=== PATIENT | male | born 1935 | race Caucasian/White ===

== ENCOUNTER 2016-06-26 09:09 | Emergency (ER) | payer BC ==
[~2016-06-26] VITALS: Ht 167.6 cm; Wt 88.6 kg
[~2016-06-26 09:09] MED LIST: AGG PO; ALBU1AER9 INH; ALLO100T PO; ASCO500T16 PO; ATOR-26 PO; CALC1CAP36 PO; CARV6.252 PO; CLON1TAB3 PO; DUTA0.5C PO; EZET10TA63 PO; FISHOIL PO; FLUT0.15 NAE; FURO-85 PO; FURO40TA3 PO; LEVO150T9 PO; MELA3TAB PO; MULTTAB58 PO; NRV5 PO; OMEP20CA59 PO; TRAM-10 PO
[2016-06-26 09:12] VITALS: TEMP 36.7; Ht 167.6 cm; Wt 88.6 kg
[2016-06-26] MEDS ORDERED: ZOLP10TA6 PO (09:31)
[2016-06-26] MEDS ORDERED: FERR1TAB13 PO (09:31)
[2016-06-26] MEDS ORDERED: OMEGCAP2 PO (09:31)
[2016-06-26] MEDS ORDERED: GUAI1TAB75 PO (09:31)
[2016-06-26] MEDS ORDERED: UMEC1AER INH (09:31)
[2016-06-26] MEDS ORDERED: VNTHFA/IN INH (09:31)
[2016-06-26] MEDS ORDERED: FLVHFA110 INH (09:31)
[2016-06-26] MEDS ORDERED: NITR0.4S UT (09:31)
[2016-06-26] MEDS ORDERED: OXYCODONE HCL IR 5 MG TAB (IMMEDIATE RELEASE) PO STA (09:43)
[2016-06-26] MEDS ORDERED: ACYCLOVIR 400 MG TAB PO SCH (09:45)
[2016-06-26] MEDS ORDERED: ACYC-223 PO (09:48)
[2016-06-26] MEDS ORDERED: OXYC1TAB3 PO (09:48)
[2016-06-26 11:01] VITALS: BP 144/67; PULSE 57; O2SAT 98
--- NOTE | 2016-06-26 14:27 | EMERGENCY ROOM VISIT NOTE ---
History Report prepared by Tom: Colleen Rm Under the Supervision of: Dr. Sammy Almendarez D.O. First contact with patient: 09:22 Chief Complaint: ARM PAIN Stated Complaint: RT ARM PAIN History of Present Illness The patient is a 81 year old male who presents to the Emergency Room with complaints of worsening right arm pain that started 3 days ago. He describes the pain as burning. The patient also intermittently experiences right-sided chest pain that is similar to the burning pain that he experiences in his arm. He adds that he has some pain in his right shoulder and the right side of his back also. The patient states that nothing makes the pain better or worse. The patient states that he has not noticed any rash, but the nurse told him that he has blisters on his right arm and right chest. The patient states that the blisters are painful to the touch. He states that he thinks he had chicken pox as a kid, but he is not entirely sure. He states that he got the shingles shot. The patient is also experiencing shortness of breath, but states that it is not anything abnormal for him. He adds that he also has lower extremity edema, but that is not new because his kidney function is bad. The patient denies any other complaints, including nausea, vomiting, and diarrhea. Source of History: patient Onset: 3 days ago Position: arm (right) Quality: burning Timing: worsening Modifying Factors (Worsening): other (None) Modifying Factors (Relieving): other (None) Associated Symptoms: + back pain (right-sided), + chest pain (right-sided), + rash (blisters), No diarrhea, No nausea, No vomiting Review of Systems See HPI for pertinent positives & negatives. A total of 10 systems reviewed and were otherwise negative. 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 (11) Hypothyroidism (12) HYPOTHYROIDISM NOS (13) KNEE JOINT REPLACEMENT STATUS (14) MALIG MELANOMA TRUNK (15) PERSONAL HX OF TIA,& CEREBRAL INFARCTION W/OUT RES DEFICITS (16) PURE HYPERCHOLESTEROLEM (17) TIA (transient ischemic attack) Family History Hypertension Social History Smoking Status: Former Smoker Alcohol Use: occasionally Marital Status: Housing Status: lives with family Occupation Status: retired Current/Historical Medications Scheduled Acyclovir (Zovirax), 800 MG PO 5 TIMES DAILY Allopurinol (Zyloprim), 100 MG PO DAILY Amlodipine Besylate (Amlodipine Besylate), 10 MG PO QPM Ascorbic Acid (Ascorbic Acid), 500 MG PO DAILY Aspirin-Dipyridamole 25MG/200MG (Aggrenox 200MG/25MG), 1 CAPSULE PO BID Atorvastatin (Lipitor), 80 MG PO HS Carvedilol (Coreg), 6.25 MG PO BID Dutasteride (Avodart), 0.5 MG PO QPM Ezetimibe (Zetia), 10 MG PO HS Ferrous Sulfate (Kp Ferrous Sulfate), 325 MG PO 2XWK Fluticasone Propionate (Flovent Hfa), 2 PUFFS INH BID Furosemide (Lasix), 40 MG PO Q2D Furosemide (Lasix), 20 MG PO Q2D Guaifenesin La (Guaifenesin Er), 600 MG PO HS Levothyroxine Sodium (Levothyroxine Sodium), 150 TAB PO DAILY Multiple Vitamin (Multivitamin), 1 TABLET PO DAILY Nitroglycerin (Nitrostat), 0.4 MG UT PRN [place]-3 Fatty Acids (Fish Oil), 1 CAP PO BID Omeprazole (Prilosec), 20 MG PO DAILY Umeclidinium-Vilanterol (Anoro Ellipta 62.5-25 Mcg/INH), 1 PUFF INH DAILY Scheduled PRN Albuterol Hfa (Ventolin Hfa), 2 PUFFS INH Q4H PRN for Wheezing Fluticasone Propionate (Nasal) (Flonase Allergy Relief), 2 SPRAYS STEFFANIE DAILY PRN for CONGESTION Oxycodone Immediate Rel Tab (Roxicodone Ir), 1-2 TAB PO Q4H PRN for Severe Pain Tramadol (Ultram), 50 MG PO Q6H PRN for Pain Zolpidem Tartrate (Zolpidem Tartrate), 10 MG PO HS PRN for Sleep Allergies Coded Allergies: Nabumetone (Verified Adverse Reaction, Severe, ELEVATED RENAL FUNCTION , ) ELEVATED RENAL FUNCTION TEST RELATED TO NAISD'S USE PER DR CHAVIRA'S CONSULT INFO Physical Exam Vital Signs Date Time Temp Pulse Resp B/P Pulse Ox O2 Delivery O2 Flow Rate FiO2 06/26/16 11:01 57 20 144/67 98 Room Air 06/26/16 09:12 36.7 60 18 146/77 97 Room Air Physical Exam GENERAL: alert, sitting up in bed, well appearing, well nourished, no distress, non-toxic EYE EXAM: normal conjunctiva OROPHARYNX: no exudate, no erythema, lips, buccal mucosa, and tongue normal and mucous membranes are moist NECK: supple, no nuchal rigidity, no adenopathy, non-tender LUNGS: Clear to auscultation. Normal chest wall mechanics HEART: no murmurs, S1 normal and S2 normal ABDOMEN: abdomen soft, non-tender, normo-active bowel sounds, no masses, no rebound or guarding. BACK: Back is symmetrical on inspection and there is no deformity, no midline tenderness, no CVA tenderness. SKIN: Erythematous, vesicular rash in T3 dermatome on the right tracking from right chest through armpit to back, lesions are extremely tender to palpation, no surrounding induration. UPPER EXTREMITIES: upper extremities are grossly normal. LOWER EXTREMITIES: No pitting edema. NEURO EXAM: Normal sensorium Medical Decision & Procedures Medications Administered Medications (Trade) Dose Ordered Sig/Ivan Route Start Time Stop Time Status Last Admin Dose Admin Acyclovir (Zovirax Tab) 800 mg NOW PO 06/26/16 09:45 06/26/16 11:40 DC 06/26/16 11:01 800 MG Oxycodone HCl (Roxicodone Immediate Rel Tab) 5 mg NOW STAT PO 06/26/16 09:43 06/26/16 09:46 DC 06/26/16 10:14 5 MG ED Course ED COURSE: Vital signs were reviewed and showed normal. The patients medical record was reviewed The above diagnostic studies were performed and reviewed. ED treatments and interventions as stated above. 0926: The patient was evaluated in room B2. A complete history and physical examination was performed. 0943: Ordered Oxycodone HCl 5 mg PO 0945: Ordered Acyclovir 800 mg PO 0956: Upon reevaluation, the patient is doing well. I discussed my findings with the patient and he understands and agrees with the treatment plan. Based on the patients age, coexisting illnesses, exam and lab findings the decision to treat as an outpatient was made. The patient remained stable while under my care. The patient appeared well at the time of discharge. Medical Decision Differential diagnoses includes but is not limited to acute coronary syndrome, myocardial infarction, pericarditis, pulmonary embolus, aortic dissection, pneumonia, pneumothorax, musculoskeletal, shingles, esophageal. Patient is an 81-year-old male who presents the ER for right arm pain which has been present for the past 3 days. Upon presentation he is found have a rash which is erythematous and vesicles present in dermatomal T3. This tracks under his armpit is consistent with his pain. He is hypersensitive in this region. No new shortness of breath. On exam he has a clear zoster outbreak. Patient was updated in regards to his findings was discharged with acyclovir and OxyIR to follow-up with his primary care doctor. Discussed with Pt concerning signs and symptoms to watch out for. Pt was instructed to follow up with their PCP and discussed with the patient their option to return to the ED at anytime for persistent or worsening symptoms. The appropriate anticipatory guidance and out- patient management, including indications for return to the emergency department , were explained at length to the patient and understood. Impression Primary Impression: Zoster Scribe Attestation The scribe's documentation has been prepared under my direction and personally reviewed by me in its entirety. I confirm that the note above accurately reflects all work, treatment, procedures, and medical decision making performed by me. Departure Information Dispostion Home / Self-Care Prescriptions Oxycodone Immediate Rel Tab (ROXICODONE IR) 5 Mg Tab 1-2 TAB PO Q4H Y for Severe Pain, #24 TAB Prov: Sammy Almendarez, DO 06/26/16 Acyclovir (Zovirax) 800 Mg Tab 800 MG PO 5 TIMES DAILY for 7 Days, TAB Prov: Sammy Almendarez, DO 06/26/16 Referrals Michael Bennett M.D. (PCP) Forms HOME CARE DOCUMENTATION FORM, IMPORTANT VISIT INFORMATION Patient Instructions My [facility], Shingles Herpes Zoster Additional Instructions Please follow up with your primary care doctor with in the next 24 hours. Any worsening of your symptoms, please return to the ED immediately. This includes fevers greater than 100.4, worsening pain, passing out, or significant redness around the rash, or any other concerning signs or symptoms from your standpoint. Please take pain medications as prescribed along with the acyclovir. You were given medications during this visit that will inhibit your ability to drive, operate machinery and work. Please do NOT drive, operate machinery or work for the next 12hrs. You were also given a prescription for a narcotic/oxy IR. While taking this medication you should also not drive, operate machinery and or work. Problem Qualifiers Primary Impression: Zoster Herpes zoster complications: unspecified herpes zoster complication Qualified Codes: B02.8 - Zoster with other complications
== END 2016-06-26 11:03 | disposition home or self-care (01) ==
LOC: C.EDB 09:10
DX: B02.8 Zoster with other complications (principal); N18.4 Chronic kidney disease, stage 4 (severe); I12.9 Hypertensive chronic kidney disease with stage 1 through stage 4 chronic kidney disease, or unspecified chronic kidney disease; Z86.73 Personal history of transient ischemic attack (TIA), and cerebral infarction without residual deficits; I25.10 Atherosclerotic heart disease of native coronary artery without angina pectoris; M10.9 Gout, unspecified; E78.5 Hyperlipidemia, unspecified; E03.9 Hypothyroidism, unspecified; Z96.659 Presence of unspecified artificial knee joint; Z85.820 Personal history of malignant melanoma of skin; Z82.49 Family history of ischemic heart disease and other diseases of the circulatory system; Z87.891 Personal history of nicotine dependence; N40.0 Benign prostatic hyperplasia without lower urinary tract symptoms; E11.9 Type 2 diabetes mellitus without complications; Z79.899 Other long term (current) drug therapy; E78.00 Pure hypercholesterolemia, unspecified

== ENCOUNTER 2016-07-13 09:42 | Emergency (ER) | payer BC ==
[~2016-07-13] VITALS: Ht 165.1 cm; Wt 83.6 kg
[~2016-07-13 09:42] MED LIST changes: -ALBU1AER9 INH; -CALC1CAP36 PO; -CLON1TAB3 PO; +FERR1TAB13 PO; -FISHOIL PO; +FLVHFA110 INH; +GUAI1TAB75 PO; -MELA3TAB PO; +NITR0.4S UT; +OMEGCAP2 PO; +OXYC1TAB3 PO; +UMEC1AER INH; +VNTHFA/IN INH; +ZOLP10TA6 PO
[2016-07-13 09:49] VITALS: TEMP 36.5; Ht 165.1 cm; Wt 83.6 kg
[2016-07-13] MEDS ORDERED: GABAPENTIN 300 MG CAP PO STA (10:35)
[2016-07-13] MEDS ORDERED: SODIUM CHLORIDE 0.9% 1000ML 1,000 ML IV STA (10:35)
[2016-07-13] MEDS ORDERED: FENTANYL CITRATE INJ 50 MCG/1 ML 2 ML VIAL IV STA (10:35)
--- NOTE | 2016-07-13 10:41 | EMERGENCY ROOM VISIT NOTE ---
History Report prepared by Tom: Jairo Villagran Under the Supervision of: Dr. Monica Goodrich M.D. First contact with patient: 10:18 Chief Complaint: RIB PAIN Stated Complaint: BEHIND SHOULDER/RIB PAIN History of Present Illness The patient is an 81 year old male who presents to the Emergency Room with complaints of persistent shingles-associated pain. The pain has been severe over the past two days. The patient has shingles over his right rib and shoulder area. The patient did not have any relief with oxycodone last night. He follows with Dr. Bennett. The patient has been in the ED with shingles two weeks ago as well. Source of History: patient Onset: two days Position: other (right rib / shoulder) Symptom Intensity: severe Quality: other (shingles-associated) Timing: other (persistent) Modifying Factors (Relieving): other (no relief with Oxycodone) Review of Systems See HPI for pertinent positives & negatives. A total of 10 systems reviewed and were otherwise negative. 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,& CEREBRAL INFARCTION W/OUT RES DEFICITS (16) PURE HYPERCHOLESTEROLEM (17) TIA (transient ischemic attack) Family History Hypertension Social History Smoking Status: Former Smoker Alcohol Use: occasionally Marital Status: Housing Status: lives with family Occupation Status: retired Current/Historical Medications Scheduled Allopurinol (Zyloprim), 100 MG PO DAILY Amlodipine Besylate (Amlodipine Besylate), 10 MG PO QPM Ascorbic Acid (Ascorbic Acid), 500 MG PO DAILY Aspirin-Dipyridamole 25MG/200MG (Aggrenox 200MG/25MG), 1 CAPSULE PO BID Atorvastatin (Lipitor), 80 MG PO HS Carvedilol (Coreg), 6.25 MG PO BID Dutasteride (Avodart), 0.5 MG PO QPM Ezetimibe (Zetia), 10 MG PO HS Fluticasone Propionate (Flovent Hfa), 2 PUFFS INH BID Furosemide (Lasix), 40 MG PO Q2D Furosemide (Lasix), 20 MG PO Q2D Gabapentin (Neurontin), 1 CAP PO DAILY Guaifenesin La (Guaifenesin Er), 600 MG PO HS Levothyroxine Sodium (Levothyroxine Sodium), 150 TAB PO DAILY Multiple Vitamin (Multivitamin), 1 TABLET PO DAILY Nitroglycerin (Nitrostat), 0.4 MG UT PRN [place]-3 Fatty Acids (Fish Oil), 1 CAP PO BID Omeprazole (Prilosec), 20 MG PO DAILY Umeclidinium-Vilanterol (Anoro Ellipta 62.5-25 Mcg/INH), 1 PUFF INH DAILY Scheduled PRN Albuterol Hfa (Ventolin Hfa), 2 PUFFS INH Q4H PRN for Wheezing Fluticasone Propionate (Nasal) (Flonase Allergy Relief), 2 SPRAYS STEFFANIE DAILY PRN for CONGESTION Oxycodone Immediate Rel Tab (Roxicodone Ir), 1-2 TAB PO Q4H PRN for Severe Pain Tramadol (Ultram), 50 MG PO Q6H PRN for Pain Zolpidem Tartrate (Zolpidem Tartrate), 10 MG PO HS PRN for Sleep Allergies Coded Allergies: Nabumetone (Verified Adverse Reaction, Severe, ELEVATED RENAL FUNCTION , ) ELEVATED RENAL FUNCTION TEST RELATED TO NAISD'S USE PER DR CHAVIRA'S CONSULT INFO Physical Exam Vital Signs Date Time Temp Pulse Resp B/P (MAP) Pulse Ox O2 Delivery O2 Flow Rate FiO2 07/13/16 13:31 139/83 07/13/16 13:17 64 19 92 07/13/16 13:01 152/77 07/13/16 12:47 66 15 94 07/13/16 12:31 138/67 07/13/16 12:17 59 17 07/13/16 12:02 144/73 07/13/16 11:47 61 12 07/13/16 11:42 62 16 96 07/13/16 11:32 164/90 07/13/16 11:12 61 98 07/13/16 11:02 180/99 07/13/16 10:44 183/91 07/13/16 10:42 62 23 97 07/13/16 10:14 64 07/13/16 10:12 64 18 95 07/13/16 09:49 36.5 67 18 159/83 99 Room Air Physical Exam Vital signs reviewed. General: Well-appearing elderly male, in some discomfort. HEENT: No scleral icterus, PERRLA, neck supple. Atraumatic. Cardiovascular: Regular rate and rhythm, no extra sounds. Pulmonary: Clear to auscultation bilaterally, normal work of breathing. Abdomen: Soft, nontender, nondistended, positive bowel sounds. Musculoskeletal: Atraumatic, no peripheral edema. Neurologic: Patient awake alert and oriented x 3, full strength in all 4 extremities. Cranial nerves 2 through 12 grossly intact. Skin: Healing rash to the right anterior chest and right upper back in a dermatome fashion, no active lesions, no cellulitis. Medical Decision & Procedures Laboratory Results 07/13/16 10:55 Red Blood Count 3.90, Mean Corpuscular Volume 93.1, Mean Corpuscular Hemoglobin 30.5, Mean Corpuscular Hemoglobin Concent 32.8, Mean Platelet Volume 9.7, Neutrophils (%) (Auto) 80.4, Lymphocytes (%) (Auto) 11.9, Monocytes (%) (Auto) 4.1, Eosinophils (%) (Auto) 3.0, Basophils (%) (Auto) 0.1, Neutrophils # (Auto) 6.93, Lymphocytes # (Auto) 1.03, Monocytes # (Auto) 0.35, Eosinophils # (Auto) 0.26, Basophils # (Auto) 0.01 07/13/16 10:55 Test 07/13/16 10:55 White Blood Count 8.62 K/uL (4.8-10.8) Red Blood Count 3.90 M/uL (4.7-6.1) Hemoglobin 11.9 g/dL (14.0-18.0) Hematocrit 36.3 % (42-52) Mean Corpuscular Volume 93.1 fL (80-100) Mean Corpuscular Hemoglobin 30.5 pg (25-34) Mean Corpuscular Hemoglobin Concent 32.8 g/dl (32-36) Platelet Count 239 K/uL (130-400) Mean Platelet Volume 9.7 fL (7.4-10.4) Neutrophils (%) (Auto) 80.4 % Lymphocytes (%) (Auto) 11.9 % Monocytes (%) (Auto) 4.1 % Eosinophils (%) (Auto) 3.0 % Basophils (%) (Auto) 0.1 % Neutrophils # (Auto) 6.93 K/uL (1.4-6.5) Lymphocytes # (Auto) 1.03 K/uL (1.2-3.4) Monocytes # (Auto) 0.35 K/uL (0.11-0.59) Eosinophils # (Auto) 0.26 K/uL (0-0.5) Basophils # (Auto) 0.01 K/uL (0-0.2) RDW Standard Deviation 44.7 fL (36.4-46.3) RDW Coefficient of Variation 14.3 % (11.5-14.5) Immature Granulocyte % (Auto) 0.5 % Immature Granulocyte # (Auto) 0.04 K/uL (0.00-0.02) Anion Gap 7.0 mmol/L (3-11) Est Creatinine Clear Calc Drug Dose 15.2 ml/min Estimated GFR () 16.2 Estimated GFR (Non- 14.0 BUN/Creatinine Ratio 14.8 (10-20) Calcium Level 8.7 mg/dl (8.5-10.1) Magnesium Level 2.4 mg/dl (1.8-2.4) Total Bilirubin 1.0 mg/dl (0.2-1) Direct Bilirubin 0.2 mg/dl (0-0.2) Aspartate Amino Transf (AST/SGOT) 19 U/L (15-37) Alanine Aminotransferase (ALT/SGPT) 19 U/L (12-78) Alkaline Phosphatase 62 U/L (45-117) Total Protein 6.6 gm/dl (6.4-8.2) Albumin 3.4 gm/dl (3.4-5.0) Laboratory results per my review. Medications Administered Medications (Trade) Dose Ordered Sig/Ivan Route Start Time Stop Time Status Last Admin Dose Admin Sodium Chloride 1,000 ml @ 125 mls/hr Q8H STAT IV 07/13/16 10:35 07/13/16 14:23 DC 07/13/16 11:11 125 MLS/HR Fentanyl Citrate (Fentanyl Inj) 50 mcg NOW STAT IV 07/13/16 10:35 07/13/16 10:38 DC 07/13/16 11:08 50 MCG Gabapentin (Neurontin Cap) 300 mg NOW STAT PO 07/13/16 10:35 07/13/16 10:38 DC 07/13/16 10:51 300 MG Morphine Sulfate (MoRPHine SULFATE INJ) 4 mg NOW STAT IV 07/13/16 11:35 07/13/16 11:37 DC 07/13/16 11:40 4 MG Ondansetron HCl (Zofran Inj) 4 mg NOW STAT IV 07/13/16 12:48 07/13/16 12:50 DC 07/13/16 12:55 4 MG ED Course 1035: Past medical records reviewed. The patient was evaluated in room A12b. A complete history and physical examination was performed. 1035: Gabapentin 300 mg PO, Fentanyl 50 mcg IV, NSS 1000 ml @ 125 mls/hr, Morphine Sulfate 4 mg IV. 1248: Zofran 4 mg IV. 1330: Reassessed the patient. Discussed the discharge instructions with him and he verbalized understanding and agreement. The patient is ready for discharge. Medical Decision Differential diagnosis includes post-herpetic neuralgia, cellulitis, ACS, pulmonary embolus, musculoskeletal pain. Medication Reconciliation: I attest that I have personally reviewed the patient' s current medication list. Blood Pressure Screening: Patient was found to have a slightly elevated blood pressure for which she is already on amlodipine and Coreg. This pt was evaluated and appeared to be in non distress. IV access was obtained and lab work was drawn. Pt was hydrated with NSS, given IV fentanyl and neurontin. Lab work is fairly unrevealing. Pt was educated on the findings. He was given a dose of IV morphine for continued pain. Pt was Rx neurontin and has Oxy IR already for breakthrough pain. He will f/u with his PCP this week and return to the ED for worsening of symptoms or any medical concerns. Impression Primary Impression: Post herpetic neuralgia Scribe Attestation The scribe's documentation has been prepared under my direction and personally reviewed by me in its entirety. I confirm that the note above accurately reflects all work, treatment, procedures, and medical decision making performed by me. Departure Information Dispostion Home / Self-Care Prescriptions Gabapentin (NEURONTIN) 300 Mg Cap 1 CAP PO DAILY for 30 Days, #30 CAP 0 Refills Prov: Monica Goodrich M.D. 07/13/16 Referrals Michael Bennett M.D. (PCP) Forms HOME CARE DOCUMENTATION FORM, IMPORTANT VISIT INFORMATION, WORK / SCHOOL INSTRUCTIONS Patient Instructions My [facility] Additional Instructions Diagnosis: Postherpetic neuralgia Neurontin 300 mg once daily. Continue your oxycodone, one tablet every 6 hours as needed for severe pain. Drink plenty of clear fluids. Follow-up with your physician this week for reevaluation. Case management will help arrange for the appointment. Return to the emergency department for worsening of symptoms or any medical concerns.
[2016-07-13 11:07] LABS: BASO % 0.1 %; BASO ABS # 0.01 K/uL (0-0.2); COMPLETE YES; HEMATOCRIT 36.3 % (42-52); IG% 0.5 %; LYMPH % 11.9 %; LYMPH ABS # 1.03 K/uL (1.2-3.4); MEAN CELL VOLUME 93.1 fL (80-100); MEAN CORPUSCULAR HEMOGLOBIN 30.5 pg (25-34); MEAN CORPUSCULAR HGB CONC 32.8 g/dl (32-36); MEAN PLATELET VOLUME 9.7 fL (7.4-10.4); MONO % 4.1 %; NEUT % 80.4 %; PLATELET COUNT 239 K/uL (130-400); WHITE BLOOD COUNT 8.62 K/uL (4.8-10.8)
[2016-07-13 11:28] LABS: BUN/CREATININE RATIO 14.8 (10-20); CALCIUM 8.7 mg/dl (8.5-10.1); CREATININE 3.8 mg/dl (0.60-1.40); MAGNESIUM 2.4 mg/dl (1.8-2.4); POTASSIUM 3.7 mmol/L (3.5-5.1)
[2016-07-13] MEDS ORDERED: MoRPHine SULFATE 4 MG/ML 1 ML CARP\\VIAL IV STA (11:35)
[2016-07-13] MEDS ORDERED: ONDANSETRON INJ 2 MG/ML 2 ML VIAL IV STA (12:48)
[2016-07-13 13:17] VITALS: PULSE 64; O2SAT 92
[2016-07-13] MEDS ORDERED: NRN/300 PO (13:23)
[2016-07-13 13:31] VITALS: BP 139/83
== END 2016-07-13 13:49 | disposition home or self-care (01) ==
LOC: C.EDB 09:44 → C.EDA 13:49
DX: B02.29 Other postherpetic nervous system involvement (principal); E11.9 Type 2 diabetes mellitus without complications; I12.9 Hypertensive chronic kidney disease with stage 1 through stage 4 chronic kidney disease, or unspecified chronic kidney disease; N18.4 Chronic kidney disease, stage 4 (severe); E78.5 Hyperlipidemia, unspecified; E78.00 Pure hypercholesterolemia, unspecified; E03.9 Hypothyroidism, unspecified; I25.10 Atherosclerotic heart disease of native coronary artery without angina pectoris; M10.9 Gout, unspecified; Z86.73 Personal history of transient ischemic attack (TIA), and cerebral infarction without residual deficits; Z85.820 Personal history of malignant melanoma of skin; Z96.659 Presence of unspecified artificial knee joint; Z79.82 Long term (current) use of aspirin; Z79.899 Other long term (current) drug therapy; Z87.891 Personal history of nicotine dependence; Z82.49 Family history of ischemic heart disease and other diseases of the circulatory system

== ENCOUNTER → 2017-01-26 | Outpatient (CLI) | payer BC ==
[~2017-01-26] MED LIST changes: +ATROPINE SULFATE 0.1 MG/ML 5ML SYR ONE; +DOBUTamine HCL 12.5 MG/ML 20 ML VIAL ONE; -FERR1TAB13 PO; +METOPROLOL TARTRATE 1 MG/ML VIAL ONE; +NRN/300 PO; -OXYC1TAB3 PO; +PERFLUTREN LIPID MICROSPHERE (DEFINITY) IV ONE
[2017-01-26 10:45] LABS: CHOLESTEROL/HDL RATIO 1.9
--- NOTE | 2017-01-26 13:35 | DOBUTAMINE ECHO ---
*NOTICE TO RECEIVING [facility] This information is strictly Confidential and protected under [place] law. [place] law prohibits you from making any further disclosure of this information unless further disclosure is expressly permitted by the written consent of the person to whom it pertains or is authorized by law. A general authorization for the release of medical or other information is not sufficient for this purpose. Hospital accepts no responsibility if the information is made available to any other person, INCLUDING THE PATIENT. Interpretation Summary * Name: BOBBY KEARNEY Study Date: 01/26/2017 09:45 AM BP: 150/77 mmHg * Patient Location: [facility] HR: 55 * : 1935 (M/d/yyyy) Gender: Male Height: 66 in * Age: 81 yrs Ethnicity: [place] Weight: 180 lb * Ordering Physician: Anthony Olivas * Referring Physician: Anthony Olivas * Performed By: Tracy Lane RDCS * * Reason For Study: CAD, MARKS, pre-op shoulder, HTN, RCA stent 1996 * BSA: 1.9 m2 * STRESS STUDY: Normal pharmacologic stress echocardiogram. No echocardiographic or ECG evidence of myocardial ischemia having achieved heart rate adequate for diagnostic purposes. * -- Conclusions -- * There was an adequate and appropriate heart rate response to dobutamine/atropine infusion. * The patient exhibited a hypertensive response with stress. * Stress ECG: No ST changes. No arrhythmias. * Resting wall motion: Normal. Stress wall motion: Appropriate increase in Left ventricular systolic function and decrease in cavity size. No stress induced segmental wall motion abnormalities. * Left ventricular systolic function is normal. * Ejection Fraction = 65-70%. * Aortic valve sclerosis moderate, without significant aortic valvular stenosis. Procedure Details * DOBUTAMINE ECHO, CPT#[id number] * ECHO DOPPLER, CPT #[id number] * ECHO COLOR FLOW, CPT #[id number] * A contrast injection of Definity was performed to improve assessment of LV function. * Contrast was injected into an intravenous site in the right arm. * One vial of Definity ultrasound contrast was diluted in normal saline to a total volume of 10 ml. A total of '7' ml of solution was administered during imaging. * Lot # [id number] of Definity utilized for procedure. * Expiration date APR 02. * The attending nurse who injected the contrast agent was Kerri Maza RN. Left Ventricle * The left ventricle is normal in size. * There is borderline concentric left ventricular hypertrophy. * Ejection Fraction = 65-70%. * Left ventricular systolic function is normal. * Resting wall motion: Normal. Stress wall motion: Appropriate increase in Left ventricular systolic function and decrease in cavity size. No stress induced segmental wall motion abnormalities. Right Ventricle * The right ventricle is normal in size and function. Atria * Borderline left atrial enlargement. * Right atrial size is normal. * No ASD detected; PFO is not assessed. Mitral Valve * There is mild mitral annular calcification. * There is no mitral valve stenosis. * There is trace mitral regurgitation. Tricuspid Valve * The tricuspid valve anatomy is normal. * There is no tricuspid stenosis. * Significant tricuspid regurgitation is absent. Aortic Valve * The aortic valve is trileaflet. * Aortic valve sclerosis moderate, without significant aortic valvular stenosis. * There is no significant aortic regurgitation. Pulmonic Valve * The pulmonary valve is not well seen, but the Doppler examination is normal without significant regurgitation or stenosis. Great Vessels * The aortic root is normal size. Pericardium * There is no pericardial effusion. Stress Parameters * Normal baseline electrocardiogram. * Stress ECG: No ST changes. No arrhythmias. * The stress portion of this study was personally supervised by the undersigned interpreting physician. * Rest heart rate was '55' BPM. * Rest blood pressure was '150/77' * Maximum heart rate achieved was 123 bpm. * Maximum heart rate was 88 % of maximum age-predicted heart rate. * Maximum blood pressure was '230/109' * Maximum Dobutamine infusion rate was '40' mcg/kg/min. * A total of 0.75 mg of intravenous Atropine was used to supplement Dobutamine for heart rate response. * Dobutamine infusion was terminated due to achieving target heart rate * A total of 5 mg of IV Metoprolol was administered to reverse Dobutamine-induced tachycardia. * The patient exhibited a hypertensive response with stress. Left Ventricular Diastolic Function * Grade I diastolic dysfunction, (abnormal relaxation pattern). MMode 2D Measurements and Calculations IVSd 1.1 cm LVIDd 4.1 cm LVIDs 2.7 cm LVPWd 1.0 cm IVS/LVPW 1.1 FS 34.3 % EDV(Teich) 72.2 ml ESV(Teich) 26.1 ml EF(Teich) 63.9 % EDV(cubed) 66.5 ml ESV(cubed) 18.8 ml EF(cubed) 71.7 % LV mass(C)d 146.3 grams LV mass(C)dI 76.5 grams/m\S\2 SV(Teich) 46.1 ml SI(Teich) 24.1 ml/m\S\2 SV(cubed) 47.7 ml SI(cubed) 24.9 ml/m\S\2 Ao root diam 3.2 cm Ao root area 7.9 cm\S\2 ACS 1.5 cm LA dimension 3.4 cm asc Aorta Diam 3.7 cm LA/Ao 1.1 LVOT diam 1.8 cm LVOT area 2.5 cm\S\2 LVAd ap4 37.9 cm\S\2 LVLd ap4 8.8 cm EDV(MOD-sp4) 135.4 ml EDV(sp4-el) 138.9 ml LVAs ap4 20.1 cm\S\2 LVLs ap4 7.7 cm ESV(MOD-sp4) 44.2 ml ESV(sp4-el) 45.0 ml EF(MOD-sp4) 67.4 % EF(sp4-el) 67.6 % LVAd ap2 30.0 cm\S\2 LVLd ap2 8.4 cm EDV(MOD-sp2) 89.5 ml EDV(sp2-el) 91.2 ml LVAs ap2 14.2 cm\S\2 LVLs ap2 7.2 cm ESV(MOD-sp2) 24.5 ml ESV(sp2-el) 23.8 ml EF(MOD-sp2) 72.6 % EF(sp2-el) 73.9 % LVLd %diff -4.68 % EDV(MOD-bp) 113.9 ml LVLs %diff -6.81 % ESV(MOD-bp) 34.0 ml EF(MOD-bp) 70.1 % SV(MOD-sp4) 91.3 ml SI(MOD-sp4) 47.7 ml/m\S\2 SV(MOD-sp2) 65.0 ml SI(MOD-sp2) 34.0 ml/m\S\2 SV(MOD-bp) 79.8 ml SI(MOD-bp) 41.7 ml/m\S\2 SV(sp4-el) 93.9 ml SI(sp4-el) 49.1 ml/m\S\2 SV(sp2-el) 67.4 ml SI(sp2-el) 35.2 ml/m\S\2 Doppler Measurements and Calculations MV E max all 80.5 cm/sec MV A max all 107.2 cm/sec MV E/A 0.75 MV dec time 0.41 sec Ao V2 max 182.5 cm/sec Ao max PG 13.3 mmHg Ao max PG (full) 8.2 mmHg KAREN(V,A) 1.5 cm\S\2 KAREN(V,D) 1.5 cm\S\2 LV V1 max PG 5.2 mmHg LV V1 max 113.5 cm/sec PA V2 max 142.5 cm/sec PA max PG 8.1 mmHg PA acc slope 495.9 cm/sec\S\2 PA acc time 0.18 sec PI max all 143.9 cm/sec PI max PG 8.3 mmHg PI dec slope 91.6 cm/sec\S\2 PI P1/2t 460.0 msec TR max all 196.8 cm/sec PA pr(Accel) -0.22 mmHg
== END | disposition home or self-care (01) ==
LOC: C.CPL 09:26
PROVIDERS: ATTEND Internal Medicine Cardiovascular Disease
DX: Z01.810 Encounter for preprocedural cardiovascular examination (principal); I25.118 Atherosclerotic heart disease of native coronary artery with other forms of angina pectoris; I10 Essential (primary) hypertension; Z95.9 Presence of cardiac and vascular implant and graft, unspecified; R06.09 Other forms of dyspnea

== ENCOUNTER 2017-06-27 20:16 | Inpatient (IN) | payer BC, OTHER ==
[~2017-06-27] VITALS: Ht 167.6 cm; Wt 81.8 kg
[~2017-06-27 20:16] MED LIST changes: -ALBUT/IPRATROP 3MG/0.5MG NEB 3 ML VIAL INH STA; -EpHEDrine SULFATE 50MG/5ML SYR ONE; -LIDOCAINE HCL 2% 2 ML VIAL (20MG/ML) ONE; -PROPOFOL IV EMULSION 10 MG/ML 20 ML VIAL ONE; -SODIUM CHLORIDE 0.9% 500ML 500 ML IV ONE; -VANC5CAP OR
--- NOTE | 2017-06-27 20:54 | EMERGENCY ROOM VISIT NOTE ---
History Report prepared by Tom: Reed Amador Under the Supervision of: Dr. Feroz Johnston D.O. First contact with patient: 20:23 Chief Complaint: RECTAL BLEEDING Stated Complaint: BLEEDING FROM RECTUM POST COLONOSCOPY Nursing Triage Summary: rectal bleeding History of Present Illness The patient is an 82 year old male who presents to the Emergency Room with complaints of persistent rectal bleeding beginning at 1400 today. Per EMR, the patient had a colonoscopy done today by Dr. Morrow. The report states that the patient had polyps, hemorrhoids, and diverticulosis. The report notes that he had a pap smear removal of 14 polyps from the ascending colon and cecum, as well as 5 polyps from the transverse colon. The report states that the polyps were removed via hot snare. The patient notes that he started having rectal bleeding around 1400 when he got home from his colonoscopy. He also complains of SOB on exertion and nausea, but denies any vomiting and abdominal pain. He reports that he had about 10-12 loose bowel movements today. The patient states that he took Lovenox this morning before his procedure, but has not taken any for the rest of the day. He notes that he has a history of stage four kidney disease and has a hernia, but has not had a blood transfusion in the past. Source of History: patient, other (EMR) Onset: 1400 today Position: other (rectum) Quality: other (bleeding) Timing: other (persistent) Associated Symptoms: + SOB (on exertion), + nausea, No vomiting, No abdominal pain Note: The patient also complains of about 10-12 loose bowel movements today. Review of Systems See HPI for pertinent positives & negatives. A total of 10 systems reviewed and were otherwise negative. 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 (14) Hypothyroidism (15) HYPOTHYROIDISM NOS (16) KNEE JOINT REPLACEMENT STATUS (17) MALIG MELANOMA TRUNK (18) PERSONAL HX OF TIA,& CEREBRAL INFARCTION W/OUT RES DEFICITS (19) PURE HYPERCHOLESTEROLEM (20) TIA (transient ischemic attack) Surgical Problems: (1) H/O colonoscopy (2) History of cholecystectomy Family History Heart disease Hypertension Social History Smoking Status: Former Smoker Alcohol Use: occasionally Marital Status: Housing Status: lives with family Occupation Status: retired Current/Historical Medications Scheduled Allopurinol (Zyloprim), 100 MG PO QAM Amlodipine Besylate (Amlodipine Besylate), 5 MG PO BID Ascorbic Acid (Ascorbic Acid), 500 MG PO DAILY Aspirin-Dipyridamole 25MG/200MG (Aggrenox 200MG/25MG), 1 CAPSULE PO BID Atorvastatin (Lipitor), 80 MG PO HS Carvedilol (Coreg), 6.25 MG PO AMHS Dutasteride (Avodart), 0.5 MG PO DAILY Ezetimibe (Zetia), 10 MG PO HS Furosemide (Lasix), 40 MG PO BID Levothyroxine Sodium (Levothyroxine Sodium), 1 TAB PO DAILY Melatonin (Melatonin Maximum Strengt), 1 TAB PO HS Nitroglycerin (Nitrostat), 0.4 MG UT PRN [place]-3 Fatty Acids (Fish Oil), 1 CAP PO BID Polyethylene Glycol 3350 (Miralax), 17 GM PO QAM Ranitidine (Zantac), 150 MG PO DAILY Zolpidem Tartrate (Ambien), 10 MG PO HS Scheduled PRN Albuterol Hfa (Ventolin Hfa), 2 PUFFS INH Q4H PRN for Wheezing Fluticasone Propionate (Nasal) (Flonase Allergy Relief), 2 SPRAYS STEFFANIE DAILY PRN for CONGESTION Allergies Coded Allergies: No Known Allergies (Unverified , 06/27/17) Physical Exam Vital Signs Date Time Temp Pulse Resp B/P (MAP) Pulse Ox O2 Delivery O2 Flow Rate FiO2 06/27/17 20:45 65 06/27/17 20:44 65 20 172/89 98 Room Air 06/27/17 20:42 97 Room Air 06/27/17 20:18 36.7 70 20 127/75 98 Room Air Physical Exam GENERAL: Patient is awake, alert, and in no acute distress. Patient is resting comfortably and showing no signs of anxiety EYES: The conjunctivae are clear. The pupils are round and reactive. EARS, NOSE, MOUTH AND THROAT: The nose is without any evidence of any deformity. Mucous membranes are moist tongue is midline NECK: The neck is nontender and supple. RESPIRATORY: Normal respiratory effort is noted there is no evidence of wheezing rhonchi or rales CARDIOVASCULAR: Heart sounds have a regular rhythm and rate noted to auscultation, systolic murmur suggested. GASTROINTESTINAL: Mildly distended abdomen, diffusely tender, no guarding or rigidity noted. PELVIS: The Pelvis is stable. No tenderness to palpation is noted. BACK: No midline tenderness or or step-off noted range of motion in flexion extension as well as rotation no signs of muscle spasm noted MUSCULOSKELETAL/EXTREMITIES: There is no evidence of gross deformity full range of motion is noted in the hips and shoulders SKIN: There is no obvious evidence of any rash. There are no petechiae, pallor or cyanosis noted, pedal edema bilaterally. NEUROLOGIC: Patient is awake alert and oriented x3 Medical Decision & Procedures ER Provider Diagnostic Interpretation: Radiology results as stated below per my review and radiologist interpretation: CHEST ONE VIEW PORTABLE FINDINGS: Punctate nodular densities within the right midlung zone remain unchanged. This favors calcified granulomas. The lungs are otherwise clear. No pleural effusions. No pneumothorax. Right shoulder prosthesis. The heart is normal in size. IMPRESSION: No significant change compared to the prior study. No acute process. Electronically signed by: Kameron Rojas M.D. 06/27/2017 9:00 PM Laboratory Results 06/27/17 20:40 Red Blood Count 3.27, Mean Corpuscular Volume 91.1, Mean Corpuscular Hemoglobin 30.6, Mean Corpuscular Hemoglobin Concent 33.6, Mean Platelet Volume 10.1, Neutrophils (%) (Auto) 78.3, Lymphocytes (%) (Auto) 9.1, Monocytes (%) (Auto) 7.5, Eosinophils (%) (Auto) 4.7, Basophils (%) (Auto) 0.2, Neutrophils # (Auto) 6.39, Lymphocytes # (Auto) 0.74, Monocytes # (Auto) 0.61, Eosinophils # (Auto) 0.38, Basophils # (Auto) 0.02 06/27/17 20:40 Test 06/27/17 20:40 White Blood Count 8.16 K/uL (4.8-10.8) Red Blood Count 3.27 M/uL (4.7-6.1) Hemoglobin 10.0 g/dL (14.0-18.0) Hematocrit 29.8 % (42-52) Mean Corpuscular Volume 91.1 fL (80-100) Mean Corpuscular Hemoglobin 30.6 pg (25-34) Mean Corpuscular Hemoglobin Concent 33.6 g/dl (32-36) Platelet Count 222 K/uL (130-400) Mean Platelet Volume 10.1 fL (7.4-10.4) Neutrophils (%) (Auto) 78.3 % Lymphocytes (%) (Auto) 9.1 % Monocytes (%) (Auto) 7.5 % Eosinophils (%) (Auto) 4.7 % Basophils (%) (Auto) 0.2 % Neutrophils # (Auto) 6.39 K/uL (1.4-6.5) Lymphocytes # (Auto) 0.74 K/uL (1.2-3.4) Monocytes # (Auto) 0.61 K/uL (0.11-0.59) Eosinophils # (Auto) 0.38 K/uL (0-0.5) Basophils # (Auto) 0.02 K/uL (0-0.2) RDW Standard Deviation 45.6 fL (36.4-46.3) RDW Coefficient of Variation 13.6 % (11.5-14.5) Immature Granulocyte % (Auto) 0.2 % Immature Granulocyte # (Auto) 0.02 K/uL (0.00-0.02) Prothrombin Time 10.8 SECONDS (9.0-12.0) Prothromb Time International Ratio 1.0 (0.9-1.1) Activated Partial Thromboplast Time 27.8 SECONDS (21.0-31.0) Partial Thromboplastin Ratio 1.1 Anion Gap 6.0 mmol/L (3-11) Est Creatinine Clear Calc Drug Dose 17.8 ml/min Estimated GFR () 19.9 Estimated GFR (Non- 17.2 BUN/Creatinine Ratio 16.1 (10-20) Calcium Level 8.0 mg/dl (8.5-10.1) Magnesium Level 2.3 mg/dl (1.8-2.4) Total Bilirubin 0.6 mg/dl (0.2-1) Direct Bilirubin 0.2 mg/dl (0-0.2) Aspartate Amino Transf (AST/SGOT) 20 U/L (15-37) Alanine Aminotransferase (ALT/SGPT) 20 U/L (12-78) Alkaline Phosphatase 53 U/L (45-117) Total Protein 6.2 gm/dl (6.4-8.2) Albumin 3.2 gm/dl (3.4-5.0) Lipase 193 U/L (73-393) Laboratory results per my review. Medications Administered Medications (Trade) Dose Ordered Sig/Ivan Route Start Time Stop Time Status Last Admin Dose Admin Desmopressin Acetate 20 mcg/ Sodium Chloride 55 ml @ 100 mls/hr NOW STAT IV 06/27/17 21:36 06/27/17 22:08 06/27/17 22:06 100 MLS/HR ED Course 2023: The patient was evaluated in room C11. A complete history and physical examination were performed. 2109: I called out for Kylee Green. 2113: I reevaluated and updated the patient. 2114: Discussed the patient's case with Kylee Green. He suggests talking to the admitting team as he does not have a service. 2119: Upon reevaluation, the patient is stable. I discussed results and treatment plan with him. He verbalizes agreement and understanding. [facility] The patient will be evaluated for further management and care. Medical Decision Prior records/ancillary studies reviewed. Triage Nursing notes reviewed. Additional history obtained from the the patient's significant other. The patient's history was concerning for possible gastrointestinal bleeding. Differential diagnosis: Etiologies such as diverticulosis, AVM, coagulopathy, colitis, inflammatory bowel disease, malignancy, Kristen-Carrillo tear, esophagitis, peptic ulcer disease , variceal bleed, gastritis, epistaxis, fissure, hemorrhoids, as well as others were entertained. The patient is an 82-year-old male who presented to the emergency department for rectal bleeding. The patient had multiple episodes of rectal bleeding. He had multiple polyps removed using a hot snare during a colonoscopy today with his primary devops engineer. The patient was found to have a drop in his hemoglobin. I discussed patient's laboratory and radiographic studies with him. His physical exam was not consistent with an acute surgical abdomen. I discussed his case with his primary devops engineer as well as the on-call [facility] hospitalist. They have agreed to evaluate the patient for further management and disposition. Blood Pressure Screening Patient's blood pressure: Elevated blood pressure Elevated blood pressure will be monitored by hospitalist. Consults Time Called: 2109 Consulting Physician: Dr. Morrow - GastroenterologyKylee Returned Call: 2114 Discussed the patient's case with Dr. Morrow. He suggests talking to the admitting team as he does not have a service. Additional Consults: Time Called: 2114 Consulted Physician: Dr. Christianson - Kylee Jimenez Returned Call: 2119 Additional Comments: I discussed the patient's case with Dr. Christianson. The patient will be evaluated for further management. Impression Primary Impression: Lower GI bleeding Scribe Attestation The scribe's documentation has been prepared under my direction and personally reviewed by me in its entirety. I confirm that the note above accurately reflects all work, treatment, procedures, and medical decision making performed by me. Departure Information Dispostion Being Evaluated By Hospitalist Referrals Rick Rosado M.D.([facility]) (PCP) Patient Instructions My [facility]
[2017-06-27 21:01] LABS: BASO % 0.2 %; BASO ABS # 0.02 K/uL (0-0.2); EOS % 4.7 %; EOS ABS # 0.38 K/uL (0-0.5); HEMATOCRIT 29.8 % (42-52); IG# 0.02 K/uL (0.00-0.02); LYMPH % 9.1 %; LYMPH ABS # 0.74 K/uL (1.2-3.4); MEAN CELL VOLUME 91.1 fL (80-100); MEAN CORPUSCULAR HEMOGLOBIN 30.6 pg (25-34); MEAN CORPUSCULAR HGB CONC 33.6 g/dl (32-36); MEAN PLATELET VOLUME 10.1 fL (7.4-10.4); MONO % 7.5 %; MONO ABS # 0.61 K/uL (0.11-0.59); NEUT % 78.3 %; NEUT ABS # 6.39 K/uL (1.4-6.5); PLATELET COUNT 222 K/uL (130-400); RED CELL DISTRIBUTION WIDTH CV 13.6 % (11.5-14.5); RED CELL DISTRIBUTION WIDTH SD 45.6 fL (36.4-46.3); WHITE BLOOD COUNT 8.16 K/uL (4.8-10.8)
--- NOTE | 2017-06-27 21:01 | DIAGNOSTIC IMAGING REPORT ---
CHEST ONE VIEW PORTABLE HISTORY: Atypical CHEST PAIN COMPARISON: Chest 01/18/2015. FINDINGS: Punctate nodular densities within the right midlung zone remain unchanged. This favors calcified granulomas. The lungs are otherwise clear. No pleural effusions. No pneumothorax. Right shoulder prosthesis. The heart is normal in size. IMPRESSION: No significant change compared to the prior study. No acute process. Electronically signed by: Kameron Rojas M.D. 06/27/2017 9:00 PM Dictated Date/Time: 06/27/2017 8:59 PM
[2017-06-27 21:16] LABS: ALBUMIN 3.2 gm/dl (3.4-5.0); CREATININE 3.19 mg/dl (0.60-1.40); POTASSIUM 3.5 mmol/L (3.5-5.1); TOTAL PROTEIN 6.2 gm/dl (6.4-8.2)
[2017-06-27 21:17] LABS: PTT PATIENT 27.8 SECONDS (21.0-31.0)
[2017-06-27] MEDS ORDERED: SODIUM CHLORIDE 0.9% IV STA (21:36)
[2017-06-27] MEDS ORDERED: DESMOPRESSIN ACETATE IV STA (21:36)
[2017-06-27 23:07] LABS: HEMATOCRIT 27.1 % (42-52); HEMOGLOBIN 9.1 g/dL (14.0-18.0)
[2017-06-27] MEDS ORDERED: EZETIMIBE 10MG TAB PO ONE ×2 (23:28)
[2017-06-27] MEDS ORDERED: ATORVASTATIN 20 MG TAB PO ONE (23:28)
[2017-06-27] MEDS ORDERED: ATORVASTATIN 40 MG TAB PO ONE (23:28)
[2017-06-27] MEDS ORDERED: CARVEDILOL 6.25 MG TAB PO ONE ×2 (23:28)
[2017-06-27] MEDS ORDERED: ZOLPIDEM TARTRATE 10 MG TAB PO PRN ×2 (23:30→23:45)
[2017-06-27] MEDS ORDERED: NITROGLYCERIN 0.4 MG SL PER TAB CHARGE SL PRN ×2 (23:30→23:45)
[2017-06-27] MEDS ORDERED: ACETAMINOPHEN 325 MG TAB PO PRN ×2 (23:30→23:45)
[2017-06-27] MEDS ORDERED: TRAMADOL HCL 50 MG TAB PO PRN ×2 (23:30→23:45)
[2017-06-27] MEDS ORDERED: PROCHLORPERAZINE INJ 5 MG in SYRINGE 4 ML IV PRN ×2 (23:30→23:45)
[2017-06-27] MEDS ORDERED: HYDROmorphone INJ 0.5 MG/0.5 ML SYR IV PRN ×2 (23:30→23:45)
[2017-06-27 23:58] VITALS: BP 168/76; PULSE 64; TEMP 36.5; O2SAT 96
[2017-06-28] VITALS (18 sets, daily range): BP systolic 108–180; BP diastolic 61–82; PULSE 53–82; TEMP 36.4–37; O2SAT 96–100; Ht 167.6 cm; Wt 81.8 kg
[2017-06-28] MEDS ORDERED: ALBUT/IPRATROP 3MG/0.5MG NEB 3 ML VIAL INH STA (00:38)
[2017-06-28] MEDS: VANCOMYCIN HCL 125 MG/2.5ML SOLN PO SCH ×4 (03:43→20:45)
[2017-06-28] MEDS: RASPBERRY SYRUP 5 ML UDP PO SCH ×4 (03:43→20:45)
[2017-06-28] MEDS ORDERED: RANITIDINE HCL 150 MG TAB PO ONE (04:08)
[2017-06-28 04:09] LABS: BASO % 0.1 %; BASO ABS # 0.01 K/uL (0-0.2); EOS ABS # 0.29 K/uL (0-0.5); HEMATOCRIT 23.5 % (42-52); HEMOGLOBIN 7.8 g/dL (14.0-18.0); IG# 0.03 K/uL (0.00-0.02); LYMPH % 11.4 %; LYMPH ABS # 0.82 K/uL (1.2-3.4); MEAN CELL VOLUME 91.1 fL (80-100); MEAN CORPUSCULAR HEMOGLOBIN 30.2 pg (25-34); MEAN CORPUSCULAR HGB CONC 33.2 g/dl (32-36); MONO % 9.3 %; MONO ABS # 0.67 K/uL (0.11-0.59); NEUT % 74.8 %; NEUT ABS # 5.39 K/uL (1.4-6.5); PLATELET COUNT 189 K/uL (130-400); RED CELL DISTRIBUTION WIDTH CV 13.8 % (11.5-14.5); RED CELL DISTRIBUTION WIDTH SD 45.4 fL (36.4-46.3); WHITE BLOOD COUNT 7.21 K/uL (4.8-10.8)
[2017-06-28 04:34] LABS: CALCIUM 7.3 mg/dl (8.5-10.1); CREATININE 3.29 mg/dl (0.60-1.40); POTASSIUM 3.5 mmol/L (3.5-5.1)
[2017-06-28] MEDS: LEVOTHYROXINE 150 MCG TAB PO SCH (06:03)
--- NOTE | 2017-06-28 06:18 | HISTORY & PHYSICAL EXAMINATION ---
DATE OF ADMISSION: 06/27/2017 PRIMARY CARE PHYSICIAN: Dr. Rosado. CHIEF COMPLAINT: Multiple bloody bowel movements HISTORY OF PRESENT ILLNESS: History obtained from patient and records. Medical history significant for CAD status post stenting, history of TIA, hypertension; hyperlipidemia, chronic renal insufficiency (baseline creatinine 3.6), COPD as per records; malignant melanoma status post surgery. chronic anemia (baseline hemoglobin 10-11), past tobacco abuse. Recent confinement last January 2015 for acute cholecystitis status post cholecystectomy. Today, patient underwent colonoscopy outpatient for bowel habit change. Close to 20 polyps in the ascending colon and the cecum were removed with hot snare, resected, retrieved; diverticulosis, nonbleeding internal hemorrhoids likewise noted. Patient told to hold Aggrenox for a few days and to expect a few tablespoons of bloody bowel movement at home. At home multiple loose bloody bowel movements numbering about 10 episodes noted with minimal abdominal discomfort. No fever, no chills, no chest pain, no shortness of breath, no dizziness. Patient brought to the Emergency Room. Before procedure this morning, patient noted cough symptoms productive of white sputum. No flu-like symptoms. Denies aspiration. No chest pain, no shortness of breath. MEDICAL HISTORY: As above. SURGERIES: Knee replacement, cholecystectomy, skin cancer surgery, knee surgery, thyroidectomy, spinal cord lesion removal. HOME MEDICATIONS: Include Ventolin, Zyloprim, ascorbic acid, Lipitor, amlodipine, Coreg, Avodart, Zetia, Flonase, Lasix, levothyroxine, melatonin, Nitrostat, fish oil, Maalox, Zantac, Ambien. ALLERGIES: No known drug allergies. FAMILY HISTORY: Heart disease, emphysema. PERSONAL AND SOCIAL HISTORY: A pack daily. No chronic intake of alcohol. 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 REVIEW OF SYSTEMS: As per HPI, all 10 systems reviewed. All other ROS negative. PHYSICAL EXAMINATION: VITAL SIGNS: Blood pressure noted to be 127/70, pulse rate 70, RR 22, T 37 O2 sats 98 on room air. Orthostatic vitals were positive. SKIN: Pallor, warm. HEENT: Alopecia. Pale palpebral pink conjunctivae. No ptosis. Dry mucosa. Band-Aid noted on the left upper nasolabial area from recent outpatient dermatologic procedure) NECK: Supple, nontender. CHEST: Decreased effort, no tenderness. Occasional wheeze HEART: Regular rate and rhythm. Systolic murmur. ABDOMEN: Some distention, nontender. EXTREMITIES: No edema, no tenderness. No gross deformities NEUROLOGIC: Coherent. No facial asymmetry. No gross focality. LABORATORY DATA: Hemoglobin was noted to be 10, hematocrit 29.8, white blood cells 8.16, platelets noted to be 222. Sodium 140, potassium 3.5, chloride 110, CO2 of 26, BUN 51, creatinine 3.6, glucose 126. LFTs, lipase was normal. Chest x-ray showed no pleural effusion, no pneumothorax. ASSESSMENT: 1. LGIB post colonoscopic polypectomy bleed Rule out C diff. some hemodynamic instability 2. Chronic anemia secondary CKD hemoglobin at the lower end of baseline secondary to ongoing blood loss 3. CAD status post stenting, history of TIA as per records. 4. Hypertension, stable, although patient orthostatic. 5. CRI. Creatinine at baseline. 6. Acute bronchitis, viral vs allergic 7. past tobacco abuse. PLAN: PCU. Follow H&H. Transfuse pRBC to maintain hemoglobin greater than 8. (hx CAD/TIA) Continue to hold home Aggrenox for now. Check stool for C. diff. GI consult. RE LGIB, followup eval. Nebs as needed for bronchitis DVT prophylaxis, SCDs. RE LGIB Full code. Case discussed with Dr. Morrow (GI specialist freight conductor GI). He recommends IV DDAVP administration at the ER for hemostatic effect. MTDD
[2017-06-28] MEDS ORDERED: POTASSIUM CHLORIDE 10 MEQ TABCR PO ONE (06:30)
[2017-06-28] MEDS ORDERED: NURSING VERBAL MED ORDER ONE (07:15)
[2017-06-28] MEDS ORDERED: COUGH DROP (SUGAR FREE) LOZ 24 LOZ/1 BOX LOZ PRN (07:15)
[2017-06-28] MEDS: AVODART~ORDER AWAITING ACTION SCH ×3 (08:00→23:18)
[2017-06-28] MEDS: ALLOPURINOL 100 MG TAB PO SCH (08:26)
[2017-06-28] MEDS ORDERED: ALBUTEROL 0.5% NEB SOLN 2.5 MG/0.5 ML VIAL INH STA (08:28)
[2017-06-28] MEDS ORDERED: LEVOTHYROXINE 150 MCG TAB PO SCH (09:00)
[2017-06-28] MEDS ORDERED: NON-FORMULARY MEDICATION (Dutasteride (Avodart) 0.5 MG) PO SCH (09:00)
[2017-06-28] MEDS ORDERED: RANITIDINE HCL 150 MG TAB PO SCH ×2 (09:00)
[2017-06-28] MEDS ORDERED: AMLODIPINE BESYLATE 5 MG TAB PO SCH ×2 (09:00)
[2017-06-28] MEDS ORDERED: ALLOPURINOL 100 MG TAB PO SCH (09:00)
[2017-06-28] MEDS ORDERED: CARVEDILOL 6.25 MG TAB PO SCH ×2 (09:00)
--- NOTE | 2017-06-28 09:17 | Gastrointestinal Consultation ---
Gastrointestinal Consultation Date of Consultation: June 28, 2017 Attending Physician: Dr. Christianson Consulting Physician: Dr. Morrow Reason for Consultation: Rectal bleeding History of Present Illness Patient is a 82 year old male patient of Dr. Rosado with a hx of COPD, malignant melanoma, HTN, CKD4, chronic anemia. He underwent colonoscopy yesterday with polypectomies. Last night, he experienced a rectal bleeding and presented to the ED. On arrival, Hb 10/Hct 29. This morning Hb 7.8, Hct 23.5. A unit of blood has been ordered to be transfused. He has not had further rectal bleeding since arrival. He was on Aggrenox prior to colonoscopy which has been held since arrival. He is sitting up in a chair at the bedside, awake, alert, oriented and denies abdominal pain, nausea or vomiting. His stool was (+) for C- diff which is interesting as he had constipation prior to undergoing the colonoscopy prep. Past Medical/Surgical History Medical Problems: (1) Gallstones Status: Acute (2) Lower GI bleeding Status: Acute (3) Post herpetic neuralgia Status: Acute (4) RUQ abdominal pain Status: Acute (5) Shingles rash Status: Acute (6) Vertigo Status: Acute (7) Vomiting Status: Acute Past Medical History: 1. COPD 2. HTN 3. Malignant melanoma 4. TIA 5. Hyperlipidemia 6. CKD 4 7. Chronic anemia Past Surgical History: 1. Knee replacement 2. Cholecystectomy 3. Skin cancer surgery 4. Lt knee replacement 5. Thyroidectomy 6. Excision of spinal cord lesion Family History Heart disease Hypertension Social History Smoking Status: Former Smoker Alcohol Use: occasionally Marital Status: Housing Status: lives with family Occupation Status: retired Allergies Coded Allergies: No Known Allergies (Unverified , 06/27/17) Current Medications Home Meds and Scripts Medications Dose Route/Sig Max Daily Dose Days Date Category Dose Instructions Melatonin Maximum Strengt (Melatonin) 5 Mg Tab 1 Tab PO HS 06/22/17 Reported Lipitor (Atorvastatin Calcium) 80 Mg Tab 80 Mg PO HS 06/22/17 Reported Levothyroxine Sodium 150 Mcg Tab 1 Tab PO DAILY 06/22/17 Reported Zetia (Ezetimibe) 10 Mg Tab 10 Mg PO HS 06/22/17 Reported Ambien (Zolpidem Tartrate) 10 Mg Tab 10 Mg PO HS 06/22/17 Reported Miralax (Polyethylene Glycol 3350) 1 Pow Pow 17 Gm PO QAM 06/22/17 Reported Zantac (Ranitidine HCl) 150 Mg Tab 150 Mg PO DAILY 06/22/17 Reported Lasix (Furosemide) 40 Mg Tab 40 Mg PO BID 06/22/17 Reported Fish Oil ([place]-3 Fatty Acids) 1 Cap Cap 1 Cap PO BID 06/26/16 Reported Ventolin Hfa (Albuterol) 200 Puffs/58090 Mcg Aers 2 Puffs INH Q4H PRN 06/26/16 Reported Nitrostat (Nitroglycerin) 0.4 Mg Sub 0.4 Mg UT PRN 06/26/[address] 1 TAB UNDER TONGUE EVERY 5 MINS NEEDED FOR CHEST PAIN. UP TO 3 IN 15 MINS Coreg (Carvedilol) 6.25 Mg Tab 6.25 Mg PO AMHS 08/18/15 Reported Flonase Allergy Relief (Fluticasone Propionate (Nasal)) 50 Mcg/Act Spr 2 Sprays STEFFANIE DAILY PRN 01/16/15 Reported Avodart (Dutasteride) 0.5 Mg Cap 0.5 Mg PO DAILY 01/16/15 Reported Amlodipine Besylate 5 Mg Tab 5 Mg PO BID 06/23/13 Reported Ascorbic Acid 500 Mg Tab 500 Mg PO DAILY 08/18/12 Reported Aggrenox 200MG/25MG (Aspirin-Dipyridamole 25MG/200MG) 1 Cap Cap 1 Capsule PO BID 07/02/12 Reported DO NOT CUT,CRUSH OR CHEW. Zyloprim (Allopurinol) 100 Mg Tab 100 Mg PO QAM 11/07/11 Reported Review of Systems Constitutional: No fever, No chills, No sweats, No weight loss, No weakness Eyes: No eye pain, No redness ENT: No sore throat, No trouble swallowing, No pain on swallowing Respiratory: No cough, No wheezing, No shortness of breath, No dyspnea on exertion Cardiac: No chest pain, No edema, No palpitations Abdomen: + see HPI, + GI bleeding, No nausea, No vomiting Neuro: No memory loss, No weakness, No numbness/tingling, No vertigo, No balance problems Psych: No depression symptoms, No anxiety, No insomnia Heme: No abnormal bleeding/bruising, No night sweats Endo: No excessive thirst, No excessive urination Skin: No rash, No itch, No new/changing skin lesions, No jaundice Physical Exam Date Time Temp Pulse Resp B/P (MAP) Pulse Ox O2 Delivery O2 Flow Rate FiO2 06/28/17 08:43 71 16 100 Room Air 06/28/17 07:45 36.6 61 16 131/71 97 06/28/17 07:20 37.0 59 16 180/64 97 06/28/17 07:19 37.0 59 16 108/64 (79) 97 Room Air 06/28/17 06:45 36.7 57 17 128/77 (94) 97 Room Air 06/28/17 06:09 36.7 80 14 117/61 97 06/28/17 05:30 36.7 57 18 127/67 (87) 97 Room Air 06/28/17 04:00 Room Air 06/28/17 01:00 36.5 64 16 168/76 98 Room Air 06/28/17 00:47 68 16 98 Room Air 06/27/17 23:58 36.5 64 20 168/76 (106) 96 Room Air 06/27/17 23:12 36.7 66 20 124/73 98 06/27/17 22:08 67 176/89 64 181/88 66 124/73 06/27/17 20:45 65 06/27/17 20:44 65 20 172/89 98 Room Air 06/27/17 20:42 97 Room Air 06/27/17 20:18 36.7 70 20 127/75 98 Room Air General Appearance: no apparent distress Eyes: normal inspection, EOMI Neck: supple, no adenopathy, thyroid normal Respiratory/Chest: chest non-tender, lungs clear, normal breath sounds, no accessory muscle use Cardiovascular: regular rate, rhythm, no JVD, no murmur Abdomen: normal bowel sounds, non tender, soft, no organomegaly Extremities: normal inspection, no pedal edema, normal capillary refill Neurologic/Psych: alert, normal mood/affect, oriented x 3 Skin: normal color, no jaundice, warm/dry, no rash Laboratory Results Last 24 Hours Test 06/27/17 20:40 06/27/17 22:59 06/28/17 03:45 White Blood Count 8.16 K/uL 7.21 K/uL Red Blood Count 3.27 M/uL 2.58 M/uL Hemoglobin 10.0 g/dL 9.1 g/dL 7.8 g/dL Hematocrit 29.8 % 27.1 % 23.5 % Mean Corpuscular Volume 91.1 fL 91.1 fL Mean Corpuscular Hemoglobin 30.6 pg 30.2 pg Mean Corpuscular Hemoglobin Concent 33.6 g/dl 33.2 g/dl Platelet Count 222 K/uL 189 K/uL Mean Platelet Volume 10.1 fL 10.0 fL Neutrophils (%) (Auto) 78.3 % 74.8 % Lymphocytes (%) (Auto) 9.1 % 11.4 % Monocytes (%) (Auto) 7.5 % 9.3 % Eosinophils (%) (Auto) 4.7 % 4.0 % Basophils (%) (Auto) 0.2 % 0.1 % Neutrophils # (Auto) 6.39 K/uL 5.39 K/uL Lymphocytes # (Auto) 0.74 K/uL 0.82 K/uL Monocytes # (Auto) 0.61 K/uL 0.67 K/uL Eosinophils # (Auto) 0.38 K/uL 0.29 K/uL Basophils # (Auto) 0.02 K/uL 0.01 K/uL RDW Standard Deviation 45.6 fL 45.4 fL RDW Coefficient of Variation 13.6 % 13.8 % Immature Granulocyte % (Auto) 0.2 % 0.4 % Immature Granulocyte # (Auto) 0.02 K/uL 0.03 K/uL Prothrombin Time 10.8 SECONDS Prothromb Time International Ratio 1.0 Activated Partial Thromboplast Time 27.8 SECONDS Partial Thromboplastin Ratio 1.1 Sodium Level 142 mmol/L 141 mmol/L Potassium Level 3.5 mmol/L 3.5 mmol/L Chloride Level 110 mmol/L 112 mmol/L Carbon Dioxide Level 26 mmol/L 23 mmol/L Anion Gap 6.0 mmol/L 6.0 mmol/L Blood Urea Nitrogen 51 mg/dl 52 mg/dl Creatinine 3.19 mg/dl 3.29 mg/dl Est Creatinine Clear Calc Drug Dose 17.8 ml/min 17.3 ml/min Estimated GFR () 19.9 19.2 Estimated GFR (Non- 17.2 16.5 BUN/Creatinine Ratio 16.1 15.8 Random Glucose 126 mg/dl 117 mg/dl Calcium Level 8.0 mg/dl 7.3 mg/dl Magnesium Level 2.3 mg/dl Total Bilirubin 0.6 mg/dl Direct Bilirubin 0.2 mg/dl Aspartate Amino Transf (AST/SGOT) 20 U/L Alanine Aminotransferase (ALT/SGPT) 20 U/L Alkaline Phosphatase 53 U/L Total Protein 6.2 gm/dl Albumin 3.2 gm/dl Lipase 193 U/L Ovalocytes 1+ Impression Patient is a 82 year old male with a bleeding after 20 polypectomies which seems to have stabilized as he has had one brown BM this morning. His c-diff diarrhea is unexpected as he had constipation prior to the colonoscopy and has formed BMs now. This is likely a colonization. Plan 1. Clear liquids po. 2. Hold Aggrenox x 5 days. 3. If further BM without blood then may advance diet and discharge. 4. Vancomycin 125mg QID x 10 days. Addendum: Pt experienced second brown, formed BM this morning. Will advance diet to regular consistency. I performed a history and physical examination of the patient, including specifically on physical exam there was no tenderness. I have discussed the patient's management with Bull Cruz. Please refer to the JOB BOSS's note for the documented findings and plan of care. Patient has CKD stage 4, on Aggrenox, s/p colonoscopy yesterday for constipation , found with 20 polyps that were resected with hot and cold snare. He had few bloody bowel movements that stopped after arrival to the hospital, he was given a dose of DDAVP. Now has brown stool. C.diff positive, probably colonizer. Advance to regular diet and can discharge home from GI point. Hold Aggrenox for 5 days. Soft diet. PO Vanc for 10 days. Recall if needed.
[2017-06-28 12:28] LABS: HEMATOCRIT 25.4 % (42-52); HEMOGLOBIN 8.6 g/dL (14.0-18.0); MEAN CELL VOLUME 89.8 fL (80-100); MEAN CORPUSCULAR HEMOGLOBIN 30.4 pg (25-34); MEAN PLATELET VOLUME 9.8 fL (7.4-10.4); PLATELET COUNT 182 K/uL (130-400); RED CELL DISTRIBUTION WIDTH CV 14.4 % (11.5-14.5); RED CELL DISTRIBUTION WIDTH SD 47.3 fL (36.4-46.3); WHITE BLOOD COUNT 6.42 K/uL (4.8-10.8)
[2017-06-28 12:35] LABS: MEAN CORPUSCULAR HGB CONC 33.9 g/dl (32-36)
--- NOTE | 2017-06-28 19:06 | Progress Note ---
Progress Note Date of Service June 28, 2017. Progress Note Subjective: Today after initial AM evaluation with Gastroenterology service, patient had bowel movements with blood in stool. Patient has denied abdominal pain or lightheadedness. He agrees with the plan for further monitoring General: no acute distress Heart: rate regular Lungs: CTABL Abdomen: soft, nontender, bowel sounds present Extremities: no edema. Chronic anemia secondary CKD with acute blood loss anemia LGIB post colonoscopic polypectomy bleed s/p 1 PRBC , s/p desmopressin Continue to hold home Aggrenox for now. trending CBC, monitor for blood in bowel movements give IV fluids hold home amlodipine and carvedilol in context of GI bleed to avoid hypotension C diff positive Vancomycin 125mg QID CAD status post stenting, history of TIA as per records -Continue to hold home Aggrenox because of GI bleed -hold home amlodipine and carvedilol in context of GI bleed to avoid hypotension Nebs as needed for bronchitis DVT prophylaxis, SCDs Full code.
[2017-06-28] MEDS: SODIUM CHLORIDE 0.9% 1000ML 1,000 ML IV SCH (19:45)
[2017-06-28] MEDS ORDERED: AMLODIPINE BESYLATE 5 MG TAB PO ONE (20:30)
[2017-06-28] MEDS ORDERED: ATORVASTATIN 20 MG TAB PO SCH (21:00)
[2017-06-28] MEDS ORDERED: EZETIMIBE 10MG TAB PO SCH ×2 (21:00)
[2017-06-28] MEDS ORDERED: ATORVASTATIN 40 MG TAB PO SCH (21:00)
[2017-06-28] MEDS: ALBUT/IPRATROP 3MG/0.5MG NEB 3 ML VIAL INH PRN (21:31)
[2017-06-29] VITALS (12 sets, daily range): BP systolic 142–183; BP diastolic 70–89; PULSE 51–95; TEMP 36.2–36.6; O2SAT 95–98
[2017-06-29] MEDS: VANCOMYCIN HCL 125 MG/2.5ML SOLN PO SCH ×3 (02:26→13:37)
[2017-06-29] MEDS: RASPBERRY SYRUP 5 ML UDP PO SCH ×3 (02:26→13:37)
[2017-06-29] MEDS: SODIUM CHLORIDE 0.9% 1000ML 1,000 ML IV SCH (04:54)
[2017-06-29] MEDS ORDERED: AMLODIPINE BESYLATE 5 MG TAB PO ONE (05:05)
[2017-06-29 05:41] LABS: BASO % 0.4 %; BASO ABS # 0.02 K/uL (0-0.2); EOS % 6.9 %; EOS ABS # 0.38 K/uL (0-0.5); HEMATOCRIT 23.6 % (42-52); HEMOGLOBIN 7.9 g/dL (14.0-18.0); IG# 0.02 K/uL (0.00-0.02); LYMPH ABS # 0.88 K/uL (1.2-3.4); MEAN CELL VOLUME 90.4 fL (80-100); MEAN CORPUSCULAR HEMOGLOBIN 30.3 pg (25-34); MEAN CORPUSCULAR HGB CONC 33.5 g/dl (32-36); MEAN PLATELET VOLUME 9.5 fL (7.4-10.4); MONO % 8.7 %; MONO ABS # 0.48 K/uL (0.11-0.59); NEUT % 67.6 %; NEUT ABS # 3.73 K/uL (1.4-6.5); PLATELET COUNT 164 K/uL (130-400); RED CELL DISTRIBUTION WIDTH CV 14.4 % (11.5-14.5); RED CELL DISTRIBUTION WIDTH SD 47.6 fL (36.4-46.3); WHITE BLOOD COUNT 5.51 K/uL (4.8-10.8)
[2017-06-29] MEDS: LEVOTHYROXINE 150 MCG TAB PO SCH (05:55)
[2017-06-29 06:17] LABS: ALBUMIN 2.6 gm/dl (3.4-5.0); CALCIUM 7.3 mg/dl (8.5-10.1); CREATININE 2.93 mg/dl (0.60-1.40); POTASSIUM 3.9 mmol/L (3.5-5.1); TOTAL PROTEIN 5.4 gm/dl (6.4-8.2)
[2017-06-29] MEDS: AVODART~ORDER AWAITING ACTION SCH ×2 (07:26→15:56)
[2017-06-29] MEDS: ALLOPURINOL 100 MG TAB PO SCH (07:46)
[2017-06-29] MEDS: ALBUT/IPRATROP 3MG/0.5MG NEB 3 ML VIAL INH PRN (08:01)
[2017-06-29] MEDS ORDERED: FUROSEMIDE INJ 40 MG in SYRINGE 0 ML IV ONE (08:30)
[2017-06-29] MEDS ORDERED: AMLODIPINE BESYLATE 5 MG TAB PO SCH (09:00)
[2017-06-29] MEDS ORDERED: RANITIDINE HCL 150 MG TAB PO SCH (09:00)
[2017-06-29] MEDS ORDERED: CARVEDILOL 6.25 MG TAB PO SCH (09:00)
--- NOTE | 2017-06-29 10:16 | Gastroenterology Progress Note ---
Progress Note Date of Service: June 29, 2017 Subjective Pt evaluation today including: conversation w/ patient, physical exam, chart review, lab review, review of studies, review of inpatient medication list Mr. Anderson is an 82 yr old male who experienced a post polypectomy bleed. Colonoscopy with removal of about 15 polyps on 06/26. HbHct on arrival on 06/27 was 7.8/23.5, received one unit of RBC, Hb today 7.9/23.6. Yesterday 2 brown BMs early then one bloody BM though less than previous bleed at home. This morning 2 BMs, one with blood tinged brown loose feces. Pt feels well. Hypertensive - primary services is adjusted meds. C-diff (+) but had constipation prior to colonoscopy. Review of Systems Constitutional: No fever Respiratory: + problem reported (mucous in throat), No cough Cardiac: No chest pain Abdomen: + diarrhea, No pain, No nausea, No vomiting Male : No dysuria Neuro: No memory loss Psych: No depression symptoms Heme: No abnormal bleeding/bruising Endo: No fatigue Skin: No rash Medications Current Inpatient Medications Medications (Trade) Dose Ordered Sig/Ivan Route Start Time Stop Time Status Last Admin Dose Admin Miscellaneous Information (Order Awaiting Action) 1 ea QS N/A 06/28/17 08:00 07/28/17 07:59 Prochlorperazine Edisylate 5 mg/ Syringe 5 ml @ 5 mls/min Q6H PRN IV 06/27/17 23:45 07/27/17 23:29 Acetaminophen (Tylenol Tab) 650 mg Q4H PRN PO 06/27/17 23:45 07/27/17 23:29 Nitroglycerin (Nitrostat Tab) 0.4 mg UD PRN SL 06/27/17 23:45 07/27/17 23:29 Allopurinol (Zyloprim Tab) 100 mg QAM PO 06/28/17 09:00 07/28/17 08:59 06/29/17 07:46 100 MG Atorvastatin Calcium (Lipitor Tab) 80 mg HS PO 06/28/17 21:00 07/28/17 20:59 06/28/17 20:45 80 MG EZETIMIBE (Zetia Tab) 10 mg HS PO 06/28/17 21:00 07/28/17 20:59 06/28/17 20:45 10 MG Levothyroxine Sodium (Synthroid Tab) 150 mcg DAILYBB PO 06/28/17 06:30 07/28/17 06:29 06/29/17 05:55 150 MCG Zolpidem Tartrate (Ambien Tab) 10 mg HS PRN PO 06/27/17 23:45 07/27/17 23:29 06/28/17 21:44 10 MG Tramadol HCl (Ultram Tab) not relieved by tylenol @ Q6H PRN PO 06/27/17 23:45 07/27/17 23:29 Hydromorphone HCl (Dilaudid Inj) 0.5 mg Q3H PRN IV 06/27/17 23:45 07/11/17 23:29 Albuterol/ Ipratropium (Duoneb) 3 ml Q2H PRN INH 06/28/17 00:30 07/28/17 00:29 06/29/17 08:01 3 ML Vancomycin HCl (Vancomycin Oral Soln) 125 mg Q6H PO 06/28/17 02:30 07/12/17 02:29 06/29/17 07:45 125 MG Raspberry (Raspberry Syrup 5ml Cup) 5 ml Q6H PO 06/28/17 02:30 07/12/17 02:29 06/29/17 07:45 5 ML Ranitidine HCl (zANTac TAB) 150 mg DAILY PO 06/29/17 09:00 07/28/17 08:59 06/29/17 07:46 150 MG Menthol (Nice Mirna) 1 mirna PRN PRN MIRNA 06/28/17 07:15 07/28/17 07:14 Amlodipine Besylate (Norvasc Tab) 5 mg QAM PO 06/30/17 09:00 07/29/17 08:59 Carvedilol (Coreg Tab) 6.25 mg DAILY PO 06/29/17 09:00 07/29/17 08:59 06/29/17 09:34 6.25 MG Objective Vital Signs Date Time Temp Pulse Resp B/P (MAP) Pulse Ox O2 Delivery O2 Flow Rate FiO2 06/29/17 09:30 36.3 55 18 160/83 96 06/29/17 09:00 36.2 68 18 142/73 95 06/29/17 08:30 36.2 69 18 171/79 96 06/29/17 08:17 36.6 58 18 181/76 96 06/29/17 08:02 67 16 98 Room Air 06/29/17 07:57 36.6 66 18 175/88 06/29/17 07:18 36.3 67 20 183/70 (107) 97 Room Air 06/29/17 04:45 36.6 95 16 181/89 (119) 95 Room Air 06/29/17 04:00 Room Air 06/29/17 00:15 Room Air 06/28/17 23:57 36.5 62 18 149/74 (99) 96 Room Air 06/28/17 22:04 36.4 63 18 163/77 (105) 97 Room Air 06/28/17 21:35 82 16 97 Room Air 06/28/17 20:31 36.7 60 18 177/82 (113) 98 Room Air 06/28/17 20:00 Room Air 06/28/17 16:07 36.5 59 18 136/80 (98) 99 Room Air 06/28/17 16:00 98 Room Air 06/28/17 12:00 98 Room Air 06/28/17 11:18 36.7 53 16 128/77 (94) 98 Room Air Physical Exam General Appearance: no apparent distress ENT: pharynx normal Neck: no JVD Respiratory/Chest: chest non-tender, + rhonchi (clear with cough, no crackles or wheezes) Cardiovascular: regular rate, rhythm, no murmur Abdomen: non tender, soft Extremities: + pedal edema (slight) Neurologic/Psych: alert, normal mood/affect, oriented x 3 Skin: no jaundice Laboratory Results Last 24 Hours Test 06/28/17 12:11 06/28/17 17:51 06/29/17 05:14 White Blood Count 6.42 K/uL 5.51 K/uL Red Blood Count 2.83 M/uL 2.61 M/uL Hemoglobin 8.6 g/dL 8.0 g/dL 7.9 g/dL Hematocrit 25.4 % 24.0 % 23.6 % Mean Corpuscular Volume 89.8 fL 90.4 fL Mean Corpuscular Hemoglobin 30.4 pg 30.3 pg Mean Corpuscular Hemoglobin Concent 33.9 g/dl 33.5 g/dl RDW Standard Deviation 47.3 fL 47.6 fL RDW Coefficient of Variation 14.4 % 14.4 % Platelet Count 182 K/uL 164 K/uL Mean Platelet Volume 9.8 fL 9.5 fL Neutrophils (%) (Auto) 67.6 % Lymphocytes (%) (Auto) 16.0 % Monocytes (%) (Auto) 8.7 % Eosinophils (%) (Auto) 6.9 % Basophils (%) (Auto) 0.4 % Neutrophils # (Auto) 3.73 K/uL Lymphocytes # (Auto) 0.88 K/uL Monocytes # (Auto) 0.48 K/uL Eosinophils # (Auto) 0.38 K/uL Basophils # (Auto) 0.02 K/uL Immature Granulocyte % (Auto) 0.4 % Immature Granulocyte # (Auto) 0.02 K/uL Ovalocytes 1+ Sodium Level 141 mmol/L Potassium Level 3.9 mmol/L Chloride Level 113 mmol/L Carbon Dioxide Level 24 mmol/L Anion Gap 4.0 mmol/L Blood Urea Nitrogen 45 mg/dl Creatinine 2.93 mg/dl Est Creatinine Clear Calc Drug Dose 19.5 ml/min Estimated GFR () 22.0 Estimated GFR (Non- 19.0 BUN/Creatinine Ratio 15.3 Random Glucose 100 mg/dl Calcium Level 7.3 mg/dl Magnesium Level 2.2 mg/dl Total Bilirubin 0.7 mg/dl Aspartate Amino Transf (AST/SGOT) 15 U/L Alanine Aminotransferase (ALT/SGPT) 15 U/L Alkaline Phosphatase 42 U/L Total Protein 5.4 gm/dl Albumin 2.6 gm/dl Globulin 2.8 gm/dl Albumin/Globulin Ratio 0.9 Assessment and Plan is an 82 yr old who experienced a post polypectomy bleed, now hemodynamically stable with minimal further bleeding. Plan: 1. Advance diet to regular consistency. 2. Do not restart Aggrenox until 5 days after the colonoscopy (07/01). I performed a history and physical examination of the patient, including specifically on history said he moved his bowel this afternoon with no bleeding. I have discussed the patient's management with Bull Cruz. Please refer to the INTERNAL MEDICINE PHYSICIAN's note for the documented findings and plan of care. Self limited post polypectomy bleed. No ongoing bleeding now and H/H going up with transfusion. Resume Aggrenox in 5 days. Avoid NSAIDs. Control HTN. Recall GI if needed.
--- NOTE | 2017-06-29 10:21 | Clinical Documentation Query ---
CLINICAL DOCUMENTATION QUERY 82 year old male who takes Aggrenox presents to the Emergency Room with complaints of persistent rectal bleeding after colonoscopy. The EMR reflects this patient as having a post polypectomy bleed. As documented this is coded as a complication of care. In your clinical opinion is this patient being managed for: ( x ) "Incidental post polypectomy bleed in setting of Aggrenox therapy" (NOT a complication of care) ( ) Post polypectomy bleed (A complication of care) ( ) Not Agree ( ) Other explanation of clinical findings (No explanation is considered a No Response) ( ) Unable to determine ( ) Need to Discuss (Phone CDS or qliq) (No discussion is considered a No Response) The medical record reflects the following clinical findings, treatment, and risk factors. Clinical Indicators: Aggrenox therapy, anemia, GI bleeding Treatment: hold Aggrenox, IV DDAVP, 2 units of PRBC's Risk Factors: Aggrenox therapy Please clarify and document your clinical opinion in the progress notes and discharge summary. Terms such as "probable", "suspected", "likely", "questionable", "possible", or "still to be ruled out" are acceptable. IF IN AGREEMENT, YOU MUST DOCUMENT ABOVE DIAGNOSTIC STATEMENT IN DAILY PROGRESS NOTES AND DISCHARGE SUMMARY. This document is not part of the patient's record. Thank You, Dony James RN [phone] & via [email or web address]
[2017-06-29 15:21] LABS: HEMOGLOBIN 9.1 g/dL (14.0-18.0); MEAN CELL VOLUME 89.4 fL (80-100); MEAN CORPUSCULAR HEMOGLOBIN 30.1 pg (25-34); MEAN CORPUSCULAR HGB CONC 33.7 g/dl (32-36); MEAN PLATELET VOLUME 9.6 fL (7.4-10.4); PLATELET COUNT 155 K/uL (130-400); RED CELL DISTRIBUTION WIDTH CV 14.9 % (11.5-14.5); RED CELL DISTRIBUTION WIDTH SD 48.5 fL (36.4-46.3); WHITE BLOOD COUNT 6.42 K/uL (4.8-10.8)
--- NOTE | 2017-06-29 16:17 | Progress Note ---
Internal Med Progress Note Date of Service: June 29, 2017. Provider Documentation: Subjective: Patient received 1 unit of PRBC today. Patient did not have further episodes of blood in the stool like yesterday. Patient denies abdominal pain Physical Exam General: no acute distress Heart: rate regular Lungs: CTABL Abdomen: soft, nontender, bowel sounds present Extremities: no edema. ASSESSMENT & PLAN: Hospital Course and Discharge Plans 82 yr old male who experienced a post polypectomy bleed. Colonoscopy with removal of about 15 polyps on 06/26/17 Chronic anemia secondary CKD with acute blood loss anemia due to post colonoscopic polypectomy bleed in the context of Aggrenox use s/p 2 PRBC , s/p desmopressin on this admission C diff positive Vancomycin 125mg QID was started on 06/28/17. Prescriptions to be given to finish a total 10 day course CAD status post stenting, history of TIA as per records -Do not restart Aggrenox until 5 days after the colonoscopy date 06/26/17 so patient can resume Aggrenox on 07/01/17 -Resume home dose Lasix Hypertension resume home medications for hypertension Hypothyroidism continue home dose Levothyroxine possible bronchitis symptoms - follow up with primary care doctor Discharge Instructions Do not restart Aggrenox until 5 days after the colonoscopy date 06/26/17 so patient can resume Aggrenox on 07/01/17 Follow up on 07/02/2017 1:10 PM Rick Rosado MD Family Practice [facility] 07/03/2017 9:00 AM Dougie Morrow MD Gastroenterology, [facility] Vital Signs: Date Time Temp Pulse Resp B/P (MAP) Pulse Ox O2 Delivery O2 Flow Rate FiO2 06/29/17 15:41 36.6 58 18 173/89 (117) 96 Room Air 06/29/17 12:21 36.5 53 18 153/75 (101) 96 Room Air 06/29/17 12:00 Room Air 06/29/17 10:37 36.6 51 18 162/78 97 06/29/17 09:30 36.3 55 18 160/83 96 06/29/17 09:00 36.2 68 18 142/73 95 06/29/17 08:30 36.2 69 18 171/79 96 06/29/17 08:17 36.6 58 18 181/76 96 06/29/17 08:02 67 16 98 Room Air 06/29/17 08:00 Room Air 06/29/17 07:57 36.6 66 18 175/88 06/29/17 07:18 36.3 67 20 183/70 (107) 97 Room Air 06/29/17 04:45 36.6 95 16 181/89 (119) 95 Room Air 06/29/17 04:00 Room Air 06/29/17 00:15 Room Air 06/28/17 23:57 36.5 62 18 149/74 (99) 96 Room Air 06/28/17 22:04 36.4 63 18 163/77 (105) 97 Room Air 06/28/17 21:35 82 16 97 Room Air 06/28/17 20:31 36.7 60 18 177/82 (113) 98 Room Air 06/28/17 20:00 Room Air Lab Results: Results Past 24 Hours Test 06/28/17 17:51 06/29/17 05:14 06/29/17 14:55 Range/Units Hemoglobin 8.0 7.9 9.1 14.0-18.0 g/dL Hematocrit 24.0 23.6 27.0 42-52 % White Blood Count 5.51 6.42 4.8-10.8 K/uL Red Blood Count 2.61 3.02 4.7-6.1 M/uL Mean Corpuscular Volume 90.4 89.4 80-100 fL Mean Corpuscular Hemoglobin 30.3 30.1 25-34 pg Mean Corpuscular Hemoglobin Concent 33.5 33.7 32-36 g/dl Platelet Count 164 155 130-400 K/uL Mean Platelet Volume 9.5 9.6 7.4-10.4 fL Neutrophils (%) (Auto) 67.6 % Lymphocytes (%) (Auto) 16.0 % Monocytes (%) (Auto) 8.7 % Eosinophils (%) (Auto) 6.9 % Basophils (%) (Auto) 0.4 % Neutrophils # (Auto) 3.73 1.4-6.5 K/uL Lymphocytes # (Auto) 0.88 1.2-3.4 K/uL Monocytes # (Auto) 0.48 0.11-0.59 K/uL Eosinophils # (Auto) 0.38 0-0.5 K/uL Basophils # (Auto) 0.02 0-0.2 K/uL RDW Standard Deviation 47.6 48.5 36.4-46.3 fL RDW Coefficient of Variation 14.4 14.9 11.5-14.5 % Immature Granulocyte % (Auto) 0.4 % Immature Granulocyte # (Auto) 0.02 0.00-0.02 K/uL Ovalocytes 1+ Sodium Level 141 136-145 mmol/L Potassium Level 3.9 3.5-5.1 mmol/L Chloride Level 113 98-107 mmol/L Carbon Dioxide Level 24 21-32 mmol/L Anion Gap 4.0 3-11 mmol/L Blood Urea Nitrogen 45 7-18 mg/dl Creatinine 2.93 0.60-1.40 mg/dl Est Creatinine Clear Calc Drug Dose 19.5 ml/min Estimated GFR () 22.0 Estimated GFR (Non- 19.0 BUN/Creatinine Ratio 15.3 10-20 Random Glucose 100 70-99 mg/dl Calcium Level 7.3 8.5-10.1 mg/dl Magnesium Level 2.2 1.8-2.4 mg/dl Total Bilirubin 0.7 0.2-1 mg/dl Aspartate Amino Transf (AST/SGOT) 15 15-37 U/L Alanine Aminotransferase (ALT/SGPT) 15 12-78 U/L Alkaline Phosphatase 42 45-117 U/L Total Protein 5.4 6.4-8.2 gm/dl Albumin 2.6 3.4-5.0 gm/dl Globulin 2.8 2.5-4.0 gm/dl Albumin/Globulin Ratio 0.9 0.9-2
[2017-06-29] MEDS ORDERED: VANC5CAP OR ×2 (16:28)
--- NOTE | 2017-06-29 16:33 | Discharge Instructions ---
Discharge Instructions Date of Service June 29, 2017. Admission Reason for Admission: Lgi Bleed Discharge Discharge Diagnosis / Problem: acute blood loss anemia due to post colonoscopic polypectomy bleed Discharge Goals Goal(s): Improve disease control Activity Recommendations Activity Limitations: per Instructions/Follow-up section Shower/Bathe: no limitations . Instructions / Follow-Up Instructions / Follow-Up Hospital Course and Discharge Plans 82 yr old male who experienced a post polypectomy bleed. Colonoscopy with removal of about 15 polyps on 06/26/17 Chronic anemia secondary CKD with acute blood loss anemia due to post colonoscopic polypectomy bleed in the context of Aggrenox use s/p 2 PRBC , s/p desmopressin on this admission C diff positive Vancomycin 125mg QID was started on 06/28/17. Prescriptions to be given to finish a total 10 day course CAD status post stenting, history of TIA as per records -Do not restart Aggrenox until 5 days after the colonoscopy date 06/26/17 so patient can resume Aggrenox on 07/01/17 -Resume home dose Lasix Hypertension resume home medications for hypertension Hypothyroidism continue home dose Levothyroxine possible bronchitis symptoms - follow up with primary care doctor Discharge Instructions Do not restart Aggrenox until 5 days after the colonoscopy date 06/26/17 so patient can resume Aggrenox on 07/01/17 Follow up on 07/02/2017 1:10 PM Rick Rosado MD Family Practice [facility] 07/03/2017 9:00 AM Dougie Morrow MD Gastroenterology, [facility] Current Hospital Diet Patient's current hospital diet: AHA Diet (Heart Healthy) Discharge Diet Recommended Diet: AHA Diet (Heart Healthy) Pending Studies Studies pending at discharge: no Laboratory Results 06/29/17 14:55 06/29/17 05:14 Test 06/27/17 20:40 06/29/17 05:14 06/29/17 14:55 Prothrombin Time 10.8 SECONDS (9.0-12.0) Prothromb Time International Ratio 1.0 (0.9-1.1) Activated Partial Thromboplast Time 27.8 SECONDS (21.0-31.0) Partial Thromboplastin Ratio 1.1 Direct Bilirubin 0.2 mg/dl (0-0.2) Lipase 193 U/L (73-393) Immature Granulocyte % (Auto) 0.4 % White Blood Count 5.51 K/uL (4.8-10.8) Red Blood Count 2.61 M/uL (4.7-6.1) 3.02 M/uL (4.7-6.1) Hemoglobin 7.9 g/dL (14.0-18.0) Hematocrit 23.6 % (42-52) Mean Corpuscular Volume 90.4 fL (80-100) 89.4 fL (80-100) Mean Corpuscular Hemoglobin 30.3 pg (25-34) 30.1 pg (25-34) Mean Corpuscular Hemoglobin Concent 33.5 g/dl (32-36) 33.7 g/dl (32-36) Platelet Count 164 K/uL (130-400) Mean Platelet Volume 9.5 fL (7.4-10.4) 9.6 fL (7.4-10.4) Neutrophils (%) (Auto) 67.6 % Lymphocytes (%) (Auto) 16.0 % Monocytes (%) (Auto) 8.7 % Eosinophils (%) (Auto) 6.9 % Basophils (%) (Auto) 0.4 % Neutrophils # (Auto) 3.73 K/uL (1.4-6.5) Lymphocytes # (Auto) 0.88 K/uL (1.2-3.4) Monocytes # (Auto) 0.48 K/uL (0.11-0.59) Eosinophils # (Auto) 0.38 K/uL (0-0.5) Basophils # (Auto) 0.02 K/uL (0-0.2) Immature Granulocyte # (Auto) 0.02 K/uL (0.00-0.02) Ovalocytes 1+ Anion Gap 4.0 mmol/L (3-11) Est Creatinine Clear Calc Drug Dose 19.5 ml/min Estimated GFR () 22.0 Estimated GFR (Non- 19.0 BUN/Creatinine Ratio 15.3 (10-20) Calcium Level 7.3 mg/dl (8.5-10.1) Magnesium Level 2.2 mg/dl (1.8-2.4) Total Bilirubin 0.7 mg/dl (0.2-1) Aspartate Amino Transf (AST/SGOT) 15 U/L (15-37) Alanine Aminotransferase (ALT/SGPT) 15 U/L (12-78) Alkaline Phosphatase 42 U/L (45-117) Total Protein 5.4 gm/dl (6.4-8.2) Albumin 2.6 gm/dl (3.4-5.0) Globulin 2.8 gm/dl (2.5-4.0) Albumin/Globulin Ratio 0.9 (0.9-2) RDW Standard Deviation 48.5 fL (36.4-46.3) RDW Coefficient of Variation 14.9 % (11.5-14.5) Date/Time Source Procedure Growth Status 06/28/17 00:15 Stool C.difficile Toxin B Gene (PCR) - Final Positive for C. difficile toxin B gene Complete Medical Emergencies . Who to Call and When: Medical Emergencies: If at any time you feel your situation is an emergency, please call 911 immediately. . Non-Emergent Contact Non-Emergency issues call your: Primary Care Provider, Benefits Processor Call Non-Emergent contact if: you have any medication questions . . "Provider Documentation" section prepared by Alex Reagan. .
--- NOTE | 2017-06-29 16:39 | Discharge Summary ---
Discharge Summary Date of Service June 29, 2017. 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, Hypertension Medication Reconciliation New Medications: Vancomycin Hcl (Vancomycin) 125 Mg Cap 1 CAP OR QID for 9 Days, #36 CAP Continued Medications: Albuterol Hfa (Ventolin Hfa) 200 Puffs/88875 Mcg Aers 2 PUFFS INH Q4H PRN for Wheezing, #1 INHALER Allopurinol (Zyloprim) 100 Mg Tab 100 MG PO QAM, TAB Amlodipine Besylate (Amlodipine Besylate) 5 Mg Tab 5 MG PO BID Ascorbic Acid (Ascorbic Acid) 500 Mg Tab 500 MG PO DAILY, TAB Atorvastatin (Lipitor) 80 Mg Tab 80 MG PO HS, TAB Carvedilol (Coreg) 6.25 Mg Tab 6.25 MG PO AMHS, TAB Dutasteride (Avodart) 0.5 Mg Cap 0.5 MG PO DAILY, CAP Ezetimibe (Zetia) 10 Mg Tab 10 MG PO HS, TAB Fluticasone Propionate (Nasal) (Flonase Allergy Relief) 50 Mcg/Act Spr 2 SPRAYS STEFFANIE DAILY PRN for CONGESTION Furosemide (Lasix) 40 Mg Tab 40 MG PO BID, TAB Levothyroxine Sodium (Levothyroxine Sodium) 150 Mcg Tab 1 TAB PO DAILY, TAB 3 Refills Melatonin (Melatonin Maximum Strengt) 5 Mg Tab 1 TAB PO HS, TAB 1 Refill Nitroglycerin (Nitrostat) 0.4 Mg Sub 0.4 MG UT PRN, BTL PLACE 1 TAB UNDER TONGUE EVERY 5 MINS NEEDED FOR CHEST PAIN. UP TO 3 IN 15 MINS [place]-3 Fatty Acids (Fish Oil) 1 Cap Cap 1 CAP PO BID Polyethylene Glycol 3350 (Miralax) 1 Pow Pow 17 GM PO QAM, GM Ranitidine (Zantac) 150 Mg Tab 150 MG PO DAILY, TAB Zolpidem Tartrate (Ambien) 10 Mg Tab 10 MG PO HS, TAB Discontinued Medications: Aspirin-Dipyridamole 25MG/200MG (Aggrenox 200MG/25MG) 1 Cap Cap 1 CAPSULE PO BID, CAP DO NOT CUT,CRUSH OR CHEW. Admission Information HPI (per Admitting provider): CHIEF COMPLAINT: Multiple bloody bowel movements HISTORY OF PRESENT ILLNESS: History obtained from patient and records. Medical history significant for CAD status post stenting, history of TIA, hypertension; hyperlipidemia, chronic renal insufficiency (baseline creatinine 3.6), COPD as per records; malignant melanoma status post surgery. chronic anemia (baseline hemoglobin 10-11), past tobacco abuse. Recent confinement last January 2015 for acute cholecystitis status post cholecystectomy. Today, patient underwent colonoscopy outpatient for bowel habit change. Close to 20 polyps in the ascending colon and the cecum were removed with hot snare, resected, retrieved; diverticulosis, nonbleeding internal hemorrhoids likewise noted. Patient told to hold Aggrenox for a few days and to expect a few tablespoons of bloody bowel movement at home. At home multiple loose bloody bowel movements numbering about 10 episodes noted with minimal abdominal discomfort. No fever, no chills, no chest pain, no shortness of breath, no dizziness. Patient brought to the Emergency Room. Before procedure this morning, patient noted cough symptoms productive of white sputum. No flu-like symptoms. Denies aspiration. No chest pain, no shortness of breath. MEDICAL HISTORY: As above. SURGERIES: Knee replacement, cholecystectomy, skin cancer surgery, knee surgery, thyroidectomy, spinal cord lesion removal. HOME MEDICATIONS: Include Ventolin, Zyloprim, ascorbic acid, Lipitor, amlodipine, Coreg, Avodart, Zetia, Flonase, Lasix, levothyroxine, melatonin, Nitrostat, fish oil, Maalox, Zantac, Ambien. ALLERGIES: No known drug allergies. FAMILY HISTORY: Heart disease, emphysema. PERSONAL AND SOCIAL HISTORY: A pack daily. No chronic intake of alcohol. 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 REVIEW OF SYSTEMS: As per HPI, all 10 systems reviewed. All other ROS negative. Physical Exam (per Admitting): PHYSICAL EXAMINATION: VITAL SIGNS: Blood pressure noted to be 127/70, pulse rate 70, RR 22, T 37 O2 sats 98 on room air. Orthostatic vitals were positive. SKIN: Pallor, warm. HEENT: Alopecia. Pale palpebral pink conjunctivae. No ptosis. Dry mucosa. Band-Aid noted on the left upper nasolabial area from recent outpatient dermatologic procedure) NECK: Supple, nontender. CHEST: Decreased effort, no tenderness. Occasional wheeze HEART: Regular rate and rhythm. Systolic murmur. ABDOMEN: Some distention, nontender. EXTREMITIES: No edema, no tenderness. No gross deformities NEUROLOGIC: Coherent. No facial asymmetry. No gross focality. Hospital Course Hospital Course and Discharge Plans 82 yr old male who experienced a post polypectomy bleed. Colonoscopy with removal of about 15 polyps on 06/26/17 Chronic anemia secondary CKD with acute blood loss anemia due to post colonoscopic polypectomy bleed in the context of Aggrenox use s/p 2 PRBC , s/p desmopressin on this admission C diff positive Vancomycin 125mg QID was started on 06/28/17. Prescriptions to be given to finish a total 10 day course CAD status post stenting, history of TIA as per records -Do not restart Aggrenox until 5 days after the colonoscopy date 06/26/17 so patient can resume Aggrenox on 07/01/17 -Resume home dose Lasix Hypertension resume home medications for hypertension Hypothyroidism continue home dose Levothyroxine possible bronchitis symptoms - follow up with primary care doctor Discharge Instructions Do not restart Aggrenox until 5 days after the colonoscopy date 06/26/17 so patient can resume Aggrenox on 07/01/17 Follow up on 07/02/2017 1:10 PM Rick Rosado MD Family Practice [facility] 07/03/2017 9:00 AM Dougie Morrow MD Gastroenterology, [facility] Total time spent on discharge = 40 minutes This includes examination of the patient, discharge planning, medication reconciliation, and communication with other providers. Discharge Instructions see above
[2017-06-30] MEDS ORDERED: AMLODIPINE BESYLATE 5 MG TAB PO SCH (09:00)
== END 2017-06-29 16:45 | disposition home or self-care (01) | DRG 813 ==
LOC: C.EDB 20:17 → UNDOADMIN 22:49 → C.MED 22:49 → ENRESERV 22:58 → C.EDC 23:00 → C.MED 06-28 02:55
PROVIDERS: ADMIT Hospitalist; ATTEND Hospitalist
DX: D68.32 Hemorrhagic disorder due to extrinsic circulating anticoagulants (principal); K91.840 Postprocedural hemorrhage of a digestive system organ or structure following a digestive system procedure; N18.4 Chronic kidney disease, stage 4 (severe); A04.71 Enterocolitis due to Clostridium difficile, recurrent; D62 Acute posthemorrhagic anemia; J44.0 Chronic obstructive pulmonary disease with (acute) lower respiratory infection; I25.10 Atherosclerotic heart disease of native coronary artery without angina pectoris; E11.9 Type 2 diabetes mellitus without complications; M10.9 Gout, unspecified; E78.5 Hyperlipidemia, unspecified; N40.1 Benign prostatic hyperplasia with lower urinary tract symptoms; E03.9 Hypothyroidism, unspecified; I12.9 Hypertensive chronic kidney disease with stage 1 through stage 4 chronic kidney disease, or unspecified chronic kidney disease; E78.00 Pure hypercholesterolemia, unspecified; D63.1 Anemia in chronic kidney disease; J20.9 Acute bronchitis, unspecified; Z85.820 Personal history of malignant melanoma of skin; Z90.49 Acquired absence of other specified parts of digestive tract; Z96.652 Presence of left artificial knee joint; Z87.891 Personal history of nicotine dependence; Z86.73 Personal history of transient ischemic attack (TIA), and cerebral infarction without residual deficits; Z82.49 Family history of ischemic heart disease and other diseases of the circulatory system

== ENCOUNTER → 2017-06-27 | Day surgery (SDC) | payer BC ==
[2017-06-22 10:20] VITALS: BMI 29.0
[~2017-06-27] VITALS: Ht 165.1 cm; Wt 79.5 kg
[~2017-06-27] MED LIST changes: +ALBUT/IPRATROP 3MG/0.5MG NEB 3 ML VIAL INH STA; -ATROPINE SULFATE 0.1 MG/ML 5ML SYR ONE; -DOBUTamine HCL 12.5 MG/ML 20 ML VIAL ONE; +EpHEDrine SULFATE 50MG/5ML SYR ONE; -FLVHFA110 INH; +FRS/40 PO; -FURO-85 PO; -FURO40TA3 PO; -GUAI1TAB75 PO; +LIDOCAINE HCL 2% 2 ML VIAL (20MG/ML) ONE; +MELATAB2 PO; -METOPROLOL TARTRATE 1 MG/ML VIAL ONE; -MULTTAB58 PO; -NRN/300 PO; -OMEP20CA59 PO; -PERFLUTREN LIPID MICROSPHERE (DEFINITY) IV ONE; +POLY335019 PO; +PROPOFOL IV EMULSION 10 MG/ML 20 ML VIAL ONE; +RANI150T85 PO; +SODIUM CHLORIDE 0.9% 500ML 500 ML IV ONE; -TRAM-10 PO; -UMEC1AER INH; +VANC5CAP OR; +ZOLP10TA PO; -ZOLP10TA6 PO
--- NOTE | 2017-06-27 10:57 | Endo History and Physical ---
History & Physical Date of Service: June 27, 2017. Chief Complaint: Referring Physician: History of Present Illness Constipation and altered bowel habit Past Medical History Diabetes, Endocrine Disorder, Gastrointestinal Disorder, Reflux, High Cholesterol, Hypertension, COPD, Kidney Disease, CVA/TIA Past Surgical History Hx Cardiac Surgery: Yes (HEART CATH-2 STENTS ) Hx Internal Defibrillator: No Hx Pacemaker: No Hx Abdominal Surgery: Yes (SINDY) Hx of Implantable Prosthesis: No Hx Post-Op Nausea and Vomiting: No Hx Cancer Surgery: Yes (SKIN CANCER REMOVAL) Hx Thoracic Surgery: No Hx Orthopedic: Yes (LEFT TKA, ELBOW SURGERY (?SIDE)) Hx Urinary Tract Surgery: No Family History None Social History Smoking Status: Former Smoker Hx Substance Use: No Hx Alcohol Use: Yes (1 DRINK DAILY) Allergies Coded Allergies: NO KNOWN DRUG ALLERGIES (Verified Allergy, Unknown, ., 06/22/17) Current Medications Reported Home Medications Medications Dose Route/Sig Max Daily Dose Days Date Category Dose Instructions Melatonin Maximum Strengt (Melatonin) 5 Mg Tab 1 Tab PO HS 06/22/17 Reported Lipitor (Atorvastatin Calcium) 80 Mg Tab 80 Mg PO DAILY 06/22/17 Reported Levothyroxine Sodium 150 Mcg Tab 1 Tab PO DAILY 06/22/17 Reported Zetia (Ezetimibe) 10 Mg Tab 10 Mg PO DAILY 06/22/17 Reported Ambien (Zolpidem Tartrate) 10 Mg Tab 10 Mg PO HS 06/22/17 Reported Miralax (Polyethylene Glycol 3350) 1 Pow Pow 17 Gm PO QAM 06/22/17 Reported Zantac (Ranitidine HCl) 150 Mg Tab 150 Mg PO DAILY 06/22/17 Reported Lasix (Furosemide) 40 Mg Tab 40 Mg PO BID 06/22/17 Reported Fish Oil ([place]-3 Fatty Acids) 1 Cap Cap 1 Cap PO BID 06/26/16 Reported Ventolin Hfa (Albuterol) 200 Puffs/32267 Mcg Aers 2 Puffs INH Q4H PRN 06/26/16 Reported Nitrostat (Nitroglycerin) 0.4 Mg Sub 0.4 Mg UT PRN 06/26/[address] 1 TAB UNDER TONGUE EVERY 5 MINS NEEDED FOR CHEST PAIN. UP TO 3 IN 15 MINS Coreg (Carvedilol) 6.25 Mg Tab 6.25 Mg PO BID 08/18/15 Reported TAKE WITH MORNING AND EVENING MEALS Flonase Allergy Relief (Fluticasone Propionate (Nasal)) 50 Mcg/Act Spr 2 Sprays STEFFANIE DAILY PRN 01/16/15 Reported Avodart (Dutasteride) 0.5 Mg Cap 0.5 Mg PO DAILY 01/16/15 Reported Amlodipine Besylate 5 Mg Tab 5 Mg PO DAILY 06/23/13 Reported Ascorbic Acid 500 Mg Tab 500 Mg PO DAILY 08/18/12 Reported Aggrenox 200MG/25MG (Aspirin-Dipyridamole 25MG/200MG) 1 Cap Cap 1 Capsule PO BID 07/02/12 Reported DO NOT CUT,CRUSH OR CHEW. Zyloprim (Allopurinol) 100 Mg Tab 100 Mg PO DAILY 11/07/11 Reported Vital Signs Weight (Kilograms): 79.55 Height (Feet): 5 Height (Inches): 5 Physical Exam General Appearance: no apparent distress Respiratory/Chest: Auscultation: breath sounds normal Cardiovascular: Heart Auscultation: RRR Abdomen: Inspection & Palpation: soft Assessment and Plan Stable for colonoscopy
[2017-06-27 11:04] VITALS: Ht 165.1 cm; Wt 79.5 kg
[2017-06-27 11:28] VITALS: PULSE 72; O2SAT 96
--- NOTE | 2017-06-27 12:43 | Discharge Instructions ---
Endoscopy Patient Instructions Date / Procedure(s) Performed June 27, 2017. Colonoscopy Allergy Information Coded Allergies: NO KNOWN DRUG ALLERGIES (Verified Allergy, Unknown, ., 06/22/17) Discharge Date / Findings June 27, 2017. Polyps, Diverticulosis and hemorrhoids Medication Instructions Stopped Medication(s): LASIX LAST DOSE 06/26/17 Provider Instructions Activity Restrictions - No exercising or heavy lifting for 24 hours. - Do not drink alcohol the day of the procedure. - Do not drive a car or operate machinery until the day after the procedure. - Do not make any important decisions or sign important papers in 24 hours after the procedure. Following Day: - Return to full activity which may include returning to work/school. Diet Start your diet with liquids and light foods (jello, soup, juice, toast). Then eat your usual diet if not nauseated. Treatment For Common After Affects For mild abdominal pain, bloating, or excessive gas: - Rest - Eat lightly - Lie on right side Follow-Up Information Follow-up with DEBI ROACH as scheduled Anesthesia Information What You Should Know You have had a procedure that required some medicine to reduce anxiety and discomfort. This treatment is called moderate sedation. After receiving the treatment, you may be sleepy, but you will be able to breathe on your own. The effects of the treatment may last for several hours. Follow these instructions along with Activity/Diet recommendations noted above: * Do NOT do anything where dizziness or clumsiness would be dangerous. * Rest quietly at home today, then you can be up and about tomorrow. * Have a responsible person stay with you the rest of today. * You may have had an I.V. today. If so, you may take the dressing off later today. Recommendations Call your doctor if: * Trouble breathing * Continuous vomiting for more than 24 hours * Temperature above 101 degrees * Severe abdominal pain or bloating * Pain not relieved by pain medicine ordered * There is increased drainage or redness from any incision * A large amount of rectal bleeding greater than 2-3 tablespoons. (If you had a polyp/s removed or have hemorrhoids, a small amount of blood - from the rectum is to be expected.) * You have any unanswered questions or concerns. IN THE EVENT OF A SERIOUS EMERGENCY, GO TO THE NEAREST EMERGENCY ROOM Your discharge instructions were prepared by provider Dougie Morrow. Patient Instructions Signature Page Vernon Anderson Patient (or Guardian) Signature/Date: I have read and understand the instructions given to me by my caregivers. Caregiver/RN/Doctor Signature/Date: The above-named patient and/or guardian has received patient instructions on this date. + Original Patient Signature Page (only) stays with chart. Please make copy for patient.
--- NOTE | 2017-06-27 12:48 | GI REPORT ---
Patient Name: Vernon Anderson Procedure Date: 06/27/2017 11:47 AM Date of : 1935 Admit Type: Outpatient Age: 82 Gender: Male Attending MD: Dougie Morrow MD Procedure: Colonoscopy Providers: Dougie Morrow MD Referring MD: Rick Rosado Indications: Incidental constipation noted Medicines: Monitored Anesthesia Care Complications: No immediate complications. Estimated Blood Loss: Estimated blood loss: none. Procedure: Pre-Anesthesia Assessment: - Prior to the procedure, a History and Physical was performed, and patient medications and allergies were reviewed. The patient is competent. The risks and benefits of the procedure and the sedation options and risks were discussed with the patient. All questions were answered and informed consent was obtained. Patient identification and proposed procedure were verified by the physician and the nurse in the procedure room. Mental Status Examination: alert and oriented. Airway Examination: normal oropharyngeal airway and neck mobility. Respiratory Examination: clear to auscultation. CV Examination: normal. ASA Grade Assessment: III - A patient with severe systemic disease. After reviewing the risks and benefits, the patient was deemed in satisfactory condition to undergo the procedure. The anesthesia plan was to use monitored anesthesia care (MAC). Immediately prior to administration of medications, the patient was re-assessed for adequacy to receive sedatives. The heart rate, respiratory rate, oxygen saturations, blood pressure, adequacy of pulmonary ventilation, and response to care were monitored throughout the procedure. The physical status of the patient was re-assessed after the procedure. After I obtained informed consent, the scope was passed under direct vision. Throughout the procedure, the patient's blood pressure, pulse, and oxygen saturations were monitored continuously. The scope was introduced through the anus and advanced to the cecum, identified by appendiceal orifice and ileocecal valve. The colonoscopy was performed without difficulty. The patient tolerated the procedure well. The quality of the bowel preparation was good. The terminal ileum, ileocecal valve, appendiceal orifice, and rectum were photographed. Findings: The perianal and digital rectal examinations were normal. 14 sessile polyps were found in the ascending colon and cecum. The polyps were 5 to 15 mm in size. These polyps were removed with a hot snare. Resection and retrieval were complete. Verification of patient identification for the specimen was done by the physician and nurse using the patient's name and date. Five sessile polyps were found in the transverse colon. The polyps were 5 to 12 mm in size. These polyps were removed with a hot snare. Resection and retrieval were complete. Multiple small and large-mouthed diverticula were found in the entire colon. The colon mucosa (entire examined portion) appeared normal. Biopsies for histology were taken with a cold forceps from the right colon and left colon for evaluation of microscopic colitis. Non-bleeding internal hemorrhoids were found during retroflexion. The hemorrhoids were medium-sized. Impression: - Fourteen (5 to 15) mm polyps in the ascending colon and in the cecum, removed with a hot snare. Resected and retrieved. - Five 5 to 12 mm polyps in the transverse colon, removed with a hot snare. Resected and retrieved. - Diverticulosis in the entire examined colon. - The entire examined colon musoca is normal. Biopsied. - Non-bleeding internal hemorrhoids. Recommendation: - Discharge patient to home. - Await pathology results. - Repeat colonoscopy in 6 months for surveillance of multiple polyps. - Return to referring physician. Dougie Morrow MD 06/27/2017 12:47:59 PM This report has been signed electronically. Note Initiated On: 06/27/2017 11:47 AM Number of Addenda: 0 I attest to the content of the Intraoperative Record and orders documented therein, exceptions below {[id number]}
--- NOTE | 2017-06-27 13:11 | Anesthesiology Progress Note ---
Anesthesia Post Op Note Date & Time June 27, 2017 at 13:10 Vital Signs Pain Intensity: 0 Vital Signs Past 12 Hours Date Time Temp Pulse Resp B/P (MAP) Pulse Ox O2 Delivery O2 Flow Rate FiO2 06/27/17 12:50 163/89 (113) 06/27/17 12:48 62 20 181/84 (116) 100 Room Air 06/27/17 12:33 62 16 120/59 (79) 99 Room Air 06/27/17 11:28 72 13 96 Room Air 06/27/17 11:02 36.5 54 22 161/87 (111) 98 Room Air Notes Mental Status: alert / awake / arousable, participated in evaluation Pt Amnestic to Procedure: Yes Nausea / Vomiting: adequately controlled Pain: adequately controlled Airway Patency, RR, SpO2: stable & adequate BP & HR: stable & adequate, see Notes Hydration State: stable & adequate Anesthetic Complications: no major complications apparent The patient is awake and comfortable. He is hypertensive at his baseline.
[2017-06-27 13:20] VITALS: BP 174/93; PULSE 60; O2SAT 98
== END | disposition home or self-care (01) ==
LOC: C.GI 09:42
PROVIDERS: ATTEND Student in an Organized Health Care Education/Training Program
DX: K59.09 Other constipation (principal); D12.2 Benign neoplasm of ascending colon; D12.3 Benign neoplasm of transverse colon; K57.90 Diverticulosis of intestine, part unspecified, without perforation or abscess without bleeding; K64.8 Other hemorrhoids; J44.9 Chronic obstructive pulmonary disease, unspecified; I12.9 Hypertensive chronic kidney disease with stage 1 through stage 4 chronic kidney disease, or unspecified chronic kidney disease; E11.9 Type 2 diabetes mellitus without complications; N18.4 Chronic kidney disease, stage 4 (severe); E03.9 Hypothyroidism, unspecified; N40.0 Benign prostatic hyperplasia without lower urinary tract symptoms; I50.9 Heart failure, unspecified; I25.10 Atherosclerotic heart disease of native coronary artery without angina pectoris; Z90.49 Acquired absence of other specified parts of digestive tract; Z96.652 Presence of left artificial knee joint; Z79.899 Other long term (current) drug therapy; Z87.891 Personal history of nicotine dependence; Z86.73 Personal history of transient ischemic attack (TIA), and cerebral infarction without residual deficits; Z85.828 Personal history of other malignant neoplasm of skin

== ENCOUNTER 2019-05-31 11:58 | Inpatient (IN) ==
--- NOTE | 2019-05-31 12:14 | Emergency Department Note ---
History of Present Illness General Chief complaint: Stroke/CVA Symptoms Time Seen by Provider: 05/31/19 12:02 Source: patient and EMS Mode of arrival: EMS Limitations: altered mental status History of Present Illness Provider complaint: Confusion Onset (ago): day(s) 1 Relieved By: + none Exacerbated By: + none This is a 83-year-old male who presents to the ED with a chief complaint of confusion. The patient presents from his residence. He was reportedly last known well at 10:30 PM last night. He was confused this morning and did not get out of bed. He did complain to EMS that he had some dizziness although he did not provide this complaint to me. His prehospital blood sugar was 124. The patient is a dialysis patient and had dialysis yesterday. He denies any specific complaints to me. Denies any chest pains, headaches, shortness of breath, abdominal pains, fevers or recent illness or any other complaints. He is cooperative and follows commands for me. The patient was seen here yesterday after dialysis and after having a syncopal episode. His evaluation here was without concerning abnormalities and he was discharged last night. He was fine when he went to bed at 10:30 PM last night, according to EMS. Home Medications Home Medications Medication Instructions Recorded Confirmed Type allopurinol [Zyloprim] 100 mg PO DAILY 10/30/17 05/31/19 History atorvastatin [Lipitor] 80 mg PO HS 10/30/17 05/31/19 History carvedilol [Coreg] 6.25 mg PO BID 10/30/17 05/31/19 History dutasteride [Avodart] 0.5 mg PO DAILY 10/30/17 05/31/19 History ezetimibe [Zetia] 10 mg PO QPM 10/30/17 05/31/19 History furosemide [Lasix] 40 mg PO DAILY 10/30/17 05/31/19 History levothyroxine [Synthroid] 150 mcg PO DAILY 10/30/17 05/31/19 History melatonin 3 mg PO HS PRN 10/30/17 05/31/19 History omeprazole 20 mg PO DAILY 10/30/17 05/31/19 History zolpidem [Ambien] 10 mg PO HS PRN 10/30/17 05/31/19 History albuterol sulfate 90 mcg/actuation 2 puff INHALATION Q4 PRN #18 gm 01/21/19 05/31/19 Rx aerosol inhaler ipratropium 0.5 mg-albuterol 3 mg 3 ml INHALATION BID PRN #180 ml 01/21/19 05/31/19 Rx (2.5 mg base)/3 mL nebulization soln nebulizer accessories #1 ea 02/13/19 05/31/19 Rx nebulizer and compressor #1 ea 02/13/19 05/31/19 Rx fluticasone furoate 200 1 puffs INH DAILY #28 ea 05/05/19 05/31/19 Rx mcg-vilanterol 25 mcg/dose inhalation powder amlodipine 2.5 mg PO QAM 05/30/19 05/31/19 History baclofen 10 mg PO TID PRN 05/30/19 05/31/19 History calcium acetate(phosphat bind) 667 mg PO UD 05/30/19 05/31/19 History docusate sodium 100 mg PO DAILY 05/30/19 05/31/19 History fluticasone propionate 2 spray INTRANASAL DAILY 05/30/19 05/31/19 History Allergies Allergy/AdvReac Type Severity Reaction Status Date / Time No Known Allergies Allergy Verified 05/30/19 21:09 Past Med/Surg History Medical History Arthritis AV fistula LEFT ARM Basal cell carcinoma (BCC) in situ of skin x2 Benign prostatic hyperplasia Chronic GERD CKD (chronic kidney disease), stage IV (Chronic) no dialysis COPD (chronic obstructive pulmonary disease) inhaler/nebulizer prn End stage chronic kidney disease Not on dialysis GERD (gastroesophageal reflux disease) Hernia Hyperlipidemia Hypertension Hypothyroidism Melanoma of skin On anticoagulant therapy aggrenox Osteoarthritis TIA (transient ischemic attack) (Resolved) 2015--no deficits--on aggrenox Surgical History History of angioplasty 1997 History of colonoscopy History of exploratory laparotomy 11/02/17 History of heart artery stent 1997--2 stents [place] [facility] [place] History of Mohs micrographic surgery for skin cancer x3 History of repair of right rotator cuff History of right cataract surgery 06/12/18: was given 2mg of IV versed History of thyroidectomy History of tooth extraction History of total left knee replacement (TKR) History of umbilical hernia repair Hx of cholecystectomy Family History Other No family history of adverse response to anesthesia Social History Preferred Language: Irish Communication Ability: Effective 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: No Beliefs That Will Affect Care: None marital status: Current Living Situation: Spouse Feels Safe at Home: Yes Smoking Status: Former smoker Second Hand Exposure: No ; Hx Alcohol Use: Yes Alcohol type: beer, wine and hard liquor Hx Substance Use: No Review of Systems A total of 10 systems reviewed and were otherwise negative Physical Exam Vital Signs Vital Signs - 24 hr 05/31/19 11:58 05/31/19 12:07 05/31/19 12:50 Temperature 37.3 C Temperature Source Oral Pulse Rate 59 L 59 L 60 Pulse Rate from SpO2 Sensor 59 L 60 Pulse Rhythm Regular Respiratory Rate 12 16 13 Respiratory Effort / Characteristics Non-Labored Spontaneous Respiratory Depth Normal Respiratory Pattern Regular Blood Pressure 193/81 H 193/81 H 194/77 H Blood Pressure Mean 118 121 88 Pulse Oximetry 98 97 94 Oxygen Delivery Method Room Air Room Air Room Air Sepsis Recent Fever Within 48 Hours No Sepsis New/Unexplained Change in Mental Status No Sepsis Action Taken by Nursing No Action Required VITAL SIGNS: were reviewed. Blood pressure is elevated at 193/81. GENERAL:Non-toxic in appearance. SKIN: Warm dry and pink. HEAD: Normocephalic and atraumatic. OROPHARYNX: Is clear and moist NECK: Supple without lymphadenopathy or meningismus. LUNGS: Are clear. HEART: Regular rate and rhythm. ABDOMEN: Soft and nontender. EXTREMITIES: Warm and well perfused. NEUROLOGICALLY: Awake alert and oriented without focal deficit. Cranial nerves 2-12 are intact. There is no pronator drift. Cerebellar testing is within normal limits. There is no nystagmus. There is no facial droop. Speech is c lear. Vision is grossly normal. MUSCULOSKELETAL: Good muscle tone. No evidence of trauma. Strength is symmetric. ALL NURSING NOTES WERE REVIEWED. Course Administered Medications Discontinued Medications Sodium Chloride (Nss) 500 mls @ 999 mls/hr IV .Q31M CHE Stop: 05/31/19 12:45 Last Infusion: 05/31/19 13:39 Dose: 0 mls/hr Documented by: [id number] Admin: 05/31/19 12:48 Dose: 999 mls/hr Documented by: [id number] Medical Decision Making Differential Diagnosis Differential includes acute coronary syndrome, myocardial infarction, CVA, TIA, anemia, infection, pneumonia, UTI, pyelonephritis, poor nutrition, dehydration, electrolyte disturbance,hypoglycemia. Medical Records Attestation: I reviewed the patient's medical records. Home Medications Current Medication List: was personally reviewed by me Laboratory Data Attestation: I reviewed the patient's lab results. Result diagrams: 05/31/19 12:15 05/31/19 12:15 Lab Results 05/31/19 05/31/19 05/31/19 Range/Units 12:15 12:15 12:15 WBC 9.68 (4.8-10.8) K/uL RBC 3.60 L (4.7-6.1) M/uL Hgb 11.3 L (14.0-18.0) g/dL Hct 34.3 L (42-52) % MCV 95.3 (80-100) fL MCH 31.4 (25-34) pg MCHC 32.9 (32-36) g/dL RDW Std Deviation 49.4 H (36.4-46.3) fL RDW Coeff of Ed 14.5 (11.5-14.5) % Plt Count 168 (130-400) K/uL MPV 10.6 H (7.4-10.4) fL Immature Gran % (Auto) 0.6 % Neut % (Auto) 78.2 % Lymph % (Auto) 11.3 % [place] % (Auto) 6.8 % Eos % (Auto) 2.9 % Baso % (Auto) 0.2 % Immature Gran # (Auto) 0.06 H (0.00-0.02) K/uL Neut # (Auto) 7.57 H (1.4-6.5) K/uL Lymph # (Auto) 1.09 L (1.2-3.4) K/uL [place] # (Auto) 0.66 H (0.11-0.59) K/uL Eos # (Auto) 0.28 (0-0.5) K/uL Baso # (Auto) 0.02 (0-0.2) K/uL PT 11.5 (9.0-12.0) Seconds INR 1.1 (0.9-1.1) Sodium 139 (136-145) mmol/L Potassium 3.5 (3.5-5.1) mmol/L Chloride 108 H (98-107) mmol/L Carbon Dioxide 29 (21-32) mmol/L Anion Gap 2.0 L (3-11) BUN 41 H (7-18) mg/dl Creatinine 4.45 H D (0.6-1.4) mg/dl Est Cr Clr Drug Dosing Not Reportable Est GFR ( Amer) 13.2 Est GFR (Non-Af Amer) 11.4 BUN/Creatinine Ratio 9.2 L (10-20) Glucose 124 H (70-99) mg/dl Calcium 8.4 L (8.5-10.1) mg/dl Magnesium 2.2 (1.8-2.4) mg/dl Total Bilirubin 0.9 (0.2-1) mg/dl AST 17 (15-37) U/L ALT 23 (12-78) U/L Alkaline Phosphatase 60 (45-117) U/L Total Creatine Kinase 52 (39-308) U/L Troponin I 0.015 (0-0.045) ng/ml Total Protein 6.3 L (6.4-8.2) gm/dl Albumin 3.1 L (3.4-5.0) gm/dl Globulin 3.2 (2.5-4.0) gm/dl Albumin/Globulin Ratio 1.0 (0.9-2) TSH 0.291 L (0.300-4.500) uIu/ml Free T4 1.18 (0.8-1.6) ng/dl Urine Color Urine Appearance (Clear) Urine pH (4.5-7.5) Ur Specific [place] (1.000-1.030) Urine Protein (Negative) Urine Glucose (UA) (Negative) Urine Ketones (Negative) Urine Blood (Negative) Urine Nitrite (Negative) Urine Bilirubin (Negative) Urine Urobilinogen (Negative) Ur Leukocyte Esterase (Negative) Urine WBC (Auto) (0-5) /hpf Urine RBC (Auto) (0-4) /hpf U Hyaline Cast (Auto) (0-5) /lpf U Epithel Cells (Auto) (0-5) /lpf Urine Bacteria (Auto) (Negative) 05/31/19 Range/Units 13:30 WBC (4.8-10.8) K/uL RBC (4.7-6.1) M/uL Hgb (14.0-18.0) g/dL Hct (42-52) % MCV (80-100) fL MCH (25-34) pg MCHC (32-36) g/dL RDW Std Deviation (36.4-46.3) fL RDW Coeff of Ed (11.5-14.5) % Plt Count (130-400) K/uL MPV (7.4-10.4) fL Immature Gran % (Auto) % Neut % (Auto) % Lymph % (Auto) % [place] % (Auto) % Eos % (Auto) % Baso % (Auto) % Immature Gran # (Auto) (0.00-0.02) K/uL Neut # (Auto) (1.4-6.5) K/uL Lymph # (Auto) (1.2-3.4) K/uL [place] # (Auto) (0.11-0.59) K/uL Eos # (Auto) (0-0.5) K/uL Baso # (Auto) (0-0.2) K/uL PT (9.0-12.0) Seconds INR (0.9-1.1) Sodium (136-145) mmol/L Potassium (3.5-5.1) mmol/L Chloride (98-107) mmol/L Carbon Dioxide (21-32) mmol/L Anion Gap (3-11) BUN (7-18) mg/dl Creatinine (0.6-1.4) mg/dl Est Cr Clr Drug Dosing Est GFR ( Amer) Est GFR (Non-Af Amer) BUN/Creatinine Ratio (10-20) Glucose (70-99) mg/dl Calcium (8.5-10.1) mg/dl Magnesium (1.8-2.4) mg/dl Total Bilirubin (0.2-1) mg/dl AST (15-37) U/L ALT (12-78) U/L Alkaline Phosphatase (45-117) U/L Total Creatine Kinase (39-308) U/L Troponin I (0-0.045) ng/ml Total Protein (6.4-8.2) gm/dl Albumin (3.4-5.0) gm/dl Globulin (2.5-4.0) gm/dl Albumin/Globulin Ratio (0.9-2) TSH (0.300-4.500) uIu/ml Free T4 (0.8-1.6) ng/dl Urine Color Yellow Urine Appearance Clear (Clear) Urine pH 7.5 (4.5-7.5) Ur Specific [place] 1.014 (1.000-1.030) Urine Protein 1+ H (Negative) Urine Glucose (UA) Negative (Negative) Urine Ketones Trace H (Negative) Urine Blood Negative (Negative) Urine Nitrite Negative (Negative) Urine Bilirubin Negative (Negative) Urine Urobilinogen Negative (Negative) Ur Leukocyte Esterase Negative (Negative) Urine WBC (Auto) 1-5 (0-5) /hpf Urine RBC (Auto) 0-4 (0-4) /hpf U Hyaline Cast (Auto) 5-10 H (0-5) /lpf U Epithel Cells (Auto) 0-5 (0-5) /lpf Urine Bacteria (Auto) Negative (Negative) Imaging Data Radiologist's Impression: CT scan of the head: IMPRESSION: There is no hemorrhage, mass effect, or evidence of acute territorial ischemia by CT criteria. Chest x-ray: IMPRESSION: Cardiomegaly with mild pulmonary vascular congestion. ECG Data Attestation: I personally reviewed and interpreted this ECG as follows: Indication: + weakness Rate (beats per minute): 57 Rhythm: + sinus rhythm ECG ST segments: no ST elevation ECG Findings: no PVCs Comparison ECG Date: from (Yesterday) Change: no significant change Blood Pressure Blood Pressure Findings: Elevated blood pressure Blood Pressure Disposition: Referred to patients primary care provider [facility] Narrative This is a 83-year-old male who presents to the ED with a chief complaint of confusion. The patient presents from his residence. He was reportedly last kno wn well at 10:30 PM last night. He was confused this morning and did not get out of bed. He did complain to EMS that he had some dizziness although he did not provide this complaint to me. His prehospital blood sugar was 124. The patient is a dialysis patient and had dialysis yesterday. He denies any specific complaints to me. Denies any chest pains, headaches, shortness of breath, abdominal pains, fevers or recent illness or any other complaints. He is cooperative and follows commands for me. The patient was seen here yesterday after dialysis and after having a syncopal episode. His evaluation here was without concerning abnormalities and he was discharged last night. He was fine when he went to bed at 10:30 PM last night, according to EMS. The patient's exam revealed hypertension. He has no focal neurologic deficits on my exam. He does follow commands. He does answer questions appropriately. The patient does seem to fall asleep easily and needs to be stimulated to pay attention. He states that he does feel drowsy. During the patient's evaluation here, the patient's nurse stated that he would intermittently seem to be confused and not be able to follow commands. Because of this, the patient will be seen by the hospitalist for further evaluation and observation. The patient's twelve-lead EKG shows a sinus bradycardia rate of 57 without unusual changes. CBC and chemistry panel was unremarkable. Baseline BUN and creatinine. Glucose is 124. Free T4 was normal. The patient's urine did not show obvious infection. Because of the patient's intermittent confusion and his second visit in less than 24 hours, the patient will be observed in the hospital to monitor symptoms. Impression & Plan AMS (altered mental status) Discharge Plan Visit Data Chief Complaint: Stroke/CVA Symptoms ED Provider: Thomas Christianson Discharge Problem: AMS (altered mental status) Patient Disposition: Being Evaluated by Hospitalist Forms Stand Alone Forms: [facility] Prescriptions Prescriptions: No Action (DME) nebulizer and compressor device See Rx Instructions [id number] .MEDSUPPLY Qty: 1 RF: 0 (DME) nebulizer accessories kit See Rx Instructions .ROUTE .MEDSUPPLY Qty: 1 RF: 0 Breo Ellipta 200-25 mcg/dose blister with device 1 puffs INH DAILY Qty: 28 RF: 5 albuterol sulfate [ProAir HFA] 90 mcg/actuation HFA aerosol inhaler 2 puff Inhalation Q4 PRN (Reason: Shortness Of Breath Or Wheezing) Qty: 18 RF: 5 ipratropium-albuterol 0.5 mg-3 mg(2.5 mg base)/3 mL solution for nebulization 3 ml INHALATION BID PRN (Reason: Shortness Of Breath Or Wheezing) Qty: 180 RF: 5 furosemide [Lasix] 40 mg tablet 40 mg PO DAILY RF: 0 atorvastatin [Lipitor] 80 mg tablet 80 mg PO HS RF: 0 carvedilol [Coreg] 6.25 mg tablet 6.25 mg PO BID RF: 0 melatonin 3 mg Tablet 3 mg PO HS PRN (Reason: Sleep) RF: 0 allopurinol [Zyloprim] 100 mg tablet 100 mg PO DAILY RF: 0 levothyroxine [Synthroid] 150 mcg tablet 150 mcg PO DAILY RF: 0 omeprazole 20 mg capsule,delayed release(DR/EC) 20 mg PO DAILY RF: 0 zolpidem [Ambien] 10 mg tablet 10 mg PO HS PRN (Reason: Sleep) RF: 0 dutasteride [Avodart] 0.5 mg capsule 0.5 mg PO DAILY RF: 0 ezetimibe [Zetia] 10 mg tablet 10 mg PO QPM RF: 0 amlodipine 2.5 mg tablet 2.5 mg PO QAM RF: 0 calcium acetate(phosphat bind) 667 mg capsule 667 mg PO UD RF: 0 baclofen 10 mg tablet 10 mg PO TID PRN (Reason: Muscle Spasm) RF: 0 docusate sodium 100 mg Capsule 100 mg PO DAILY RF: 0 fluticasone propionate 50 mcg/actuation [place],Suspension 2 spray INTRANASAL DAILY RF: 0 Referrals Referrals: Rick Rosado MD [Primary Care Provider] -
[2019-05-31] MEDS ORDERED: SODIUM CHLORIDE 0.9% 500 ML IV SCH (12:15)
[2019-05-31 12:26] LABS: Basophils # (auto) 0.02 K/uL (0-0.2); Basophils % (auto) 0.2 %; Eosinophils # (auto) 0.28 K/uL (0-0.5); Eosinophils % (auto) 2.9 %; Hematocrit (blood only) 34.3 % (42-52); Hemoglobin 11.3 g/dL (14.0-18.0); Immature Granulocytes # (auto) 0.06 K/uL (0.00-0.02); Immature Granulocytes % (auto) 0.6 %; Lymphocytes # (auto) 1.09 K/uL (1.2-3.4); Lymphocytes % (auto) 11.3 %; Mean Corpuscular Hemoglobin 31.4 pg (25-34); Mean Corpuscular Hgb Conc 32.9 g/dL (32-36); Mean Corpuscular Volume 95.3 fL (80-100); Mean Platelet Volume 10.6 fL (7.4-10.4); Monocytes # (auto) 0.66 K/uL (0.11-0.59); Monocytes % (auto) 6.8 %; Neutrophils # (auto) 7.57 K/uL (1.4-6.5); Neutrophils % (auto) 78.2 %; Platelet Count 168 K/uL (130-400); RDW Coefficient of Variation 14.5 % (11.5-14.5); RDW Standard Deviation 49.4 fL (36.4-46.3); White Blood Count 9.68 K/uL (4.8-10.8)
[2019-05-31 12:35] LABS: INR 1.1 (0.9-1.1); Prothrombin Time 11.5 Seconds (9.0-12.0)
--- NOTE | 2019-05-31 12:35 | XRay Report ---
SINGLE VIEW CHEST CLINICAL HISTORY: Generalized weakness. FINDINGS: An AP, portable, upright chest radiograph is compared to study dated 01/02/2019. The examin ation is degraded by portable technique and patient rotation. The heart is enlarged noting atheroscle rotic calcification of the thoracic aorta. There is mild pulmonary vascular congestion. Scarring/atel ectasis is noted at the lung bases. There is no airspace consolidation or large pleural effusion. No pneumothorax is seen. The skeletal structures are osteopenic. The bony thorax is grossly intact. A ri t shoulder arthroplasty is in place. IMPRESSION: Cardiomegaly with mild pulmonary vascular congestion. ACT 112: Negative or not required by law. Electronically signed by: Eusebio Escalante M.D. 05/31/2019 12:34 PM
[2019-05-31 12:43] LABS: Alanine Aminotransferase 23 U/L (12-78); Albumin Level 3.1 gm/dl (3.4-5.0); Aspartate Aminotransferase 17 U/L (15-37); BUN Creatinine Ratio 9.2 (10-20); Blood Urea Nitrogen 41 mg/dl (7-18); Calcium 8.4 mg/dl (8.5-10.1); Carbon Dioxide 29 mmol/L (21-32); Chloride 108 mmol/L (98-107); Est GFR (African American) 13.2; Est GFR (Non-African American) 11.4; Glucose 124 mg/dl (70-99); Magnesium 2.2 mg/dl (1.8-2.4); Potassium 3.5 mmol/L (3.5-5.1); Sodium 139 mmol/L (136-145)
--- NOTE | 2019-05-31 12:50 | CT Scan Report ---
. CT SCAN OF THE BRAIN WITHOUT IV CONTRAST CLINICAL HISTORY: Change in mental status. COMPARISON STUDY: CT of the brain dated 08/18/2015. TECHNIQUE: Unenhanced axial CT scan of the brain is performed from the vertex to the skull base. A do se lowering technique was utilized adhering to the principles of ALARA. The patient was scanned twice due to motion artifact. CT DOSE: 844.62 mGy.cm FINDINGS: Brain parenchyma: There are age-related involutional changes noting mild subcortical and periventric ular microangiopathic change. There is no hemorrhage, mass effect, or evidence of acute territorial i schemia by CT criteria. Jeong-white matter differentiation is preserved. No extra-axial fluid collecti on is seen. Ventricles, sulci, cisterns: Prominent secondary to involutional change. Intracranial vasculature: There is mild atherosclerotic calcification of the cavernous carotid arteri es. Calvarium: Unremarkable. Sinuses and mastoids: The visualized paranasal sinuses are clear. The mastoid air cells are well pneu matized. Orbits: The bony orbits are grossly intact. There are bilateral ocular lens implants. IMPRESSION: There is no hemorrhage, mass effect, or evidence of acute territorial ischemia by CT crit james. ACT 112: Negative or not required by law. Electronically signed by: Eusebio Escalante M.D. 05/31/2019 12:49 PM
[2019-05-31 12:54] LABS: Alkaline Phosphatase 60 U/L (45-117); Bilirubin,Total 0.9 mg/dl (0.2-1); Creatine Kinase 52 U/L (39-308); Globulin 3.2 gm/dl (2.5-4.0); Thyroid Stimulating Hormone 0.291 uIu/ml (0.300-4.500); Total Protein 6.3 gm/dl (6.4-8.2); Troponin I 0.015 ng/ml (0-0.045)
[2019-05-31 13:08] LABS: T4 Free Thyroxine 1.18 ng/dl (0.8-1.6)
--- NOTE | 2019-05-31 13:36 | Electrocardiogram Report ---
Test Reason : Blood Pressure : / mmHG Vent. Rate : 057 BPM Atrial Rate : 057 BPM P-R Int : 168 ms QRS Dur : 098 ms QT Int : 462 ms P-R-T Axes : 033 -12 025 degrees QTc Int : 449 ms Sinus bradycardia Minimal voltage criteria for LVH, may be normal variant Nonspecific ST abnormality Abnormal ECG When compared with ECG of 30-MAY-2019 20:37, No significant change was found Confirmed by Yusef Resendiz ([id number]) on 05/31/2019 1:36:19 PM Referred By: REFERRED SELF Confirmed By:Yusef Resendiz
[2019-05-31 13:45] LABS: Appearance Urine Clear (Clear); Bacteria Urine Automated Negative (Negative); Bilirubin Urine Negative (Negative); Blood Urine Negative (Negative); Color Urine Yellow; Epithelial Cell Urine Auto 0-5 /lpf (0-5); Glucose Urine UA Negative (Negative); Ketones Urine Trace (Negative); Leukocyte Esterase Urine Negative (Negative); Nitrite Urine Negative (Negative); RBC Urine Automated 0-4 /hpf (0-4); Specific Gravity Urine 1.014 (1.000-1.030); Urobilinogen Urine Negative (Negative); pH Urine 7.5 (4.5-7.5)
[2019-05-31 13:46] LABS: Protein Urine 1+ (Negative)
[2019-05-31 13:47] LABS: Sulfosalicylic Acid Urine Positive (Negative)
--- NOTE | 2019-05-31 15:24 | History & Physical Report ---
Date of Service May 31, 2019 Assessment & Plan (1) AMS (altered mental status): According to , baseline is AOX3, functional Patient is currently lethargic Differentials include: Medication side effect - Recently started baclofen Hypertensive encephalopathy - per BP recordings TIA/CVA - Has history of TIA per and was on aggrenox in the past Dysrhythmias Infection/Sepsis is less likely considering history, no leukocytosis or fevers Does not have a history of seizure disorder EKG shows sinus bradycardia with rate of 57, no ST-T changes Troponin is negative Electrolytes are unremarkable CT head did not show any acute hemorrhage/infarct/abnormality Will admit to PCU with telemetry for now Monitor neurological status Will keep NPO and start diet when mental status improves Get MRI brain Telemetry monitoring Monitor BP and optimize control if BP goes up again. Currently 137/72. stated he did not take his BP med today. Resume home BP med. Monitor to avoid precipitous drop Hold all sedating meds. Baclofen discontinued (2) Hypertension: BP currently poorly controlled Management as above (3) ESRD (end stage renal disease) on dialysis: Does not currently need HD per labs Gets HD MWF Nephrology consult for HD (4) COPD (chronic obstructive pulmonary disease): Stable Continue home inhalers (5) Hypothyroid: Continue home levothyroxine TSH yesterday was 0.409 and today in ER was 0.291 unclear FT4 normal (6) CAD (coronary artery disease): H/O of CAD reports h/o PCI in 1996 Continue aspirin, statin (7) Chronic diastolic heart failure: Currently euvolemic Continue coreg Optimize Bp control Continue lasix (8) DVT prophylaxis: Hep sq History of Present Illness 83-year-old man with history of coronary artery disease, diastolic heart failure, end-stage renal disease on hemodialysis Sunday, COPD, BPH, hypothyroidism, gallops, reflux esophagitis who presented to the emergency room for altered mental status. History obtained from over the phone and ER chart review. According to , patient symptoms started yesterday evening after dinner. Had his HD earlier that day without incident.Patient started complaining of feeling unwell and some abdominal discomfort. Had a syncopal episode that lasted a few minutes, after which he was confused and was brought to the ER. Patient was evaluated in ER and discharged home yesterday night. says reported that he was fine when he came back from the emergency room. However, this morning she noticed that patient was very weak and lethargic, not able to sit up or walk around supporting himself and was confused. Not able to hold conversation or answer appropriately. No reported slurred speech or facial deviation. No noted focal weakness No reported seizure activity Per , Patient has not had any fevers, cough, shortness of breath, chest pain No reported history of falls or head trauma No dysuria, frequency, urgency according to . No sick contacts or recent travel Has been having right shoulder pain for which he was seen by PCP and orthopedic doctor 2 days ago. He got TP injections of lidocaine per [facility] chart review and was started on baclofen 10mg prn muscle spasm. He started taking the medication the night prior to onset of symptoms. In ER, patient's blood pressure was 193/81 on admission. During my evaluation, BP at the time was 137/72, HR 62, RR 10 Patient is laying quietly in bed, awakens to call, able to tell me his name but not able to answer any other questions, intermittently closing his eyes. Occasionally follows simple commands Primary Care Provider: Rick Rosado MD Allergies Allergy/AdvReac Type Severity Reaction Status Date / Time No Known Allergies Allergy Verified 05/30/19 21:09 Home Medications Home Medications Medication Instructions Recorded Confirmed Type allopurinol [Zyloprim] 100 mg PO DAILY 10/30/17 05/31/19 History atorvastatin [Lipitor] 80 mg PO HS 10/30/17 05/31/19 History carvedilol [Coreg] 6.25 mg PO BID 10/30/17 05/31/19 History dutasteride [Avodart] 0.5 mg PO DAILY 10/30/17 05/31/19 History ezetimibe [Zetia] 10 mg PO QPM 10/30/17 05/31/19 History furosemide [Lasix] 40 mg PO BID 10/30/17 05/31/19 History levothyroxine [Synthroid] 150 mcg PO DAILY 10/30/17 05/31/19 History melatonin 3 mg PO HS PRN 10/30/17 05/31/19 History omeprazole 20 mg PO DAILY 10/30/17 05/31/19 History zolpidem [Ambien] 10 mg PO HS PRN 10/30/17 05/31/19 History albuterol sulfate 90 mcg/actuation 2 puff INHALATION Q4 PRN #18 gm 01/21/19 05/31/19 Rx aerosol inhaler ipratropium 0.5 mg-albuterol 3 mg 3 ml INHALATION BID PRN #180 ml 01/21/19 05/31/19 Rx (2.5 mg base)/3 mL nebulization soln nebulizer accessories #1 ea 02/13/19 05/31/19 Rx nebulizer and compressor #1 ea 02/13/19 05/31/19 Rx fluticasone furoate 200 1 puffs INH DAILY #28 ea 05/05/19 05/31/19 Rx mcg-vilanterol 25 mcg/dose inhalation powder amlodipine 2.5 mg PO QAM 05/30/19 05/31/19 History baclofen 10 mg PO TID PRN 05/30/19 05/31/19 History calcium acetate(phosphat bind) 667 mg PO UD 05/30/19 05/31/19 History docusate sodium 100 mg PO DAILY 05/30/19 05/31/19 History fluticasone propionate 2 spray INTRANASAL DAILY 05/30/19 05/31/19 History aspirin 81 mg PO DAILY 05/31/19 05/31/19 History Past Med/Surg History Medical History Arthritis AV fistula LEFT ARM Basal cell carcinoma (BCC) in situ of skin x2 Benign prostatic hyperplasia Chronic GERD CKD (chronic kidney disease), stage IV (Chronic) no dialysis COPD (chronic obstructive pulmonary disease) inhaler/nebulizer prn End stage chronic kidney disease Not on dialysis GERD (gastroesophageal reflux disease) Hernia Hyperlipidemia Hypertension Hypothyroidism Melanoma of skin On anticoagulant therapy aggrenox Osteoarthritis TIA (transient ischemic attack) (Resolved) 2015--no deficits--on aggrenox Surgical History History of angioplasty 1997 History of colonoscopy History of exploratory laparotomy 11/02/17 History of heart artery stent 1997--2 stents @ [facility] History of Mohs micrographic surgery for skin cancer x3 History of repair of right rotator cuff History of right cataract surgery 06/12/18: was given 2mg of IV versed History of thyroidectomy History of tooth extraction History of total left knee replacement (TKR) History of umbilical hernia repair Hx of cholecystectomy Family History Other No family history of adverse response to anesthesia Social History Preferred Language: Mongolian Communication Ability: Impaired 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 Oriented to person only Eyes: PERRL, conjunctivae normal, anicteric sclerae ENMT: external ear and nose normal, oropharynx normal Respiratory: normal respiratory effort, lungs clear to auscultation Cardiovascular: Rate/Rhythm: regular rate and regular rhythm Extremities: no pedal edema S1 S2 Gastrointestinal (Abdomen): normal bowel sounds, soft, nontender, no hepatosplenomegaly Neurologic: PERRL, EOMI, accommodation nl, no face palsy, no dysarthria Laying quietly in bed Opens eye to call. Oriented to person only Moves all extremities spontaneously Occasionally follows simple commands Psychiatric: Opens eye to call. Oriented to person only Genitourinary: no CVA tenderness Results & Data Results & Data ([facility]) Vital Signs (Past 12 Hours) Vital Signs Temp Pulse Resp BP Pulse Ox 05/31/19 14:30 58 L 10 L 137/72 05/31/19 14:00 60 10 L 177/90 H 99 05/31/19 13:00 60 15 170/75 H 99 05/31/19 12:50 60 13 194/77 H 94 05/31/19 12:07 59 L 16 193/81 H 97 05/31/19 11:58 37.3 C 59 L 12 193/81 H 98 Laboratory Results Laboratory Results - last 24 hr 05/31/19 05/31/19 05/31/19 12:15 12:15 12:15 WBC 9.68 RBC 3.60 L Hgb 11.3 L Hct 34.3 L MCV 95.3 MCH 31.4 MCHC 32.9 RDW Std Deviation 49.4 H RDW Coeff of Ed 14.5 Plt Count 168 MPV 10.6 H Immature Gran % (Auto) 0.6 Neut % (Auto) 78.2 Lymph % (Auto) 11.3 [place] % (Auto) 6.8 Eos % (Auto) 2.9 Baso % (Auto) 0.2 Immature Gran # (Auto) 0.06 H Neut # (Auto) 7.57 H Lymph # (Auto) 1.09 L [place] # (Auto) 0.66 H Eos # (Auto) 0.28 Baso # (Auto) 0.02 PT 11.5 INR 1.1 Sodium 139 Potassium 3.5 Chloride 108 H Carbon Dioxide 29 Anion Gap 2.0 L BUN 41 H Creatinine 4.45 H D Est Cr Clr Drug Dosing Not Reportable Est GFR ( Amer) 13.2 Est GFR (Non-Af Amer) 11.4 BUN/Creatinine Ratio 9.2 L Glucose 124 H Calcium 8.4 L Magnesium 2.2 Total Bilirubin 0.9 AST 17 ALT 23 Alkaline Phosphatase 60 Total Creatine Kinase 52 Troponin I 0.015 Total Protein 6.3 L Albumin 3.1 L Globulin 3.2 Albumin/Globulin Ratio 1.0 TSH 0.291 L Free T4 1.18 Urine Color Urine Appearance Urine pH Ur Specific [place] Urine Protein Urine Glucose (UA) Urine Ketones Urine Blood Urine Nitrite Urine Bilirubin Urine Urobilinogen Ur Leukocyte Esterase Urine WBC (Auto) Urine RBC (Auto) U Hyaline Cast (Auto) U Epithel Cells (Auto) Urine Bacteria (Auto) 05/31/19 13:30 WBC RBC Hgb Hct MCV MCH MCHC RDW Std Deviation RDW Coeff of Ed Plt Count MPV Immature Gran % (Auto) Neut % (Auto) Lymph % (Auto) [place] % (Auto) Eos % (Auto) Baso % (Auto) Immature Gran # (Auto) Neut # (Auto) Lymph # (Auto) [place] # (Auto) Eos # (Auto) Baso # (Auto) PT INR Sodium Potassium Chloride Carbon Dioxide Anion Gap BUN Creatinine Est Cr Clr Drug Dosing Est GFR ( Amer) Est GFR (Non-Af Amer) BUN/Creatinine Ratio Glucose Calcium Magnesium Total Bilirubin AST ALT Alkaline Phosphatase Total Creatine Kinase Troponin I Total Protein Albumin Globulin Albumin/Globulin Ratio TSH Free T4 Urine Color Yellow Urine Appearance Clear Urine pH 7.5 Ur Specific [place] 1.014 Urine Protein 1+ H Urine Glucose (UA) Negative Urine Ketones Trace H Urine Blood Negative Urine Nitrite Negative Urine Bilirubin Negative Urine Urobilinogen Negative Ur Leukocyte Esterase Negative Urine WBC (Auto) 1-5 Urine RBC (Auto) 0-4 U Hyaline Cast (Auto) 5-10 H U Epithel Cells (Auto) 0-5 Urine Bacteria (Auto) Negative Diagnostic Findings CT SCAN OF THE BRAIN WITHOUT IV CONTRAST CLINICAL HISTORY: Change in mental status. COMPARISON STUDY: CT of the brain dated 08/18/2015. TECHNIQUE: Unenhanced axial CT scan of the brain is performed from the vertex to the skull base. A dose lowering technique was utilized adhering to the principles of ALARA. The patient was scanned twice due to motion artifact. CT DOSE: 844.62 mGy.cm FINDINGS: Brain parenchyma: There are age-related involutional changes noting mild subcortical and periventricular microangiopathic change. There is no hemorrhage, mass effect, or evidence of acute territorial ischemia by CT criteria. Jeong- white matter differentiation is preserved. No extra-axial fluid collection is seen. Ventricles, sulci, cisterns: Prominent secondary to involutional change. Intracranial vasculature: There is mild atherosclerotic calcification of the cavernous carotid arteries. Calvarium: Unremarkable. Sinuses and mastoids: The visualized paranasal sinuses are clear. The mastoid air cells are well pneumatized. Orbits: The bony orbits are grossly intact. There are bilateral ocular lens implants. IMPRESSION: There is no hemorrhage, mass effect, or evidence of acute territorial ischemia by CT criteria. Chest Xray CLINICAL HISTORY: Generalized weakness. FINDINGS: An AP, portable, upright chest radiograph is compared to study dated 01/02/2019. The examination is degraded by portable technique and patient rotation. The heart is enlarged noting atherosclerotic calcification of the thoracic aorta. There is mild pulmonary vascular congestion. Scarring/atelectasis is noted at the lung bases. There is no airspace consolidation or large pleural effusion. No pneumothorax is seen. The skeletal structures are osteopenic. The bony thorax is grossly intact. A right shoulder arthroplasty is in place. IMPRESSION: Cardiomegaly with mild pulmonary vascular congestion. Code Status & VTE Plan VTE Prophylaxis Plan VTE Prophylaxis will be ordered: Yes (1) AMS (altered mental status) Altered mental status type: transient alteration of awareness Qualified Code(s): R40.4 - Transient alteration of awareness
[2019-05-31] MEDS ORDERED: CALCIUM ACETATE 667 MG CAP/TAB PO SCH (15:52)
[2019-05-31] MEDS ORDERED: ALBUTEROL HFA 8 GM INHALER INH PRN (15:52)
[2019-05-31] MEDS ORDERED: CALCIUM ACETATE 667 MG CAP/TAB PO PRN (16:04)
[2019-05-31] MEDS ORDERED: HydrALAZINE HCL 20 MG/ML VIAL IV ONE (16:23)
[2019-05-31] MEDS ORDERED: AMLODIPINE BESYLATE 5 MG TAB PO ONE (16:24)
--- NOTE | 2019-05-31 17:57 | Magnetic Resonance Report ---
MRI OF THE BRAIN WITHOUT IV CONTRAST CLINICAL HISTORY: Change in mental status. COMPARISON STUDY: CT of the brain dated 05/31/2019. TECHNIQUE: MRI of the brain was performed utilizing various T1 and T2-weighted sequences in the axial , sagittal, and coronal planes. IV contrast was not administered for this examination. The examinatio n is modestly degraded by motion artifact. FINDINGS: Brain parenchyma: There is age-related involutional change noting minimal subcortical and periventric ular microangiopathic disease. There is no hemorrhage or mass effect. There is no restricted diffusio n to suggest acute ischemia. Jeong-white matter differentiation is preserved. No extra-axial fluid col lection is seen. The cerebellar tonsils are normal in configuration. Ventricles, sulci, and cisterns: Prominent secondary to involutional change. Pituitary and sella: Unremarkable. Intracranial vasculature: Normal flow voids are maintained at the skull base. Orbits: The bony orbits are grossly intact. Orbital contents are normal in appearance noting bilatera l ocular lens implants. Sinuses and mastoids: There is a trace left mastoid effusion. The right mastoid air cells are well pn eumatized. The paranasal sinuses are clear. Calvarium: Unremarkable. Cervical cord: Partially visualized cervical spinal cord is normal in morphology and signal intensity . IMPRESSION: No acute intracranial abnormality. ACT 112: Negative or not required by law. Electronically signed by: Eusebio Escalante M.D. 05/31/2019 5:55 PM
[2019-05-31] MEDS: FUROSEMIDE 40 MG TAB PO SCH (18:35)
[2019-05-31] MEDS: CALCIUM ACETATE 667 MG CAP/TAB PO SCH (18:35)
[2019-05-31] MEDS ORDERED: HYDROmorphone INJ 0.5 MG/0.5 ML SYR IV STA (20:30)
[2019-05-31] MEDS: ATORVASTATIN 40 MG TAB PO SCH (20:44)
[2019-05-31] MEDS: EZETIMIBE 10 MG TABLET PO SCH (20:44)
[2019-05-31] MEDS: HEPARIN SOD 5,000 UNIT/0.5 ML VIAL SQ SCH (20:44)
[2019-05-31] MEDS: carvediloL 6.25 MG TAB PO SCH (20:44)
[2019-05-31] MEDS ORDERED: LORazepam 0.5 MG/1 ML VIAL IV STA ×2 (22:43→23:07)
[2019-06-01] MEDS ORDERED: HALOPERIDOL LACTATE 5 MG/ML 1 ML VIAL IM STA (03:06)
[2019-06-01] MEDS: DUTASTERIDE: ORDER AWAITING ACTION SCH ×3 (03:18→23:52)
[2019-06-01] MEDS: LEVOTHYROXINE SODIUM 150 MCG TABLET PO SCH ×2 (05:57→06:13)
[2019-06-01] MEDS: HEPARIN SOD 5,000 UNIT/0.5 ML VIAL SQ SCH ×3 (05:57→21:50)
--- NOTE | 2019-06-01 07:12 | XRay Report ---
KUB HISTORY: Acute generalized abdominal pain abdominal pain COMPARISON: KUB 11/02/2017 FINDINGS: Areas noted within the large and small bowel. Multiple prominent loops of small bowel withi n the right abdomen measure up to 2.7 cm transversely. Surgical clips of the abdominal right upper qu adrant suggest prior cholecystectomy. Limited exam secondary to the right lateral abdomen excluded fr om the [id number]. There is no organomegaly. Renal shadows are obscured by bowel gas. No definite urolith. Calcifications of the pelvis suggest phleboliths. No pneumoperitoneum or pneumatosis. Multi level degenerative changes of the spine. No fracture. IMPRESSION: 1. Nonobstructive bowel gas pattern. 2. Multiple air-filled prominent loops of small bowel within the right abdomen may be physiologic or reflect a mild ileus. ACT 112: Negative or not required by law. The above report was generated using voice recognition software. It may contain grammatical, syntax o r spelling errors. Electronically signed by: Emeterio Steen M.D. 06/01/2019 7:11 AM
[2019-06-01 07:14] LABS: INR 1.1 (0.9-1.1); Prothrombin Time 11.6 Seconds (9.0-12.0)
[2019-06-01 07:37] LABS: Albumin Globulin Ratio 1.2 (0.9-2); Albumin Level 3.3 gm/dl (3.4-5.0); BUN Creatinine Ratio 9.6 (10-20); Bilirubin,Total 1.1 mg/dl (0.2-1); Calcium 9.1 mg/dl (8.5-10.1); Est GFR (African American) 11.7; Est GFR (Non-African American) 10.1; Globulin 2.8 gm/dl (2.5-4.0); Magnesium 2.3 mg/dl (1.8-2.4); Phosphorus 2.5 mg/dl (2.5-4.9); Potassium 3.8 mmol/L (3.5-5.1); Total Protein 6.1 gm/dl (6.4-8.2)
--- NOTE | 2019-06-01 09:57 | Hospitalist Progress Note ---
Date of Service June 01, 2019 Assessment & Plan (1) AMS (altered mental status): According to , baseline is AOX3, functional Differentials include: Medication side effect - Recently started baclofen Hypertensive encephalopathy - per BP recordings Infection/Sepsis is less likely considering history, no leukocytosis or fevers, lactate is normal. Does not have a history of seizure disorder EKG shows sinus bradycardia with rate of 57, no ST-T changes Troponin is negative Electrolytes are unremarkable CT head did not show any acute hemorrhage/infarct/abnormality MRI brain did not show any acute abnormality KUB done overnight showed mild ileus Clinical exam showed soft abdomen, normal bowel sounds Patient does have a h/o ventral hernia repair Will monitor bowel movement Encephalopathy is likely medication related Continue to monitor neurological status Avoid all sedatives. Use constant redirecting Was tolerating po yesterday evening Discussed with RN. To reassess swallowing when more awake before initiating diet Telemetry monitoring Monitor BP and optimize control of blood pressure (2) Hypertension: BP currently poorly controlled Management as above (3) ESRD (end stage renal disease) on dialysis: Gets HD MWF Nephrology consult for HD (4) COPD (chronic obstructive pulmonary disease): Stable Continue home inhalers (5) Hypothyroid: Continue home levothyroxine TSH yesterday was 0.409 and 0.291 on 05/30/19 and 05/31/2019 respectively (unclear repeat) FT4 normal (6) CAD (coronary artery disease): H/O of CAD reports h/o PCI in 1996 Continue aspirin, statin (7) Chronic diastolic heart failure: Currently euvolemic Continue coreg Optimize Bp control Continue lasix (8) DVT prophylaxis: [facility] Called and updated her about patient's current status and plans Admission and Anticipated Discharge Date Admission Date: May 31, 2019 Subjective Patient seen and examined. Per Digital Design Engineer and RN, he was very agitated overnight Received ativan and haldol Currently sleeping Review of Systems Review of Systems: Unobtainable due to cognitive status Physical Exam Constitutional: + well hydrated; no acute distress Drowsy Eyes: PERRL, conjunctivae normal, anicteric sclerae Respiratory: normal respiratory effort, lungs clear to auscultation no respiratory distress Cardiovascular: Rate/Rhythm: regular rate and regular rhythm Extremities: no pedal edema Gastrointestinal (Abdomen): normal bowel sounds, soft, nontender, no hepatosplenomegaly Percussion/Palpation: abdomen soft Neurologic: Drowsy (likely due to sedatives received overnight) Limited neuro exam due to mental status Genitourinary: no CVA tenderness Results & Data Results & Data ([facility]) Vital Signs (Past 12 Hours) Vital Signs Temp Pulse Pulse Resp BP Pulse Ox 06/01/19 08:00 61 06/01/19 07:49 36.4 C L 62 18 163/72 H 96 06/01/19 04:07 36.6 C 61 16 141/73 H 98 05/31/19 23:56 36.4 C L 66 16 194/94 H 94 05/31/19 23:00 75 Laboratory Results Laboratory Results - last 24 hr 05/31/19 05/31/19 05/31/19 12:15 12:15 12:15 WBC 9.68 RBC 3.60 L Hgb 11.3 L Hct 34.3 L MCV 95.3 MCH 31.4 MCHC 32.9 RDW Std Deviation 49.4 H RDW Coeff of Ed 14.5 Plt Count 168 MPV 10.6 H Immature Gran % (Auto) 0.6 Neut % (Auto) 78.2 Lymph % (Auto) 11.3 [place] % (Auto) 6.8 Eos % (Auto) 2.9 Baso % (Auto) 0.2 Immature Gran # (Auto) 0.06 H Neut # (Auto) 7.57 H Lymph # (Auto) 1.09 L [place] # (Auto) 0.66 H Eos # (Auto) 0.28 Baso # (Auto) 0.02 PT 11.5 INR 1.1 Sodium 139 Potassium 3.5 Chloride 108 H Carbon Dioxide 29 Anion Gap 2.0 L BUN 41 H Creatinine 4.45 H D Est Cr Clr Drug Dosing Not Reportable Est GFR ( Amer) 13.2 Est GFR (Non-Af Amer) 11.4 BUN/Creatinine Ratio 9.2 L Glucose 124 H Lactate Calcium 8.4 L Phosphorus Magnesium 2.2 Total Bilirubin 0.9 AST 17 ALT 23 Alkaline Phosphatase 60 Total Creatine Kinase 52 Troponin I 0.015 Total Protein 6.3 L Albumin 3.1 L Globulin 3.2 Albumin/Globulin Ratio 1.0 TSH 0.291 L Free T4 1.18 Urine Color Urine Appearance Urine pH Ur Specific [place] Urine Protein Urine Glucose (UA) Urine Ketones Urine Blood Urine Nitrite Urine Bilirubin Urine Urobilinogen Ur Leukocyte Esterase Urine WBC (Auto) Urine RBC (Auto) U Hyaline Cast (Auto) U Epithel Cells (Auto) Urine Bacteria (Auto) Nasal Screen MRSA (PCR) 05/31/19 05/31/19 05/31/19 13:30 18:50 23:16 WBC RBC Hgb Hct MCV MCH MCHC RDW Std Deviation RDW Coeff of Ed Plt Count MPV Immature Gran % (Auto) Neut % (Auto) Lymph % (Auto) [place] % (Auto) Eos % (Auto) Baso % (Auto) Immature Gran # (Auto) Neut # (Auto) Lymph # (Auto) [place] # (Auto) Eos # (Auto) Baso # (Auto) PT INR Sodium Potassium Chloride Carbon Dioxide Anion Gap BUN Creatinine Est Cr Clr Drug Dosing Est GFR ( Amer) Est GFR (Non-Af Amer) BUN/Creatinine Ratio Glucose Lactate 1.4 0.9 Calcium Phosphorus Magnesium Total Bilirubin AST ALT Alkaline Phosphatase Total Creatine Kinase Troponin I Total Protein Albumin Globulin Albumin/Globulin Ratio TSH Free T4 Urine Color Yellow Urine Appearance Clear Urine pH 7.5 Ur Specific [place] 1.014 Urine Protein 1+ H Urine Glucose (UA) Negative Urine Ketones Trace H Urine Blood Negative Urine Nitrite Negative Urine Bilirubin Negative Urine Urobilinogen Negative Ur Leukocyte Esterase Negative Urine WBC (Auto) 1-5 Urine RBC (Auto) 0-4 U Hyaline Cast (Auto) 5-10 H U Epithel Cells (Auto) 0-5 Urine Bacteria (Auto) Negative Nasal Screen MRSA (PCR) 05/31/19 06/01/19 06/01/19 Unknown 06:41 06:41 WBC RBC Hgb Hct MCV MCH MCHC RDW Std Deviation RDW Coeff of Ed Plt Count MPV Immature Gran % (Auto) Neut % (Auto) Lymph % (Auto) [place] % (Auto) Eos % (Auto) Baso % (Auto) Immature Gran # (Auto) Neut # (Auto) Lymph # (Auto) [place] # (Auto) Eos # (Auto) Baso # (Auto) PT 11.6 INR 1.1 Sodium 144 Potassium 3.8 Chloride 108 H Carbon Dioxide 28 Anion Gap 8.0 BUN 47 H Creatinine 4.91 H* D Est Cr Clr Drug Dosing 11.0 Est GFR ( Amer) 11.7 Est GFR (Non-Af Amer) 10.1 BUN/Creatinine Ratio 9.6 L Glucose 118 H Lactate Calcium 9.1 Phosphorus 2.5 Magnesium 2.3 Total Bilirubin 1.1 H AST 26 ALT 26 Alkaline Phosphatase 51 Total Creatine Kinase Troponin I Total Protein 6.1 L Albumin 3.3 L Globulin 2.8 Albumin/Globulin Ratio 1.2 TSH Free T4 Urine Color Urine Appearance Urine pH Ur Specific [place] Urine Protein Urine Glucose (UA) Urine Ketones Urine Blood Urine Nitrite Urine Bilirubin Urine Urobilinogen Ur Leukocyte Esterase Urine WBC (Auto) Urine RBC (Auto) U Hyaline Cast (Auto) U Epithel Cells (Auto) Urine Bacteria (Auto) Nasal Screen MRSA (PCR) Negative Diagnostic Findings MRI OF THE BRAIN WITHOUT IV CONTRAST CLINICAL HISTORY: Change in mental status. COMPARISON STUDY: CT of the brain dated 05/31/2019. TECHNIQUE: MRI of the brain was performed utilizing various T1 and T2-weighted sequences in the axial, sagittal, and coronal planes. IV contrast was not administered for this examination. The examination is modestly degraded by motion artifact. FINDINGS: Brain parenchyma: There is age-related involutional change noting minimal subcortical and periventricular microangiopathic disease. There is no hemorrhage or mass effect. There is no restricted diffusion to suggest acute ischemia. Jeong-white matter differentiation is preserved. No extra-axial fluid collection is seen. The cerebellar tonsils are normal in configuration. Ventricles, sulci, and cisterns: Prominent secondary to involutional change. Pituitary and sella: Unremarkable. Intracranial vasculature: Normal flow voids are maintained at the skull base. Orbits: The bony orbits are grossly intact. Orbital contents are normal in appearance noting bilateral ocular lens implants. Sinuses and mastoids: There is a trace left mastoid effusion. The right mastoid air cells are well pneumatized. The paranasal sinuses are clear. Calvarium: Unremarkable. Cervical cord: Partially visualized cervical spinal cord is normal in morphology and signal intensity. IMPRESSION: No acute intracranial abnormality. KUB FINDINGS: Areas noted within the large and small bowel. Multiple prominent loops of small bowel within the right abdomen measure up to 2.7 cm transversely. Surgical clips of the abdominal right upper quadrant suggest prior cholecystectomy. Limited exam secondary to the right lateral abdomen excluded from the [id number]. There is no organomegaly. Renal shadows are obscured by bowel gas. No definite urolith. Calcifications of the pelvis suggest phleboliths. No pneumoperitoneum or pneumatosis. Multilevel degenerative changes of the spine. No fracture. IMPRESSION: 1. Nonobstructive bowel gas pattern. 2. Multiple air-filled prominent loops of small bowel within the right abdomen may be physiologic or reflect a mild ileus (1) AMS (altered mental status) Altered mental status type: transient alteration of awareness Qualified Code(s): R40.4 - Transient alteration of awareness
[2019-06-01] MEDS: HydrALAZINE HCL 20 MG/ML VIAL IV PRN (11:05)
[2019-06-01] MEDS: allopurinoL 100 MG TAB PO SCH (12:09)
[2019-06-01] MEDS: PANTOprazole 40 MG TAB PO SCH (12:10)
[2019-06-01] MEDS: AMLODIPINE BESYLATE 5 MG TAB PO SCH (12:11)
[2019-06-01] MEDS: FLUTICASONE/VILANTEROL 200/25MCG 14 PUFFS/INHALER INH SCH (12:11)
[2019-06-01] MEDS: carvediloL 6.25 MG TAB PO SCH ×2 (12:11→20:03)
[2019-06-01] MEDS: FUROSEMIDE 40 MG TAB PO SCH (12:11)
[2019-06-01] MEDS: DOCUSATE SODIUM 100 MG CAP PO SCH (12:11)
[2019-06-01] MEDS: CALCIUM ACETATE 667 MG CAP/TAB PO SCH ×3 (12:11→16:38)
--- NOTE | 2019-06-01 14:47 | Nephrology Consultation ---
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, 1.5L FR pls Present on Admission?: Yes (2) AMS (altered mental status): suspect from baclofen/new med; no concern at this point for infection or arrhythmia but monitoring for same >>>pt prone to constipation/ileus >> ensure appropriate bowel regimen after narcotic exposure Present on Admission?: Yes (3) Hypertension: labile but at time son higher side w/ HR at about 60 -cont CCB and BB >changed lasix to IV from po >wrote for prn enaliprilat as well prn sbp >160 -will use enaliprilat preferentially over hydralazine given CAD hx -- so ordered -goal abp about 150-170s systolic Present on Admission?: Yes History of Present Illness Reason for Consultation: ESRD on dialysis Requesting Physician: Dr Watkins Attending Physician: Coty Watkins MD History of Present Illness 83 y/o M whom I'm asked to see for dialysis needs after he was admitted yesterday to evaluate confusion. He dialyzes under my care MWF via avf at [facility]. PMH includes copd, chronic diastolic HF, hypothyroid, CAD, GERD, remote TIA. Had routine HD on 05/29 w/o issues. On 05/30 after supper pt reported abdominal pain, had syncope, and afterward was confused and brought to ER for eval. Started on baclofen 05/28 for R shoulder pain refractory to injections and for mm spasms by PCP. Some labile sbp on presentation: ranging from 130-190s. He was extremely agitated overnight and had 2 doses of ativan as well as haldol, dilaudid. This am he is sleeping soundly and protecting airway but difficult to arouse for more than a few seconds; currently NPO until swallowing can be better assessed. Noted to have urinary retention > lockhart placed w/ about 1L output. Allergies Allergy/AdvReac Type Severity Reaction Status Date / Time No Known Allergies Allergy Verified 05/30/19 21:09 Home Medications Home Medications Medication Instructions Recorded Confirmed Type allopurinol [Zyloprim] 100 mg PO DAILY 10/30/17 05/31/19 History atorvastatin [Lipitor] 80 mg PO HS 10/30/17 05/31/19 History carvedilol [Coreg] 6.25 mg PO BID 10/30/17 05/31/19 History dutasteride [Avodart] 0.5 mg PO DAILY 10/30/17 05/31/19 History ezetimibe [Zetia] 10 mg PO QPM 10/30/17 05/31/19 History furosemide [Lasix] 40 mg PO BID 10/30/17 05/31/19 History levothyroxine [Synthroid] 150 mcg PO DAILY 10/30/17 05/31/19 History melatonin 3 mg PO HS PRN 10/30/17 05/31/19 History omeprazole 20 mg PO DAILY 10/30/17 05/31/19 History zolpidem [Ambien] 10 mg PO HS PRN 10/30/17 05/31/19 History albuterol sulfate 90 mcg/actuation 2 puff INHALATION Q4 PRN #18 gm 01/21/19 05/31/19 Rx aerosol inhaler ipratropium 0.5 mg-albuterol 3 mg 3 ml INHALATION BID PRN #180 ml 01/21/19 05/31/19 Rx (2.5 mg base)/3 mL nebulization soln nebulizer accessories #1 ea 02/13/19 05/31/19 Rx nebulizer and compressor #1 ea 02/13/19 05/31/19 Rx fluticasone furoate 200 1 puffs INH DAILY #28 ea 05/05/19 05/31/19 Rx mcg-vilanterol 25 mcg/dose inhalation powder amlodipine 2.5 mg PO QAM 05/30/19 05/31/19 History baclofen 10 mg PO TID PRN 05/30/19 05/31/19 History calcium acetate(phosphat bind) 667 mg PO UD 05/30/19 05/31/19 History docusate sodium 100 mg PO DAILY 05/30/19 05/31/19 History fluticasone propionate 2 spray INTRANASAL DAILY 05/30/19 05/31/19 History aspirin 81 mg PO DAILY 05/31/19 05/31/19 History Patient History Medical History Arthritis AV fistula LEFT ARM Basal cell carcinoma (BCC) in situ of skin x2 Benign prostatic hyperplasia Chronic GERD COPD (chronic obstructive pulmonary disease) inhaler/nebulizer prn End stage chronic kidney disease On hemodialysis GERD (gastroesophageal reflux disease) Hernia Hyperlipidemia Hypertension Hypothyroidism Melanoma of skin On anticoagulant therapy aggrenox Osteoarthritis TIA (transient ischemic attack) (Resolved) 2015--no deficits--on aggrenox Surgical History History of angioplasty 1997 History of colonoscopy History of exploratory laparotomy 11/02/17 History of heart artery stent 1997--2 stents @ [facility] [place] History of Mohs micrographic surgery for skin cancer x3 History of repair of right rotator cuff History of right cataract surgery 06/12/18: was given 2mg of IV versed History of thyroidectomy History of tooth extraction History of total left knee replacement (TKR) History of umbilical hernia repair Hx of cholecystectomy Family History Other No family history of adverse response to anesthesia Social History Preferred Language: Uzbek Communication Ability: Impaired 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 Beliefs That Will Affect Care: None marital status: Current Living Situation: Spouse Feels Safe at Home: Yes Safety Concerns: Feels Safe At This Time Smoking Status: Former smoker Do You Dip or Chew Tobacco: No ; Second Hand Exposure: No ; Tobacco Cessation Education Requested by Patient: No Hx Alcohol Use: Yes Alcohol type: hard liquor Hx Substance Use: No Review of Systems Review of Systems: Unobtainable due to reduced consciousness tells me he is free of pain, no sob before dosing off again Physical Exam Constitutional: well developed, well nourished and average body habitus; no acute distress sleeping soundly on RA; wakens briefly Eyes: EOM intact bilaterally ENMT: Ears: no external ear abnormality Nose: no external nose abnormality Mouth: + dry oral mucous membranes Neck: no nuchal rigidity Respiratory: normal respiratory effort; no respiratory distress and no cough Auscultation: lungs clear to auscultation bilaterally and + diminished lung sounds Cardiovascular: Rate/Rhythm: regular rate and regular rhythm Extremities: + AV fistula (+ t/b); no edema Gastrointestinal (Abdomen): Inspection/Auscultation: + abdomen distended and normal bowel sounds Percussion/Palpation: + abdomen tender (focal LUQ non reproducible TTP) and abdomen soft Musculoskeletal: Extremities: strength 5/5 throughout Skin: no rashes, warm and dry Neurologic: + confused and + obtunded Speech / Cognition: + abnormal cognition pineda, fluent speech, no tremor Genitourinary: lockhart w/ ample dark yellow urine Results & Data Vital Signs (Past 12 Hours) Vital Signs Temp Pulse Pulse Resp BP Pulse Ox 06/01/19 11:18 36.4 C L 60 19 201/78 H 97 06/01/19 08:00 61 06/01/19 07:49 36.4 C L 62 18 163/72 H 96 06/01/19 04:07 36.6 C 61 16 141/73 H 98 Laboratory Results 05/31/19 12:15 06/01/19 06:41 Diagnostic Findings MRI Brain > no acute process CXR mild plm vasc congestion KUB > no obstruction, ?mild ileus (1) AMS (altered mental status) Altered mental status type: transient alteration of awareness Qualified Code(s): R40.4 - Transient alteration of awareness (2) Hypertension Hypertension type: essential hypertension Qualified Code(s): I10 - Essential (primary) hypertension
[2019-06-01] MEDS: FUROSEMIDE 40 MG in SYRINGE 0 ML IV SCH (15:33)
--- NOTE | 2019-06-01 16:55 | CT Scan Report ---
ABDOMEN AND PELVIS CT WITHOUT CONTRAST CT DOSE: 3164.86 mGy.cm HISTORY: Acute generalized abdominal pain abdominal pain TECHNIQUE: Multiaxial CT images of the abdomen and pelvis were performed without contrast. A dose lo wering technique was utilized adhering to the principles of ALARA. COMPARISON STUDY: CT abdomen and pelvis 11/01/2017 FINDINGS: Bibasilar bronchial wall thickening with mild dependent atelectasis. No pneumatosis or pneumoperitone um. The imaged inferior cardiac chambers are enlarged. Coronary artery calcifications. Limited study without the use of IV contrast. Scattered calcified granulomata of the spleen. Mild generalized pancr eatic atrophy. Unremarkable adrenal glands. Cholecystectomy. Unenhanced liver is unremarkable. Bilateral cortical thinning with numerous bilateral simple and complex renal cysts. These lesions are incompletely characterized without use of IV contrast. A proteinaceous or hemorrhagic cyst on the ri ght measures up to 2.4 cm. Cyst with peripheral calcifications about the superior pole right kidney, 5.7 cm. No ureteral calculi or obstructive uropathy. Prostate is enlarged measuring up to 6.1 cm domínguez sversely. Decompressed urinary bladder with Bolaños catheter in place. Urinary bladder wall thickening is noted. Inflammatory stranding is noted within the central pelvis which appears to be centered arou nd the urinary bladder. This is also noted adjacent to the proximal sigmoid colon. Circumferential wa ll thickening of the proximal sigmoid appears comparison. Colonic diverticulosis. Moderate fecal rete ntion of the rectum with mild perirectal stranding. No bowel obstruction. Noninflamed appendix. Extensive calcified plaque of the abdominal aorta without aneurysm. Mild diastases recti. Degenerativ e changes of the spine and hips. No acute fracture identified. IMPRESSION: 1. Prostamegaly with urinary bladder wall thickening suggestive of chronic bladder outlet obstruction versus cystitis. There is inflammatory stranding within the central pelvis which appears to be cente red around the decompressed urinary bladder. Correlate with urinalysis to exclude cystitis. 2. Colonic diverticulosis. Wall thickening of the proximal sigmoid colon is similar to comparison sug gestive of chronic hypertrophy of the muscularis secondary to chronic diverticular disease. Acute div erticulitis or focal colitis is considered less likely. These findings could be further characterized with a nonemergent follow-up colonoscopy. 3. Moderate fecal retention of the rectum with perirectal stranding suspicious for stercoral proctiti s. 4. No bowel obstruction. 5. Additional findings as above. ACT 112: Negative or not required by law. The above report was generated using voice recognition software. It may contain grammatical, syntax o r spelling errors. Electronically signed by: Emeterio Steen M.D. 06/01/2019 4:54 PM
[2019-06-01] MEDS ORDERED: bisacodyL 10 MG SUPP PR STA (17:11)
[2019-06-01] MEDS: ENALAPRILAT 1.25 MG in DEXTROSE 5% 25 ML IV PRN (18:42)
[2019-06-01] MEDS: EZETIMIBE 10 MG TABLET PO SCH (20:03)
[2019-06-01] MEDS: ATORVASTATIN 40 MG TAB PO SCH (20:03)
[2019-06-02] MEDS: ENALAPRILAT 1.25 MG in DEXTROSE 5% 25 ML IV PRN ×2 (00:36→05:07)
[2019-06-02] MEDS: ACETAMINOPHEN 325 MG TAB PO PRN ×3 (03:49→13:30)
[2019-06-02] MEDS: HydrALAZINE HCL 20 MG/ML VIAL IV PRN (03:49)
[2019-06-02] MEDS: HEPARIN SOD 5,000 UNIT/0.5 ML VIAL SQ SCH ×3 (05:43→21:28)
[2019-06-02] MEDS: LEVOTHYROXINE SODIUM 150 MCG TABLET PO SCH (05:43)
[2019-06-02 06:21] LABS: Hematocrit (blood only) 36.7 % (42-52); Hemoglobin 12.2 g/dL (14.0-18.0); Mean Corpuscular Hemoglobin 31.4 pg (25-34); Mean Corpuscular Hgb Conc 33.2 g/dL (32-36); Mean Corpuscular Volume 94.6 fL (80-100); Mean Platelet Volume 10.9 fL (7.4-10.4); Platelet Count 189 K/uL (130-400); RDW Coefficient of Variation 14.8 % (11.5-14.5); RDW Standard Deviation 50.2 fL (36.4-46.3); Red Blood Count 3.88 M/uL (4.7-6.1); White Blood Count 12.78 K/uL (4.8-10.8)
[2019-06-02] MEDS ORDERED: SODIUM CHLORIDE 0.9% 1000ML 1,000 ML IV PRN (07:00)
[2019-06-02 07:15] LABS: BUN Creatinine Ratio 8.8 (10-20); Bilirubin,Total 1.6 mg/dl (0.2-1); Calcium 9.1 mg/dl (8.5-10.1); Creatinine Clr Calc Pharmacy 9.2 ml/min; Est GFR (African American) 9.5; Est GFR (Non-African American) 8.2; Potassium 3.6 mmol/L (3.5-5.1)
[2019-06-02] MEDS: DUTASTERIDE: ORDER AWAITING ACTION SCH ×2 (08:05→16:06)
[2019-06-02] MEDS: CALCIUM ACETATE 667 MG CAP/TAB PO SCH ×3 (08:10→17:41)
[2019-06-02] MEDS: DOCUSATE SODIUM 100 MG CAP PO SCH (08:11)
[2019-06-02] MEDS: FLUTICASONE/VILANTEROL 200/25MCG 14 PUFFS/INHALER INH SCH (08:11)
[2019-06-02] MEDS: allopurinoL 100 MG TAB PO SCH (08:12)
[2019-06-02] MEDS: PANTOprazole 40 MG TAB PO SCH (08:12)
[2019-06-02] MEDS: FUROSEMIDE 40 MG in SYRINGE 0 ML IV SCH ×2 (13:26→17:12)
[2019-06-02] MEDS: AMLODIPINE BESYLATE 5 MG TAB PO SCH (13:26)
[2019-06-02] MEDS: carvediloL 6.25 MG TAB PO SCH ×2 (13:26→21:25)
--- NOTE | 2019-06-02 14:41 | Nephrology Progress Note ---
Date of Service June 02, 2019 Assessment & Plan (1) ESRD (end stage renal disease) on dialysis: Tolerated dialysis today for net UF 1.8 litres -when taking po, 1.5L FR pls (2) AMS (altered mental status): suspect from baclofen/new med; no concern at this point for infection or arrhythmia but monitoring for same >>>pt prone to constipation/ileus >> ensure appropriate bowel regimen after narcotic exposure (3) Hypertension: Controlled on current regimen -cont CCB and BB Admission and Anticipated Discharge Date Admission Date: May 31, 2019 Subjective Patient complain of pain. He has mild SOB. No leg swelling. Patient seen and examined while on dialysis Review of Systems Review of Systems: All systems reviewed & are unremarkable except as noted in HPI & below Physical Exam Physical Exam: General exam: Appears comfortable, no acute distress HEENT: Pupils are equal and reactive to light Neck: No JVD, neck is supple trachea is midline Respiratory system: Clear breath sounds bilaterally. Gastrointestinal: Abdomen is soft, non distended, non tender, bowel sounds are present CVS: Regular rate and rhythm. No murmurs, rubs or gallops Musculoskeletal: No joint or muscle tenderness Extremities: Non tender, no edema, peripheral pulses are present Neuro: Oriented, no tremors, no focal neurological deficits Skin: No rashes Access: left UA AVF Results & Data ([facility]) Vital Signs (Past 12 Hours) Vital Signs Temp Pulse Pulse Pulse Resp BP BP 06/02/19 13:24 36.4 C L 72 20 125/75 06/02/19 12:59 36.9 C 69 69 134/74 134/74 06/02/19 12:40 70 104/61 06/02/19 12:25 69 96/60 L 06/02/19 12:20 48 L 81/51 L 06/02/19 12:00 73 90/61 L 06/02/19 11:40 72 91/55 L 06/02/19 11:00 74 116/70 06/02/19 10:40 70 122/76 06/02/19 10:20 71 117/76 06/02/19 10:04 78 06/02/19 10:00 72 126/71 06/02/19 09:40 75 132/77 06/02/19 09:20 74 154/83 H 06/02/19 09:12 36.9 C 69 70 163/87 H 06/02/19 05:56 74 150/76 H 06/02/19 04:33 36.6 C 69 18 197/89 H Pulse Ox 06/02/19 13:24 97 06/02/19 12:59 06/02/19 12:40 06/02/19 12:25 06/02/19 12:20 06/02/19 12:00 06/02/19 11:40 06/02/19 11:00 06/02/19 10:40 06/02/19 10:20 06/02/19 10:04 06/02/19 10:00 06/02/19 09:40 06/02/19 09:20 06/02/19 09:12 06/02/19 05:56 06/02/19 04:33 94 Laboratory Results 06/02/19 05:45 06/02/19 06/02/19 05:45 05:45 WBC 12.78 H RBC 3.88 L MCV 94.6 MCH 31.4 MCHC 33.2 RDW Std Deviation 50.2 H RDW Coeff of Ed 14.8 H Plt Count 189 MPV 10.9 H Albumin 3.0 L (1) AMS (altered mental status) Altered mental status type: transient alteration of awareness Qualified Code(s): R40.4 - Transient alteration of awareness (2) Hypertension Hypertension type: essential hypertension Qualified Code(s): I10 - Essential (primary) hypertension
--- NOTE | 2019-06-02 15:45 | Hospitalist Progress Note ---
Date of Service June 02, 2019 Assessment & Plan (1) AMS (altered mental status): According to , baseline is AOX3, functional Toxic encephalopathy likely related to medication (baclofen) Other possibility is hypertensive encephalopathy Infection/Sepsis is less likely considering history, no leukocytosis or fevers, lactate is normal. Does not have a history of seizure disorder EKG shows sinus bradycardia with rate of 57, no ST-T changes Troponin is negative Electrolytes are unremarkable CT head did not show any acute hemorrhage/infarct/abnormality MRI brain did not show any acute abnormality Altered mental status is resolved now Continue to monitor neurological status Avoid all sedatives. 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 recommendations appreciated (4) COPD (chronic obstructive pulmonary disease): Stable Continue home inhalers (5) Hypothyroid: Continue home levothyroxine TSH yesterday was 0.409 and 0.291 on 05/30/19 and 05/31/2019 respectively (unclear repeat) FT4 normal (6) CAD (coronary artery disease): H/O of CAD reports h/o PCI in 1996 Continue aspirin, statin (7) Chronic diastolic heart failure: Currently euvolemic Continue coreg Monitor BP Continue lasix (8) DVT prophylaxis: Hep sq Called and updated her about patient's current status and plans PT/OT eval Admission and Anticipated Discharge Date Admission Date: May 31, 2019 Subjective Patient seen and examined Patient had HD earlier today Currently patient is completely awake and alert Oriented to person, place, month and year, able to tell me about his visit to PCP and ortho on Stated he cannot remember much of anything else till this morning His only complaints today is shoulder pain Denied any headaches, dizziness Denied fevers, chills Denied nausea, vomiting, abd pain, diarrhea,constipation, bloody stool Denied any dysuria, frequency, urgeny Physical Exam Constitutional: + well hydrated; no acute distress Elderly man Eyes: PERRL, conjunctivae normal, anicteric sclerae ENMT: external ear and nose normal, oropharynx normal Respiratory: normal respiratory effort, lungs clear to auscultation Cardiovascular: Rate/Rhythm: regular rate and regular rhythm Extremities: no pedal edema Gastrointestinal (Abdomen): normal bowel sounds, soft, nontender, no hepatosplenomegaly Musculoskeletal: Normal ROM passive and active in both shoulders. No tenderness on palpation Neurologic: PERRL, EOMI, accommodation nl, no face palsy, no dysarthria moves all extremities; no focal motor deficits Alert and oriented to person, place, month and year Psychiatric: A+Ox3, euthymic affect Results & Data Results & Data ([facility]) Vital Signs (Past 12 Hours) Vital Signs Temp Pulse Pulse Pulse Resp BP BP 06/02/19 13:24 36.4 C L 72 20 125/75 06/02/19 12:59 36.9 C 69 69 134/74 134/74 06/02/19 12:40 70 104/61 06/02/19 12:25 69 96/60 L 06/02/19 12:20 48 L 81/51 L 06/02/19 12:00 73 90/61 L 06/02/19 11:40 72 91/55 L 06/02/19 11:00 74 116/70 06/02/19 10:40 70 122/76 06/02/19 10:20 71 117/76 06/02/19 10:04 78 06/02/19 10:00 72 126/71 06/02/19 09:40 75 132/77 06/02/19 09:20 74 154/83 H 06/02/19 09:12 36.9 C 69 70 163/87 H 06/02/19 05:56 74 150/76 H 06/02/19 04:33 36.6 C 69 18 197/89 H Pulse Ox 06/02/19 13:24 97 06/02/19 12:59 06/02/19 12:40 06/02/19 12:25 06/02/19 12:20 06/02/19 12:00 06/02/19 11:40 06/02/19 11:00 06/02/19 10:40 06/02/19 10:20 06/02/19 10:04 06/02/19 10:00 06/02/19 09:40 06/02/19 09:20 06/02/19 09:12 06/02/19 05:56 06/02/19 04:33 94 Laboratory Results Laboratory Results - last 24 hr 06/02/19 06/02/19 05:45 05:45 WBC 12.78 H RBC 3.88 L Hgb 12.2 L Hct 36.7 L MCV 94.6 MCH 31.4 MCHC 33.2 RDW Std Deviation 50.2 H RDW Coeff of Ed 14.8 H Plt Count 189 MPV 10.9 H Sodium 142 Potassium 3.6 Chloride 112 H Carbon Dioxide 24 Anion Gap 6.0 BUN 52 H Creatinine 5.86 H* D Est Cr Clr Drug Dosing 9.2 Est GFR ( Amer) 9.5 Est GFR (Non-Af Amer) 8.2 BUN/Creatinine Ratio 8.8 L Glucose 140 H Calcium 9.1 Total Bilirubin 1.6 H AST 22 ALT 23 Alkaline Phosphatase 48 Total Protein 6.0 L Albumin 3.0 L Globulin 3.0 Albumin/Globulin Ratio 1.0 (1) AMS (altered mental status) Altered mental status type: transient alteration of awareness Qualified Code(s): R40.4 - Transient alteration of awareness (2) Hypertension Hypertension type: essential hypertension Qualified Code(s): I10 - Essential (primary) hypertension
[2019-06-02] MEDS: EZETIMIBE 10 MG TABLET PO SCH (21:27)
[2019-06-02] MEDS: ATORVASTATIN 40 MG TAB PO SCH (21:27)
[2019-06-03] MEDS: DUTASTERIDE: ORDER AWAITING ACTION SCH ×3 (01:00→17:03)
[2019-06-03] MEDS: LEVOTHYROXINE SODIUM 150 MCG TABLET PO SCH (06:04)
[2019-06-03] MEDS: HEPARIN SOD 5,000 UNIT/0.5 ML VIAL SQ SCH ×3 (06:04→21:43)
[2019-06-03 07:18] LABS: Hematocrit (blood only) 37.6 % (42-52); Hemoglobin 12.6 g/dL (14.0-18.0); Mean Corpuscular Hemoglobin 31.7 pg (25-34); Mean Corpuscular Hgb Conc 33.5 g/dL (32-36); Mean Corpuscular Volume 94.5 fL (80-100); Mean Platelet Volume 10.7 fL (7.4-10.4); Platelet Count 189 K/uL (130-400); RDW Coefficient of Variation 15.1 % (11.5-14.5); RDW Standard Deviation 51.5 fL (36.4-46.3); Red Blood Count 3.98 M/uL (4.7-6.1); White Blood Count 12.49 K/uL (4.8-10.8)
[2019-06-03 08:01] LABS: BUN Creatinine Ratio 5.8 (10-20); Calcium 9.2 mg/dl (8.5-10.1); Creatinine Clr Calc Pharmacy 11.4 ml/min; Est GFR (African American) 12.2; Est GFR (Non-African American) 10.5; Potassium 3.9 mmol/L (3.5-5.1)
[2019-06-03] MEDS: FUROSEMIDE 40 MG in SYRINGE 0 ML IV SCH (08:28)
[2019-06-03] MEDS: allopurinoL 100 MG TAB PO SCH (08:29)
[2019-06-03] MEDS: PANTOprazole 40 MG TAB PO SCH (08:29)
[2019-06-03] MEDS: AMLODIPINE BESYLATE 5 MG TAB PO SCH (08:29)
[2019-06-03] MEDS: carvediloL 6.25 MG TAB PO SCH (08:29)
[2019-06-03] MEDS: DOCUSATE SODIUM 100 MG CAP PO SCH (08:29)
[2019-06-03] MEDS: FLUTICASONE/VILANTEROL 200/25MCG 14 PUFFS/INHALER INH SCH (08:30)
[2019-06-03] MEDS: CALCIUM ACETATE 667 MG CAP/TAB PO SCH ×3 (08:30→17:03)
--- NOTE | 2019-06-03 10:06 | Nephrology Progress Note ---
Date of Service June 03, 2019 Assessment & Plan (1) ESRD (end stage renal disease) on dialysis: Tolerated dialysis on 06/02/2019 for net UF 1.8 litres. Electrolytes are stable and no signs of volume overload. No indication for dialysis today. Next dialysis will be tomorrow. -when taking po, 1.5L FR pls (2) AMS (altered mental status): suspect from baclofen/new med; mental status has improved. From renal standpoint patient can be discharged. Should avoid baclofen no other psychoactive medications. (3) Hypertension: Controlled on current regimen -cont CCB and BB Admission and Anticipated Discharge Date Admission Date: May 31, 2019 Subjective Patient feels better today. He is complaining of pain at an IV site in the right arm. No shortness of breath. He tolerated dialysis well yesterday. Review of Systems Review of Systems: All systems reviewed & are unremarkable except as noted in HPI & below Physical Exam Physical Exam: General exam: Appears comfortable, no acute distress HEENT: Pupils are equal and reactive to light Neck: No JVD, neck is supple trachea is midline Respiratory system: Clear breath sounds bilaterally. Gastrointestinal: Abdomen is soft, non distended, non tender, bowel sounds are present CVS: Regular rate and rhythm. No murmurs, rubs or gallops Musculoskeletal: No joint or muscle tenderness Extremities: Non tender, no edema, peripheral pulses are present Neuro: Oriented, no tremors, no focal neurological deficits Skin: No rashes Access: Left upper arm AV fistula with good bruit Results & Data ([facility]) Vital Signs (Past 12 Hours) Vital Signs Temp Pulse Resp BP Pulse Ox 06/03/19 08:00 36.6 C 67 20 106/67 100 06/03/19 03:12 36.6 C 69 18 99/62 L 95 06/02/19 22:53 36.8 C 63 16 110/69 94 Laboratory Results 06/03/19 06:56 06/03/19 06:56 WBC 12.49 H RBC 3.98 L MCV 94.5 MCH 31.7 MCHC 33.5 RDW Std Deviation 51.5 H RDW Coeff of Ed 15.1 H Plt Count 189 MPV 10.7 H (1) AMS (altered mental status) Altered mental status type: transient alteration of awareness Qualified Code(s): R40.4 - Transient alteration of awareness (2) Hypertension Hypertension type: essential hypertension Qualified Code(s): I10 - Essential (primary) hypertension
--- NOTE | 2019-06-03 12:04 | Hospitalist Progress Note ---
Date of Service June 03, 2019 Assessment & Plan (1) AMS (altered mental status): According to , baseline is AOX3, functional Toxic encephalopathy likely related to medication (baclofen) Other possibility is hypertensive encephalopathy Infection/Sepsis is less likely considering history, no leukocytosis or fevers, lactate is normal. Does not have a history of seizure disorder EKG on admission shows sinus bradycardia with rate of 57, no ST-T changes Troponin is negative Electrolytes are unremarkable CT head did not show any acute hemorrhage/infarct/abnormality MRI brain did not show any acute abnormality Altered mental status is resolved now Continue to monitor neurological status Avoid all sedatives. BP has been running low to low normal All antihypertensive and diuretics suspended. Will monitor for now. If needed will give cautious IVF considering he is ESRD and has chronic diastolic failure Plan to discuss with nephrology tomorrow to minimize fluid removal during HD to see if that helps (2) Hypertension: BP currently better controlled Hypotensive episodes for now All antihypertensives suspended. 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 (4) COPD (chronic obstructive pulmonary disease): Stable Continue home inhalers (5) Hypothyroid: Continue home levothyroxine TSH yesterday was 0.409 and 0.291 on 05/30/19 and 05/31/2019 respectively (unclear repeat) FT4 normal (6) CAD (coronary artery disease): H/O of CAD reports h/o PCI in 1996 Continue aspirin, statin (7) Chronic diastolic heart failure: Currently euvolemic Continue coreg Monitor BP Lasix held for now (8) DVT prophylaxis: Hep sq Called and updated her about patient's current status and plans PT/OT erical noted Admission and Anticipated Discharge Date Admission Date: May 31, 2019 Subjective Patient was seen and examined this morning while getting physical therapy evaluation. Patient reports that dizziness on standing during the evaluation blood pressure did drop from systolic of 106/67 sitting to 89/53 standing Dizziness resolved shortly after sitting back down. Denies any headache, shortness of breath, cough, chest pain Denies any fevers, chills, nausea vomiting Denies any abdominal pain diarrhea Physical Exam Constitutional: + well hydrated; no acute distress Eyes: PERRL, conjunctivae normal, anicteric sclerae ENMT: external ear and nose normal, oropharynx normal Respiratory: normal respiratory effort, lungs clear to auscultation no respiratory distress Cardiovascular: Rate/Rhythm: regular rate and regular rhythm Extremities: no pedal edema Gastrointestinal (Abdomen): normal bowel sounds, soft, nontender, no hepatosplenomegaly Percussion/Palpation: abdomen soft Neurologic: PERRL, EOMI, accommodation nl, no face palsy, no dysarthria moves all extremities; no focal motor deficits Psychiatric: Orientation: alert oriented to person, place and date Moves all extremities Genitourinary: no CVA tenderness Results & Data Results & Data ([facility]) Vital Signs (Past 12 Hours) Vital Signs Temp Pulse Resp BP Pulse Ox 06/03/19 08:00 36.6 C 67 20 106/67 100 06/03/19 03:12 36.6 C 69 18 99/62 L 95 Laboratory Results Laboratory Results - last 24 hr 06/03/19 06/03/19 06:56 06:56 WBC 12.49 H RBC 3.98 L Hgb 12.6 L Hct 37.6 L MCV 94.5 MCH 31.7 MCHC 33.5 RDW Std Deviation 51.5 H RDW Coeff of Ed 15.1 H Plt Count 189 MPV 10.7 H Sodium 136 Potassium 3.9 Chloride 102 Carbon Dioxide 29 Anion Gap 5.0 BUN 28 H Creatinine 4.75 H* D Est Cr Clr Drug Dosing 11.4 Est GFR ( Amer) 12.2 Est GFR (Non-Af Amer) 10.5 BUN/Creatinine Ratio 5.8 L Glucose 139 H Calcium 9.2 (1) AMS (altered mental status) Altered mental status type: transient alteration of awareness Qualified Code(s): R40.4 - Transient alteration of awareness (2) Hypertension Hypertension type: essential hypertension Qualified Code(s): I10 - Essential (primary) hypertension
[2019-06-03] MEDS ORDERED: SODIUM CHLORIDE 0.9% 1000ML 500 ML IV ONE (16:20)
[2019-06-03] MEDS: EZETIMIBE 10 MG TABLET PO SCH (21:41)
[2019-06-03] MEDS: ATORVASTATIN 40 MG TAB PO SCH (21:41)
[2019-06-04] MEDS: DUTASTERIDE: ORDER AWAITING ACTION SCH ×4 (06:05→22:26)
[2019-06-04] MEDS: LEVOTHYROXINE SODIUM 150 MCG TABLET PO SCH (06:08)
[2019-06-04] MEDS: HEPARIN SOD 5,000 UNIT/0.5 ML VIAL SQ SCH ×3 (06:09→21:38)
[2019-06-04 06:30] LABS: Hematocrit (blood only) 35.3 % (42-52); Hemoglobin 11.5 g/dL (14.0-18.0); Mean Corpuscular Hemoglobin 31.3 pg (25-34); Mean Corpuscular Hgb Conc 32.6 g/dL (32-36); Mean Corpuscular Volume 95.9 fL (80-100); Mean Platelet Volume 10.3 fL (7.4-10.4); Platelet Count 158 K/uL (130-400); RDW Coefficient of Variation 15.1 % (11.5-14.5); RDW Standard Deviation 52.7 fL (36.4-46.3); Red Blood Count 3.68 M/uL (4.7-6.1); White Blood Count 10.89 K/uL (4.8-10.8)
[2019-06-04 07:05] LABS: BUN Creatinine Ratio 6.8 (10-20); Creatinine Clr Calc Pharmacy 8.2 ml/min; Est GFR (African American) 8.2; Est GFR (Non-African American) 7.1; Potassium 3.9 mmol/L (3.5-5.1)
[2019-06-04] MEDS: allopurinoL 100 MG TAB PO SCH (08:17)
[2019-06-04] MEDS: CALCIUM ACETATE 667 MG CAP/TAB PO SCH ×3 (08:18→17:25)
[2019-06-04] MEDS: FLUTICASONE/VILANTEROL 200/25MCG 14 PUFFS/INHALER INH SCH (08:19)
[2019-06-04] MEDS: DOCUSATE SODIUM 100 MG CAP PO SCH (08:19)
[2019-06-04] MEDS: PANTOprazole 40 MG TAB PO SCH (08:19)
[2019-06-04] MEDS ORDERED: SODIUM CHLORIDE 0.9% 1000ML 1,000 ML IV PRN (09:10)
[2019-06-04] MEDS ORDERED: HEPARIN SOD (PORCINE) 1000 UNIT/ML 10 ML VIAL IV SCH (09:15)
--- NOTE | 2019-06-04 10:28 | Nephrology Progress Note ---
Date of Service June 04, 2019 Assessment & Plan (1) ESRD (end stage renal disease) on dialysis: Tolerated dialysis on 06/02/2019 for net UF 1.8 litres. Electrolytes are stable and no signs of volume overload. He is tolerating HD well today. Next HD sunday -Patient can be discharged after HD today. (2) AMS (altered mental status): suspect from baclofen/new med; mental status has improved. From renal standpoint patient can be discharged. Should avoid baclofen no other psychoactive medications. (3) Hypertension: Controlled on current regimen -cont CCB and BB Admission and Anticipated Discharge Date Admission Date: May 31, 2019 Subjective Feels better. No SOB. patient seen and examined while on dialysis. BP is on the lower side. he is under TW Review of Systems Review of Systems: All systems reviewed & are unremarkable except as noted in HPI & below Physical Exam Physical Exam: General exam: Appears comfortable, no acute distress HEENT: Pupils are equal and reactive to light Neck: No JVD, neck is supple trachea is midline Respiratory system: Clear breath sounds bilaterally. Gastrointestinal: Abdomen is soft, non distended, non tender, bowel sounds are present CVS: Regular rate and rhythm. No murmurs, rubs or gallops Musculoskeletal: No joint or muscle tenderness Extremities: Non tender, no edema, peripheral pulses are present Neuro: Oriented, no tremors, no focal neurological deficits Skin: No rashes Access: left UA AVF with good bruit Results & Data ([facility]) Vital Signs (Past 12 Hours) Vital Signs Temp Pulse Pulse Resp BP Pulse Ox 06/04/19 07:23 36.7 C 61 18 104/69 93 06/04/19 07:12 36.7 C 105 H 20 76/44 L 93 06/04/19 04:00 36.8 C 64 18 126/70 96 06/04/19 00:00 36.7 C 64 65 18 135/72 95 Laboratory Results 06/04/19 06:15 06/04/19 06:15 WBC 10.89 H RBC 3.68 L MCV 95.9 MCH 31.3 MCHC 32.6 RDW Std Deviation 52.7 H RDW Coeff of Ed 15.1 H Plt Count 158 MPV 10.3 (1) AMS (altered mental status) Altered mental status type: transient alteration of awareness Qualified Code(s): R40.4 - Transient alteration of awareness (2) Hypertension Hypertension type: essential hypertension Qualified Code(s): I10 - Essential (primary) hypertension
[2019-06-04] MEDS: HEPARIN SOD (PORCINE) 1000 UNIT/ML 10 ML VIAL IV SCH ×2 (11:55→11:56)
--- NOTE | 2019-06-04 16:34 | Hospitalist Progress Note ---
Date of Service June 04, 2019 Assessment & Plan (1) AMS (altered mental status): Toxic encephalopathy Likely related to baclofen Less likely hypertensive encephalopathy CT head:There is no hemorrhage, mass effect, or evidence of acute territorial ischemia by CT criteria. MRI Brain: No acute intracranial abnormality. Blood Cx: Negative to date No obvious source of infection Mental status back to baseline Baclofen discontinued (2) Hypertension: BP Variable Amlodipine, Coreg on hold Monitor BP closely Constipation: Continue bowel regimen (3) ESRD (end stage renal disease) on dialysis: Patient is on HD MWF Got HD today Appreciate Traffic Control Supervisor Input (4) COPD (chronic obstructive pulmonary disease): Stable Continue home inhalers (5) Hypothyroid: Continue home levothyroxine (6) CAD (coronary artery disease): H/O of CAD reports h/o PCI in 1996 Continue aspirin, statin Resume coreg if BP tolerates (7) Chronic diastolic heart failure: Volume status being managed through dialysis Plan to discontinue Lasix upon discharge Continue beta-janice if blood pressure tolerates Monitor volume status (8) DVT prophylaxis: Heparin SQ Code Status Full Code Disposition PT/OT prior to discharge Admission and Anticipated Discharge Date Admission Date: May 31, 2019 Subjective Patient is seen and examined at bedside Plan for hemodialysis today Discussed with nephrology today Blood pressure on lower side this morning Complains of mild dizziness today Denies any chest pain, shortness of breath, nausea, abdominal pain Previous Bolaños to be discontinued Review of Systems Review of Systems: All systems reviewed & are unremarkable except as noted in HPI & below Physical Exam Physical Exam: Physical Exam: Vitals signs as noted above General Appearance:Moderately built and nourished, no apparent distress Head: normocephalic, Atraumatic Eyes: normal inspection, EOMI Neck: supple, Trachea midline Respiratory/Chest: Normal breath sounds, CTA, No accessory muscle use Cardiovascular: S1, S2, +systolic murmur Abdomen/GI:Soft, Non tender, Bowel sounds present Extremities/Musculoskelatal:normal inspection, no edema Neurologic/Psych:AAOX3, grossly no focal neurological deficits Skin: normal color, warm Results & Data Results & Data ([facility]) Vital Signs (Past 12 Hours) Vital Signs Temp Pulse Pulse Pulse Resp BP BP 06/04/19 15:49 36.8 C 69 18 96/62 L 06/04/19 13:50 36.5 C 64 64 141/67 H 141/67 H 06/04/19 13:40 74 90/71 L 06/04/19 13:20 65 110/66 06/04/19 13:00 63 120/72 06/04/19 12:40 67 83/38 L 06/04/19 12:20 64 104/59 L 06/04/19 12:00 63 103/58 L 06/04/19 11:40 65 95/63 L 06/04/19 11:20 64 91/58 L 06/04/19 11:00 63 98/52 L 06/04/19 10:40 65 100/53 L 06/04/19 10:20 69 88/57 L 06/04/19 10:16 36.6 C 58 L 58 L 115/65 06/04/19 07:23 36.7 C 61 18 104/69 06/04/19 07:12 36.7 C 105 H 20 76/44 L Pulse Ox 06/04/19 15:49 95 06/04/19 13:50 06/04/19 13:40 06/04/19 13:20 06/04/19 13:00 06/04/19 12:40 06/04/19 12:20 06/04/19 12:00 06/04/19 11:40 06/04/19 11:20 06/04/19 11:00 06/04/19 10:40 06/04/19 10:20 06/04/19 10:16 06/04/19 07:23 93 06/04/19 07:12 93 Laboratory Results Short CBC 06/04/19 Range/Units 06:15 WBC 10.89 H (4.8-10.8) K/uL Hgb 11.5 L (14.0-18.0) g/dL Hct 35.3 L (42-52) % Plt Count 158 (130-400) K/uL BMP 06/04/19 06:15 Sodium 133 L Potassium 3.9 Chloride 101 Carbon Dioxide 31 BUN 44 H D Creatinine 6.61 H* D Glucose 119 H Calcium 9.0 (1) AMS (altered mental status) Altered mental status type: transient alteration of awareness Qualified Code(s): R40.4 - Transient alteration of awareness (2) Hypertension Hypertension type: essential hypertension Qualified Code(s): I10 - Essential (primary) hypertension
[2019-06-04] MEDS ORDERED: POLYETHYLENE (MIRALAX) 17 GM PACK PO PRN (16:58)
[2019-06-04] MEDS ORDERED: DOCUSATE SODIUM 100 MG CAP PO SCH (21:00)
[2019-06-04] MEDS: ATORVASTATIN 40 MG TAB PO SCH (21:01)
[2019-06-04] MEDS: EZETIMIBE 10 MG TABLET PO SCH (21:02)
[2019-06-05] MEDS: LEVOTHYROXINE SODIUM 150 MCG TABLET PO SCH (06:20)
[2019-06-05] MEDS: HEPARIN SOD 5,000 UNIT/0.5 ML VIAL SQ SCH (06:20)
[2019-06-05] MEDS ORDERED: NURSING DECISION MEDICATION ONE (06:50)
[2019-06-05] MEDS ORDERED: ARTIFICIAL TEARS OP OINT 3.5 GM TUBE OP PRN (07:00)
[2019-06-05] MEDS: DUTASTERIDE: ORDER AWAITING ACTION SCH (07:37)
[2019-06-05] MEDS: PANTOprazole 40 MG TAB PO SCH (07:38)
[2019-06-05] MEDS: allopurinoL 100 MG TAB PO SCH (07:38)
[2019-06-05] MEDS: CALCIUM ACETATE 667 MG CAP/TAB PO SCH ×2 (07:38→11:56)
[2019-06-05] MEDS: DOCUSATE SODIUM 100 MG CAP PO SCH (07:38)
[2019-06-05] MEDS: FLUTICASONE/VILANTEROL 200/25MCG 14 PUFFS/INHALER INH SCH (07:39)
--- NOTE | 2019-06-05 09:39 | Nephrology Progress Note ---
Date of Service June 05, 2019 Assessment & Plan (1) ESRD (end stage renal disease) on dialysis: Tolerated dialysis on 06/02/2019 for net UF 1.8 litres and 06/04/2019 with no UF as patient was under dry weight. Electrolytes are stable and no signs of volume overload. No indication for HD today. Next HD sunday -Patient can be discharged today. -Case discussed with Dr. Craven (2) AMS (altered mental status): suspect from baclofen/new med; mental status has improved. From renal standpoint patient can be discharged. Should avoid baclofen no other psychoactive medications. (3) Hypertension: BP has been low. Recommend stopping amlodipine. Reduce Coreg to 3.125 mg twice daily. BP meds can be adjusted in the dialysis unit after discharge. Admission and Anticipated Discharge Date Admission Date: May 31, 2019 Subjective Patient feels better today. He had dialysis yesterday with no UF. His blood pressure has been on the lower side. No shortness of breath. He did PT after dialysis yesterday. He is eager to be discharged home. Review of Systems Review of Systems: All systems reviewed & are unremarkable except as noted in HPI & below Physical Exam Physical Exam: General exam: Appears comfortable, no acute distress HEENT: Pupils are equal and reactive to light Neck: No JVD, neck is supple trachea is midline Respiratory system: Clear breath sounds bilaterally. Gastrointestinal: Abdomen is soft, non distended, non tender, bowel sounds are present CVS: Regular rate and rhythm. No murmurs, rubs or gallops Musculoskeletal: No joint or muscle tenderness Extremities: Non tender, no edema, peripheral pulses are present Neuro: Oriented, no tremors, no focal neurological deficits Skin: No rashes Access: Left upper arm AV fistula with good bruit Results & Data ([facility]) Vital Signs (Past 12 Hours) Vital Signs Temp Pulse Resp BP Pulse Ox 06/05/19 07:19 36.6 C 61 20 124/70 96 06/05/19 03:17 37.2 C 60 16 118/69 95 06/04/19 23:09 36.9 C 68 18 128/73 94 Laboratory Results 06/04/19 06:15 (1) AMS (altered mental status) Altered mental status type: transient alteration of awareness Qualified Code(s): R40.4 - Transient alteration of awareness (2) Hypertension Hypertension type: essential hypertension Qualified Code(s): I10 - Essential (primary) hypertension
[2019-06-05] MEDS ORDERED: carvediloL 3.125 MG TAB PO SCH (10:00)
--- NOTE | 2019-06-05 11:28 | Hospitalist Progress Note ---
Date of Service June 05, 2019 Assessment & Plan (1) AMS (altered mental status): Toxic encephalopathy Likely related to baclofen Less likely hypertensive encephalopathy CT head:There is no hemorrhage, mass effect, or evidence of acute territorial ischemia by CT criteria. MRI Brain: No acute intracranial abnormality. Blood Cx: Negative to date No obvious source of infection Mental status back to baseline Baclofen discontinued (2) Hypertension: BP relatively low Amlodipine Discontinued Coreg decreased to 3.125mg BID Monitor BP Constipation: Continue bowel regimen (3) ESRD (end stage renal disease) on dialysis: Patient is on HD MWF Had hemodialysis yesterday Appreciate Automotive Painter Input (4) COPD (chronic obstructive pulmonary disease): Stable Continue home inhalers (5) Hypothyroid: Continue home levothyroxine (6) CAD (coronary artery disease): H/O of CAD reports h/o PCI in 1996 Continue aspirin, statin Resumed coreg at lower dose (7) Chronic diastolic heart failure: Volume status being managed through dialysis Plan to discontinue Lasix upon discharge Continue beta-janice Monitor volume status (8) DVT prophylaxis: Heparin SQ Code Status Full Code Disposition Plan to discharge home today Admission and Anticipated Discharge Date Admission Date: May 31, 2019 Subjective Patient is seen and examined at bedside Doing well today States dizziness resolved Offers no complaints Eager to get discharged Discussed with nephrology today as well Denies any chest pain, shortness of breath, nausea, abdominal pain Review of Systems Review of Systems: All systems reviewed & are unremarkable except as noted in HPI & below Physical Exam Physical Exam: Physical Exam: Vitals signs as noted above General Appearance:Moderately built and nourished, no apparent distress Head: normocephalic, Atraumatic Eyes: normal inspection, EOMI Neck: supple, Trachea midline Respiratory/Chest: Normal breath sounds, CTA, No accessory muscle use Cardiovascular: S1, S2, +systolic murmur Abdomen/GI:Soft, Non tender, Bowel sounds present Extremities/Musculoskelatal:normal inspection, no edema Neurologic/Psych:AAOX3, grossly no focal neurological deficits Skin: normal color, warm Results & Data Results & Data ([facility]) Vital Signs (Past 12 Hours) Vital Signs Temp Pulse Resp BP Pulse Ox 06/05/19 10:57 36.6 C 63 18 106/68 97 06/05/19 07:19 36.6 C 61 20 124/70 96 06/05/19 03:17 37.2 C 60 16 118/69 95 (1) AMS (altered mental status) Altered mental status type: transient alteration of awareness Qualified Code(s): R40.4 - Transient alteration of awareness (2) Hypertension Hypertension type: essential hypertension Qualified Code(s): I10 - Essential (primary) hypertension
--- NOTE | 2019-06-05 11:47 | Discharge Summary ---
Date of Service June 05, 2019 Admission HPI Per Admitting Provider 83-year-old man with history of coronary artery disease, diastolic heart failure, end-stage renal disease on hemodialysis Sunday, COPD, BPH, hypothyroidism, gallops, reflux esophagitis who presented to the emergency room for altered mental status. History obtained from over the phone and ER chart review. According to , patient symptoms started yesterday evening after dinner. Had his HD earlier that day without incident.Patient started complaining of feeling unwell and some abdominal discomfort. Had a syncopal episode that lasted a few minutes, after which he was confused and was brought to the ER. Patient was evaluated in ER and discharged home yesterday night. says reported that he was fine when he came back from the emergency room. However, this morning she noticed that patient was very weak and lethargic, not able to sit up or walk around supporting himself and was confused. Not able to hold conversation or answer appropriately. No reported slurred speech or facial deviation. No noted focal weakness No reported seizure activity Per , Patient has not had any fevers, cough, shortness of breath, chest pain No reported history of falls or head trauma No dysuria, frequency, urgency according to . No sick contacts or recent travel Has been having right shoulder pain for which he was seen by PCP and orthopedic doctor 2 days ago. He got TP injections of lidocaine per EPIC chart review and was started on baclofen 10mg prn muscle spasm. He started taking the medication the night prior to onset of symptoms. In ER, patient's blood pressure was 193/81 on admission. During my evaluation, BP at the time was 137/72, HR 62, RR 10 Patient is laying quietly in bed, awakens to call, able to tell me his name but not able to answer any other questions, intermittently closing his eyes. Occasionally follows simple commands Admission Exam Per Admitting Provider Physical Exam Constitutional: + well hydrated; no acute distress Elderly man in no obvious distress Opens eye to call. Oriented to person only Eyes: PERRL, conjunctivae normal, anicteric sclerae ENMT: external ear and nose normal, oropharynx normal Respiratory: normal respiratory effort, lungs clear to auscultation Cardiovascular: Rate/Rhythm: regular rate and regular rhythm Extremities: no pedal edema S1 S2 Gastrointestinal (Abdomen): normal bowel sounds, soft, nontender, no hepatosplenomegaly Neurologic: PERRL, EOMI, accommodation nl, no face palsy, no dysarthria Laying quietly in bed Opens eye to call. Oriented to person only Moves all extremities spontaneously Occasionally follows simple commands Psychiatric: Opens eye to call. Oriented to person only Genitourinary: no CVA tenderness Principal Diagnosis Toxic encephalopathy End-stage renal disease Discharge Data Allergies Allergy/AdvReac Type Severity Reaction Status Date / Time No Known Allergies Allergy Verified 05/30/19 21:09 Consultations 05/31/19 13:51 ED Decision to Admit Stat 05/31/19 15:52 Consult Case Management - Discharge Planning Routine 05/31/19 18:46 Consult Nephrology Routine Procedures Performed CT head:There is no hemorrhage, mass effect, or evidence of acute territorial ischemia by CT criteria. Ordered Studies 05/31/19 12:09 CT head/brain wo con Stat 05/31/19 15:52 MR brain wo con Urgent 05/31/19 22:43 CT abd pelvis wo con Urgent Hospital Course (1) AMS (altered mental status): Toxic encephalopathy Likely related to baclofen Less likely hypertensive encephalopathy CT head:There is no hemorrhage, mass effect, or evidence of acute territorial ischemia by CT criteria. MRI Brain: No acute intracranial abnormality. Blood Cx: Negative to date No obvious source of infection Mental status back to baseline Baclofen discontinued (2) Hypertension: BP relatively low Amlodipine Discontinued Coreg decreased to 3.125mg BID Monitor BP Constipation: Continue bowel regimen (3) ESRD (end stage renal disease) on dialysis: Patient is on HD MWF Had hemodialysis yesterday Appreciate Rn Wound Input (4) COPD (chronic obstructive pulmonary disease): Stable Continue home inhalers (5) Hypothyroid: Continue home levothyroxine (6) CAD (coronary artery disease): H/O of CAD reports h/o PCI in 1996 Continue aspirin, statin Resumed coreg at lower dose (7) Chronic diastolic heart failure: Volume status being managed through dialysis Plan to discontinue Lasix upon discharge Continue beta-janice Monitor volume status (8) DVT prophylaxis: Heparin SQ Code Status Full Code Disposition Plan to discharge home today Total Time Total Time Spent Total Time Spent (In Minutes): 38 minutes Total Time Includes: Examination of the Patient, Discharge Planning, Medication Reconciliation, Communication With Other Providers and Other Discharge Plan Discharge Items Patient Disposition: Home - Home Health Services Reason For Visit: ALTERED MENTAL STATUS Discharge Diagnosis: Toxic encephalopathy End-stage renal disease Activity: Resume your previous activity Exercise/Sports: Gradually increase as tolerated Non-emergency contact: Primary Care Provider and Rn Wound Call non-emergency contact if: you have any medication questions, your symptoms worsen, your pain is not controlled, your pain is worsening, your pain is unusual for you, your pain is concerning for you and you have a fever Follow-up/Referrals: Rick Rosado MD [Primary Care Provider] - 06/11/19 11:20 am Diet: Dialysis Renal Addtl Attending Provider Instructions: Mr Anderson. You were brought to the hospital for confusion. This was started after you started taking a new medication called baclofen. Evaluation did not show any stroke or infection. Your confusion has resolved Please do not take this medication any more for now. Avoid narcotic pain medications. Please continue to follow up with your Primary doctor and kidney doctors. It was a pleasure taking care of you Follow up with your primary care physician Dr. Rosado in 1 week Follow-up with your resident service coordinator for hemodialysis and blood pressure medication adjustment Seek immediate medical attention if your symptoms reoccur or worsen Medication Changes: Discontinued medications: Amlodipine, furosemide, baclofen Dose change: Carvedilol is decreased to 3.125 mg twice a day Pending Studies at Discharge: No Stand-Alone Forms: My [facility] [email or web address], Smoking Cessation Medications and DC Order Prescriptions: New polyethylene glycol 3350 [Miralax] 17 gram Powder In Packet 17 g PO DAILY PRN (Reason: constipation) Qty: 30 RF: 0 carvedilol 3.125 mg Tablet 3.125 mg PO BID Qty: 60 RF: 1 Continued (DME) nebulizer and compressor device See Rx Instructions [id number] .MEDSUPPLY Qty: 1 RF: 0 (DME) nebulizer accessories kit See Rx Instructions .ROUTE .MEDSUPPLY Qty: 1 RF: 0 Breo Ellipta 200-25 mcg/dose blister with device 1 puffs INH DAILY Qty: 28 RF: 5 albuterol sulfate [ProAir HFA] 90 mcg/actuation HFA aerosol inhaler 2 puff Inhalation Q4 PRN (Reason: Shortness Of Breath Or Wheezing) Qty: 18 RF: 5 ipratropium-albuterol 0.5 mg-3 mg(2.5 mg base)/3 mL solution for nebulization 3 ml INHALATION BID PRN (Reason: Shortness Of Breath Or Wheezing) Qty: 180 RF: 5 atorvastatin [Lipitor] 80 mg tablet 80 mg PO HS RF: 0 melatonin 3 mg Tablet 3 mg PO HS PRN (Reason: Sleep) RF: 0 allopurinol [Zyloprim] 100 mg tablet 100 mg PO DAILY RF: 0 levothyroxine [Synthroid] 150 mcg tablet 150 mcg PO DAILY RF: 0 omeprazole 20 mg capsule,delayed release(DR/EC) 20 mg PO DAILY RF: 0 zolpidem [Ambien] 10 mg tablet 10 mg PO HS PRN (Reason: Sleep) RF: 0 dutasteride [Avodart] 0.5 mg capsule 0.5 mg PO DAILY RF: 0 ezetimibe [Zetia] 10 mg tablet 10 mg PO QPM RF: 0 calcium acetate(phosphat bind) 667 mg capsule 667 mg PO UD RF: 0 docusate sodium 100 mg Capsule 100 mg PO DAILY RF: 0 fluticasone propionate 50 mcg/actuation [place],Suspension 2 spray INTRANASAL DAILY RF: 0 aspirin 81 mg Tablet,Delayed Release (Dr/Ec) 81 mg PO DAILY RF: 0 Discontinued furosemide [Lasix] 40 mg tablet 40 mg PO BID RF: 0 carvedilol [Coreg] 6.25 mg tablet 6.25 mg PO BID RF: 0 amlodipine 2.5 mg tablet 2.5 mg PO QAM RF: 0 baclofen 10 mg tablet 10 mg PO TID PRN (Reason: Muscle Spasm) RF: 0 Discharge Orders: Discharge Order (Routine); Ordered 06/05/19 Ordered By: Tucker Craven Admission Data Admit Date/Time: 05/31/19 15:17 Attending Provider: Tucker Craven Admit Provider: Coty Watkins I. Primary Care Provider: Rick Rosado Other Providers: Coty Watkins I. ; Mulu Hanks ; [facility] Other Interventions: Discharge Summary Assessment (RN) Last Done: 06/05/19 11:50 DC Date/Time DO NOT enter until pt leaves facility: 06/05/19 13:23
== END 2019-06-05 13:23 | disposition home health service (06) | DRG 91 ==
LOC: ED 11:58 → 2S 15:17 → SUATTDRO 15:17 → 2S 15:31

== ENCOUNTER 2024-11-03 07:51 | Observation (INO) ==
[2024-11-03 08:20] LABS: Base Excess VBG 1.2 mEq/L; HCO3 VBG 27 mmol/L; Oxygen Saturation VBG < 60.0 %; PCO2 VBG 45 mmHg (38-50); PO2 VBG 30 mmHg; pH VBG 7.38 (7.36-7.41)
--- NOTE | 2024-11-03 08:23 | Emergency Department Note ---
Impression & Plan Acute blood loss anemia, LGI bleed, ESRD on hemodialysis, Internal and external bleeding hemorrhoids ED Provider Note NAME: BOBBY KEARNEY AGE: 89 SEX: M : 1935 ARRIVES VIA: Walk-In INFORMANT: Patient, ED PROVIDER(S): Santiago Kulkarni DO CHIEF COMPLAINT: rectal bleeding HPI: This is a 89-year-old male with the PMHx of ESRD on HD MWF, HTN, CAD, CHF, hypothyroidism, BPH w LUTS, OA and DDD presenting to [facility] for further evaluation of LGIB. Patient is accompanied by his who provide additional history. No anticoagulation besides low-dose aspirin use. He states that this has happened to him before. He states that he had a procedure with GI and it resolved. He is very upset with evaluation and discharge this weekend. They deny fever or chills. No cough or congestion. Denies chest pain or palpitations. No shortness of breath. They deny abdominal pain, nausea and vomiting. No urinary complaints. No recent changes in bowel movements. Patient denies recent changes in medications or OTC supplements. Patient offers no other complaints, today. ADDITIONAL HISTORY OBTAINED: Per HPI Chronic Medical/Social Conditions Affecting Care: Per HPI PAST MEDICAL HISTORY: See Below PAST SURGICAL HISTORY: See Below FAMILY HISTORY: See Below SOCIAL HISTORY: See Below HOME MEDICATIONS: See Below ALLERGIES: See Below VITALS: See Below PHYSICAL EXAMINATION: GENERAL: Sitting up in bed, alert, well appearing, well nourished, no distress, non-toxic EYE EXAM: normal conjunctiva. OROPHARYNX: no exudate, no erythema, lips, buccal mucosa, and tongue normal and mucous membranes are moist NECK: supple, no nuchal rigidity, no adenopathy, non-tender LUNGS: Clear to auscultation. Normal chest wall mechanics HEART: no murmurs, regular rate, regular rhythm ABDOMEN: abdomen soft, non-tender, no masses, no rebound or guarding. : gross blood at the rectum. External and internal hemorrhoids present. BACK: Back is symmetrical on inspection and there is no deformity, no midline tenderness, no CVA tenderness. SKIN: no rashes and no bruising UPPER EXTREMITIES: upper extremities are grossly normal. LOWER EXTREMITIES: No pitting edema. NEURO EXAM: Normal sensorium, GCS 15, normal speech, no gross weakness of arms, no gross weakness of legs. MEDICAL DECISION MAKING: Differential diagnoses includes but not limited to LGIB, malignancy, internal hemorrhoids, external hemorrhoids, anal fissure, UGIB, diverticulitis In summary, this is a 89 year old male who presented with GI bleeding. Differential as above. Nursing notes and pertinent past medical records reviewed. Vital signs reviewed and the patient is afebrile and HDS. History and presentation revealed The patient was seen here this weekend for a similar event. He states he continues to have large-volume bloody bowel movements. He states he feels slightly nauseous. Intermittent lightheadedness. Patient states that he was given phenylephrine suppositories that have failed to improve his condition. Patient reports a colonoscopy a number of years ago but no recent colonoscopy. I reviewed documentation from prior emergency department visit as well as workup. Physical examination revealed as above. As a result of my initial evaluation, no significant peritonitis and hemodynamic stability in the setting of LGIB. Do feel this is likely related to hemorrhoids but given desi blood and comorbidities, would consider the patient relatively moderate to high risk. Diagnostics interpreted by me include EKG and cardiac monitoring as listed below: -Cardiac Monitoring: An order was placed for continuous cardiac monitoring. The monitor shows a rate of 60-70s with regular rhythm. -ECG: EKG independently interpreted by me reveals normal sinus rhythm at a ventricular rate of 67 bpm. Right bundle branch block present. No significant ST segment changes to suggest STEMI. Patient completed laboratory studies and imaging. Results independently interpreted by me are an acute hemoglobin drop from the weekend. No significant electrolyte derangements in the setting of stable ESRD. The patient was managed with close observation. The patient has an acute hemoglobin drop in the setting of ongoing lower GI bleeding. Visualized external hemorrhoids present with blood at the rectal vault. Patient doses of I have internal hemorrhoids. Do believe the source is bleeding. History is complicated by his significant comorbidities. No anticoagulation. Do feel the patient is a relatively high risk and should be observed in the hospital. Patient is concerned about this and agreeable. Patient will be admitted for high risk GI bleeding with acute hemoglobin drop. Ultimately, the decision was made to admit the patient for acute anemia with LGIB. I discussed the case with the hospitalist service via telephone/TigerText and they are agreeable to admit the patient to their services. Based on the above, including the patient's age, coexisting illnesses, labs, imaging, and exam findings the decision to treat as an inpatient. I discussed the patient with the hospitalist team who recommended admission to their services. They received the medications, treatments, interventions indicated above and their condition remained guarded. I discussed my findings with the patient and their family and they understand and agree with the treatment plan. All patient / family questions were answered to their satisfaction. Consults/Care Managements Discussions: Per MDM ER treatment provided: See above Procedures:none Critical Care: None The chart was completed utilizing [employer] Speech voice recognition software. Grammatical errors, random word insertions, pronoun errors, and incomplete sentences are an occasional consequence of this system due to software limitations, ambient noise, and hardware issues. Any formal questions or concerns about the content, text, or information contained within the body of this dictation should be directly addressed to the physician for clarification. 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, lumbosacral Cervical spondylosis Restrictive lung disease Dialysis AV fistula malfunction Osteoarthritis of right ankle and foot Hemorrhoid Hemodialysis patient ESRD (end stage renal disease) on dialysis Hypothyroid CAD (coronary artery disease) Chronic diastolic heart failure Urinary frequency (Acute) Enlarged prostate with lower urinary tract symptoms (LUTS) (Acute) Basal cell carcinoma (BCC) in situ of skin x2 COPD (chronic obstructive pulmonary disease) inhaler/nebulizer prn Melanoma of skin On anticoagulant therapy aggrenox End stage chronic kidney disease On hemodialysis M W F at [facility] Hypertension Hernia Medical History Diverticulosis 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 AV fistula LEFT ARM Osteoarthritis GERD (gastroesophageal reflux disease) Hypothyroidism Hyperlipidemia Arthritis Chronic GERD Benign prostatic hyperplasia Surgical History History of colonoscopy History of right cataract surgery 06/12/18: was given 2mg of IV versed History of exploratory laparotomy 11/02/17 History of repair of right rotator cuff History of total left knee replacement (TKR) History of umbilical hernia repair History of Mohs micrographic surgery for skin cancer x3 History of tooth extraction History of heart artery stent 1997--2 stents @ [facility] [place] History of angioplasty 1997 Hx of cholecystectomy History of thyroidectomy Family History Other No family history of adverse response to anesthesia Social History Smoking Status: Former smoker Tobacco Type: Cigarettes Age Started Using Tobacco: 17; packs per day: 1; Second Hand Exposure: No; Do You Dip or Chew Tobacco: No; Hx Alcohol Use: Yes Alcohol type: beer Hx Substance Use: No Preferred Language: Austrian Communication Ability: Effective Visual Impairment: No Limitations Cloth Mercerizer Back Tender Required: No Beliefs That Will Affect Care: None marital status: Current Living Situation: Spouse Feels Safe at Home: Yes Assistive Devices: Cane and Walker Allergies Allergies Allergy/AdvReac Type Severity Reaction Status Date / Time No Known Allergies Allergy Verified 10/28/24 09:00 Home Meds Home Medications Medication Instructions Recorded Confirmed allopurinol 100 mg tablet 100 mg PO QAM 10/30/17 11/03/24 (Zyloprim) melatonin 3 mg tablet 3 mg PO HS Sleep 10/30/17 11/03/24 omeprazole 20 mg capsule,delayed 20 mg PO QAM 10/30/17 11/03/24 release aspirin 81 mg tablet,delayed 81 mg PO QAM 05/31/19 11/03/24 release zolpidem 10 mg tablet (Ambien) 10 mg PO HS Sleep 08/05/20 11/03/24 atorvastatin 80 mg tablet (Lipitor) 40 mg PO QPM 09/16/20 11/03/24 amlodipine 10 mg tablet 10 mg PO QAM 11/27/22 11/03/24 ezetimibe 10 mg tablet (Zetia) 10 mg PO QPM 11/27/22 11/03/24 isosorbide mononitrate 30 mg 30 mg PO QAM 11/27/22 11/03/24 tablet,extended release 24 hr lisinopril 40 mg tablet 40 mg PO QAM 11/27/22 11/03/24 polyethylene glycol 3350 17 gram 17 g PO DAILY PRN constipation 11/27/22 11/03/24 oral powder packet sevelamer carbonate 800 mg tablet 800 - 1,600 mg PO DIRECTED 11/27/22 11/03/24 carvedilol 12.5 mg tablet 12.5 mg PO BIDM 11/01/24 11/03/24 dutasteride 0.5 mg capsule 0.5 mg PO QPM 11/01/24 11/03/24 (Avodart) gabapentin 100 mg capsule 100 mg PO HS 11/01/24 11/03/24 levothyroxine 137 mcg tablet 137 mcg PO DAILYBB 11/01/24 11/03/24 vitamin B complex and vitamin C 1 cap PO QAM 11/01/24 11/03/24 no.20-folic acid 1 mg capsule (Triphrocaps) Previous Rx's Medication Instructions Recorded fluticasone furoate 200 1 inh inhalation DAILY #28 ea 03/10/21 mcg-vilanterol 25 mcg/dose inhalation powder (Breo Ellipta) ipratropium bromide 0.02 % 2.5 ml inhalation QID shortness of 11/28/22 solution for inhalation breath or wheezing #300 mL albuterol sulfate 2.5 mg/3 mL 2.5 mg (3 mL) inhalation QID 11/29/23 (0.083 %) solution for nebulization shortness of breath or wheezing #360 mL phenylephrine-witch campbell 0.25 1 applic topical BID PRN 11/01/24 %-50 % topical gel (Preparation H hemorrhoids #26 grams (phenylephrine,witch campbell)) hydrocortisone acetate 25 mg See Rx Instructions .Route 11/04/24 rectal suppository (Anucort-HC) .COMPLEX #24 ea polyethylene glycol 3350 17 gram 17 g PO DAILY #30 ea 11/04/24 oral powder packet (Miralax) Results & Data (ED) Vital Signs Vital Signs - 24 hr 11/03/24 07:53 11/03/24 08:16 11/03/24 08:23 Temperature 36.6 C Temperature Source Temporal Artery Scan Pulse Rate 65 66 Pulse Rate [Apical] Respiratory Rate 18 Respiratory Effort / Characteristics Respiratory Depth Blood Pressure 113/66 Blood Pressure [Right Arm] Blood Pressure Mean 81 Blood Pressure Mean [Right Arm] Pulse Oximetry 97 98 Oxygen Delivery Method Room Air Sepsis Recent Fever Within 48 Hours No Sepsis New/Unexplained Change in Mental Status N/A Sepsis Action Taken by Nursing No Action Required 11/03/24 08:25 11/03/24 10:00 Temperature Temperature Source Pulse Rate Pulse Rate [Apical] 63 62 Respiratory Rate 20 17 Respiratory Effort / Characteristics Non-Labored Spontaneous Respiratory Depth Normal Blood Pressure Blood Pressure [Right Arm] 118/62 113/59 L Blood Pressure Mean Blood Pressure Mean [Right Arm] 80 77 Pulse Oximetry 94 93 Oxygen Delivery Method Room Air Room Air Sepsis Recent Fever Within 48 Hours Sepsis New/Unexplained Change in Mental Status Sepsis Action Taken by Nursing Laboratory Data 11/04/24 05:55 11/04/24 05:55 Lab Results 11/03/24 11/03/24 Range/Units 08:09 08:18 WBC 8.54 (4.8-10.8) K/ul RBC 3.27 L (4.70-6.10) M/uL Hgb 9.8 L (14.0-18.0) g/dl POC Hgb 10.5 L (14.0-18.0) g/dl Hct 30.8 L (42.0-52.0) % POC Hct 31 L (42-52) % MCV 94.2 (80.0-100.0) fL MCH 30.0 (25.0-34.0) pg MCHC 31.8 L (32.0-36.0) g/dL RDW Std Deviation 58.4 H (36.4-46.3) fL RDW Coeff of Ed 16.9 H (11.5-14.5) % Plt Count 176 (130-400) K/uL MPV 9.5 (9.4-12.4) fL Immature Gran % (Auto) 0.5 % Neut % (Auto) 76.0 % Lymph % (Auto) 11.8 % [place] % (Auto) 7.5 % Eos % (Auto) 3.5 % Baso % (Auto) 0.7 % Neut # (Auto) 6.49 (1.40-6.50) K/uL Lymph # (Auto) 1.01 L (1.20-3.40) K/uL [place] # (Auto) 0.64 H (0.11-0.59) K/uL Eos # (Auto) 0.30 (0.00-0.50) K/uL Baso # (Auto) 0.06 (0.00-0.20) K/uL Immature Gran # (Auto) 0.04 (0.01-0.20) K/uL PT 11.4 (9.0-12.0) Seconds INR 1.1 (0.9-1.1) APTT 30 (21-31) Seconds PTT Ratio 1.1 VBG pH 7.38 (7.36-7.41) VBG pCO2 45 (38-50) mmHg VBG pO2 30 mmHg VBG HCO3 27 mmol/L VBG O2 Saturation < 60.0 % VBG Base Excess 1.2 mEq/L POC Sodium 137 (135-144) mmol/L Sodium 139 (136-145) mmol/L POC Potassium 4.9 (3.3-5.0) mmol/L Potassium 4.9 (3.5-5.1) mmol/L POC Chloride 104 (101-112) mmol/L Chloride 101 (98-107) mmol/L Carbon Dioxide 26 (21-32) mmol/L POC Total CO2 24 (24-31) mmol/L Anion Gap 12 H (3-11) POC Anion Gap 15.0 L (16-25) mmol/L POC BUN 52 H (7-18) mg/dl BUN 57 H D (6-23) mg/dl Creatinine 6.53 H* D (0.6-1.4) mg/dl POC Creatinine 7.3 H* (0.6-1.3) mg/dl Est Cr Clr Drug Dosing 6.7 ml/min eGFR 7.57 BUN/Creatinine Ratio 8.7 L (10-20) Glucose 121 H (70-99(Fasting)) mg/dl POC Glucose (other) 117 H (70-99) mg/dl Calcium 9.1 (8.6-10.3) mg/dl POC Ioniz Calcium July 1.18 (1.12-1.32) mmol/l Phosphorus 5.4 H (2.5-4.9) mg/dl Magnesium 2.5 H (1.7-2.4) mg/dl Total Bilirubin 0.7 (0.2-1.0) mg/dl AST 15 (13-39) U/L ALT 8 (7-52) U/L Alkaline Phosphatase 50 (34-104) U/L Troponin I High Sens 11.5 (0-20) pg/ml Total Protein 6.3 (6.0-8.3) gm/dl Albumin 4.0 (3.4-5.0) gm/dl Globulin 2.3 L (2.5-4.0) gm/dl Albumin/Globulin Ratio 1.7 (0.9-2) Hep Bs Antigen Negative (Negative) Hep Bs Antibody Non-Immune Hep Bs Antibody, Quant 4.47 (>or=10mIU/mL Immune) mIU/mL Administered Medications Discontinued Medications Allopurinol (Allopurinol 100 Mg Tab) 100 mg PO QAM CHE Stop: 12/04/24 08:59 Last Admin: 11/04/24 08:34 Dose: 100 mg Documented By: KRISTOFER Amlodipine Besylate (Amlodipine Besylate 5 Mg Tab) 10 mg PO QAM CHE Stop: 12/04/24 08:59 Last Admin: 11/04/24 09:11 Dose: 10 mg Documented By: KRISTOFER Atorvastatin Calcium (Atorvastatin 40 Mg Tab) 40 mg PO QPM CHE Stop: 12/03/24 20:59 Last Admin: 11/03/24 21:05 Dose: 40 mg Documented By: BRITT Carvedilol (Carvedilol 12.5 Mg Tab) 12.5 mg PO BIDM CHE Stop: 12/03/24 16:59 Last Admin: 11/04/24 08:34 Dose: 12.5 mg Documented By: Admin: 11/03/24 16:46 Dose: 12.5 mg Documented By: JOEY Ezetimibe (Ezetimibe 10 Mg Tab) 10 mg PO QPM CHE Stop: 12/03/24 20:59 Last Admin: 11/03/24 21:05 Dose: 10 mg Documented By: BRITT Finasteride (Finasteride 5 Mg Tab) 5 mg PO QPM CHE Stop: 12/03/24 20:59 Last Admin: 11/03/24 21:04 Dose: 5 mg Documented By: BRITT Fluticasone/Vilanterol (Fluticasone/Vilanterol 200/25mcg 14 Puffs/Inhaler) 1 puffs INH DAILY CHE Stop: 12/04/24 08:59 Last Admin: 11/04/24 08:35 Dose: 1 puffs Documented By: KRISTOFER Gabapentin (Gabapentin 100 Mg Cap) 100 mg PO HS CHE Stop: 12/03/24 20:59 Last Admin: 11/03/24 21:05 Dose: 100 mg Documented By: BRITT Hydrocortisone (Hydrocortisone Acetate 25 Mg Supp) 25 mg AR DAILY CHE Stop: 12/03/24 12:44 Last Admin: 11/03/24 16:46 Dose: 25 mg Documented By: JOEY Hydrocortisone (Hydrocortisone Acetate 25 Mg Supp) 25 mg AR TID CHE Stop: 12/04/24 08:59 Last Admin: 11/04/24 13:13 Dose: 25 mg Documented By: Admin: 11/04/24 08:36 Dose: 25 mg Documented By: KRISTOFER Pantoprazole Sodium (Protonix) 40 mg in 10 mls @ 5 mls/min IV BID CHE Stop: 12/03/24 11:44 Last Admin: 11/04/24 08:37 Dose: 5 mls/min Documented By: Admin: 11/03/24 21:06 Dose: 5 mls/min Documented By: Admin: 11/03/24 16:46 Dose: 5 mls/min Documented By: JOEY Isosorbide Mononitrate (Isosorbide [place] Extended Rel 30 Mg Tabcr) 30 mg PO QAM CHE Stop: 12/04/24 08:59 Last Admin: 11/04/24 08:36 Dose: 30 mg Documented By: KRISTOFER Levothyroxine Sodium (Levothyroxine Sodium 137 Mcg Tablet) 137 mcg PO DAILYBB CHE Stop: 12/04/24 06:29 Last Admin: 11/04/24 06:05 Dose: 137 mcg Documented By: BRITT Lisinopril (Lisinopril 40 Mg Tab) 40 mg PO QAM CHE Stop: 12/04/24 08:59 Last Admin: 11/04/24 08:36 Dose: 40 mg Documented By: KRISTOFER Melatonin (Melatonin 3 Mg Tab) 3 mg PO HS CHE Stop: 12/03/24 20:59 Last Admin: 11/03/24 23:25 Dose: 3 mg Documented By: BRITT Miscellaneous (No Heparin In Dialysis) 1 each N/A ONE ONE Stop: 11/03/24 11:31 Last Admin: 11/03/24 13:04 Dose: Not Given Documented By: CC Polyethylene Glycol (Polyethylene (Miralax) 17 Gm Pack) 17 gm PO DAILY CHE Stop: 12/03/24 12:44 Last Admin: 11/04/24 11:36 Dose: Not Given Documented By: Admin: 11/03/24 16:41 Dose: Not Given Documented By: JOEY Sevelamer Carbonate (Sevelamer Carbonate 800 Mg Tab) 1,600 mg PO AC CHE Stop: 12/03/24 16:29 Last Admin: 11/04/24 11:34 Dose: 1,600 mg Documented By: Admin: 11/04/24 08:33 Dose: 1,600 mg Documented By: Admin: 11/03/24 16:45 Dose: 1,600 mg Documented By: JOEY Vitamin B Complex/Folic Acid (Nephrocaps) 1 cap PO QAM CHE Stop: 12/04/24 08:59 Last Admin: 11/04/24 08:36 Dose: 1 cap Documented By: KRISTOFER Zolpidem Tartrate (Zolpidem Tartrate 5 Mg Tab) 10 mg PO HS CHE Stop: 12/03/24 20:59 Last Admin: 11/03/24 23:25 Dose: 10 mg Documented By: BRITT Discharge Plan Visit Data Chief Complaint: Rectal Bleed Stated Complaint: RECTAL BLEED, WAS SEEN 11/01 ED Provider: Santiago Kulkarni Discharge Problem: Acute blood loss anemia, LGI bleed, ESRD on hemodialysis, Internal and external bleeding hemorrhoids Patient Disposition: Admitted As Inpatient Condition: Serious Discharge Instructions Interventions: ED Discharge Assessment Last Done: 11/03/24 10:58
[2024-11-03 08:33] LABS: Hematocrit (blood only) 30.8 % (42.0-52.0); Hemoglobin 9.8 g/dl (14.0-18.0); Immature Granulocytes # (auto) 0.04 K/uL (0.01-0.20); Immature Granulocytes % (auto) 0.5 %; Mean Corpuscular Hemoglobin 30.0 pg (25.0-34.0); Mean Corpuscular Volume 94.2 fL (80.0-100.0); Platelet Count 176 K/uL (130-400); RDW Standard Deviation 58.4 fL (36.4-46.3); Red Blood Count 3.27 M/uL (4.70-6.10); White Blood Count 8.54 K/ul (4.8-10.8)
[2024-11-03 09:02] LABS: Alanine Aminotransferase 8.0 U/L (7-52); Albumin Globulin Ratio 1.7 (0.9-2); Albumin Level 4.0 gm/dl (3.4-5.0); Alkaline Phosphatase 50.0 U/L (34-104); Anion Gap 12.0 (3-11); Bilirubin,Total 0.7 mg/dl (0.2-1.0); Blood Urea Nitrogen 57.0 mg/dl (6-23); Calcium 9.1 mg/dl (8.6-10.3); Carbon Dioxide 26.0 mmol/L (21-32); Chloride 101.0 mmol/L (98-107); Creatinine Clr Calc Pharmacy 6.7 ml/min; Globulin 2.3 gm/dl (2.5-4.0); Glucose 121.0 mg/dl (70-99(Fasting)); INR 1.1 (0.9-1.1); Magnesium 2.5 mg/dl (1.7-2.4); Partial Thromboplastin Time 30 Seconds (21-31); Potassium 4.9 mmol/L (3.5-5.1); Prothrombin Time 11.4 Seconds (9.0-12.0); Sodium 139.0 mmol/L (136-145); Total Protein 6.3 gm/dl (6.0-8.3)
--- NOTE | 2024-11-03 09:35 | History & Physical Report ---
Date of Service November 03, 2024 Assessment & Plan (1) Rectal bleeding: (2) ESRD (end stage renal disease) on dialysis: (3) COPD (chronic obstructive pulmonary disease): (4) CAD (coronary artery disease): (5) Hypertension: (6) Enlarged prostate with lower urinary tract symptoms (LUTS): (7) Hypothyroid: Plan This is an 89 y/o male with ESRD on HD (MWF), chronic diastolic HF, COPD, HTN, hypothyroidism, LONI, CAD s/p PCI to RCA (1996), dyslipidemia, GERD, BPH, and other history as outlined below who presents to the ED today with ongoing rectal bleeding. He has known internal and external hemorrhoids as well as diverticulosis seen on last scope in 2019. Seen in the ED for this complaint two days ago but symptoms persist despite recommended treatment. Hgb has dropped from 11.2 to 9.8 since seen two days ago. Pt referred for admission for close monitoring and further evaluation on ongoing bleeding. #Rectal bleeding #Acute on chronic anemia - Admit to PCU - Trend H&H - Consult GI for additional recommendations - BID PPI - Hold aspirin for now - Labs in the AM - CBC, BMP, Mg, Phos #ESRD on HD - Consult nephrology #CAD - s/p PCI to the RCA - Chronic, stable - Holding aspirin as above - Continue medical management #HTN - Monitor BP closely in the setting of blood loss #Hypothyroidism - Chronic, stable - continue levothyroxine #COPD - Chronic, stable - continue Breo, prn nebs Pt seen and reviewed with collaborating physician, Dr. March. Plan of care discussed and as outlined above Code status: full code DVT prophylaxis: Claudio Trivedi PA-C History of Present Illness Chief Complaint: rectal bleeding Primary Care Provider: Abad Thomas MD This is an 89 y/o male with ESRD on HD (MWF), chronic diastolic HF, COPD, HTN, hypothyroidism, LONI, CAD s/p angioplasty with stent, dyslipidemia, GERD, BPH, and other history as outlined below who presents to the ED today with ongoing rectal bleeding. Pt reports that his symptoms started three days ago. He was seen in the ED two days ago - bleeding thought likely due to hemorrhoids. He was discharged with phenylephrine with witch campbell to use for hemorrhoids. However, pt reports continued issues with intermittent rectal bleeding, no pattern that he has noted. Currently having intermittent dark bleeding, no significant stool mixed in, no blood clots noted. At baseline his bowel pattern is irregular, may only have 2-3 BM/week, +straining at times. He uses prn Miralax ~2x/week but is unsure if this helps. Bowel pattern has not changed recently. Abdomen feels uncomfortable and unsettled preceding the episodes of bleeding, better after. Denies significant abdominal pain. Denies N/V, heartburn, indigestion. On daily omeprazole, which works well. He does take low-dose aspirin daily. He reports stable MARKS, which he attributes to known COPD. Using nebulizer prn, which helps. Denies CP, palpitations, dizziness, syncope. On HD // - still makes urine but has not noted any hematuria. Appetite fair but stable, weight stable. He reports a similar episode of bleeding six years ago, for which he had a procedure that worked well. No issues with bleeding since that procedure. Last colonoscopy in August 2019 - reports he was told not to have another. Colonoscopy 08/28/19 - fair prep, non-thrombosed external hemorrhoids, moderate internal hemorrhoids, 6 mm transverse colon polyp (early tubular adenoma, negative for high-grade dysplasia), mild diverticulosis in ascending colon, moderate diverticulosis in the sigmoid and descending colon, exam o/w normal. Allergies Allergy/AdvReac Type Severity Reaction Status Date / Time No Known Allergies Allergy Verified 10/28/24 09:00 Home Medications Medication Instructions Recorded Confirmed Type allopurinol 100 mg tablet 100 mg PO QAM 10/30/17 11/03/24 History (Zyloprim) melatonin 3 mg tablet 3 mg PO HS Sleep 10/30/17 11/03/24 History omeprazole 20 mg capsule,delayed 20 mg PO QAM 10/30/17 11/03/24 History release aspirin 81 mg tablet,delayed 81 mg PO QAM 05/31/19 11/03/24 History release zolpidem 10 mg tablet (Ambien) 10 mg PO HS Sleep 08/05/20 11/03/24 History atorvastatin 80 mg tablet (Lipitor) 40 mg PO QPM 09/16/20 11/03/24 History fluticasone furoate 200 1 inh inhalation DAILY #28 ea 03/10/21 11/03/24 Rx mcg-vilanterol 25 mcg/dose inhalation powder (Breo Ellipta) amlodipine 10 mg tablet 10 mg PO QAM 11/27/22 11/03/24 History ezetimibe 10 mg tablet (Zetia) 10 mg PO QPM 11/27/22 11/03/24 History isosorbide mononitrate 30 mg 30 mg PO QAM 11/27/22 11/03/24 History tablet,extended release 24 hr lisinopril 40 mg tablet 40 mg PO QAM 11/27/22 11/03/24 History polyethylene glycol 3350 17 gram 17 g PO DAILY PRN constipation 11/27/22 11/03/24 History oral powder packet sevelamer carbonate 800 mg tablet 800 - 1,600 mg PO DIRECTED 11/27/22 11/03/24 History ipratropium bromide 0.02 % 2.5 ml inhalation QID shortness of 11/28/22 11/03/24 Rx solution for inhalation breath or wheezing #300 mL albuterol sulfate 2.5 mg/3 mL 2.5 mg (3 mL) inhalation QID 11/29/23 11/03/24 Rx (0.083 %) solution for nebulization shortness of breath or wheezing #360 mL carvedilol 12.5 mg tablet 12.5 mg PO BIDM 11/01/24 11/03/24 History dutasteride 0.5 mg capsule 0.5 mg PO QPM 11/01/24 11/03/24 History (Avodart) gabapentin 100 mg capsule 100 mg PO HS 11/01/24 11/03/24 History levothyroxine 137 mcg tablet 137 mcg PO DAILYBB 11/01/24 11/03/24 History phenylephrine-witch campbell 0.25 1 applic topical BID PRN 11/01/24 11/03/24 Rx %-50 % topical gel (Preparation H hemorrhoids #26 grams (phenylephrine,witch campbell)) vitamin B complex and vitamin C 1 cap PO QAM 11/01/24 11/03/24 History no.20-folic acid 1 mg capsule (Triphrocaps) Past Med/Surg History Problem List (Updated 11/03/24 @ 12:32 by Ricco Freeman PA-C) Constipation Rectal bleeding 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 with neurogenic claudication Retrolisthesis of vertebrae Disc degeneration, lumbosacral Cervical spondylosis Restrictive lung disease Dialysis AV fistula malfunction Osteoarthritis of right ankle and foot Hemorrhoid Hemodialysis patient ESRD (end stage renal disease) on dialysis Hypothyroid CAD (coronary artery disease) Chronic diastolic heart failure Urinary frequency (Acute) Enlarged prostate with lower urinary tract symptoms (LUTS) (Acute) Basal cell carcinoma (BCC) in situ of skin x2 COPD (chronic obstructive pulmonary disease) inhaler/nebulizer prn Melanoma of skin On anticoagulant therapy aggrenox End stage chronic kidney disease On hemodialysis M W at [facility] Hypertension Hernia Medical History Diverticulosis 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 AV fistula LEFT ARM Osteoarthritis GERD (gastroesophageal reflux disease) Hypothyroidism Hyperlipidemia Arthritis Chronic GERD Benign prostatic hyperplasia Surgical History (Updated 11/03/24 @ 09:42 by Yara Trivedi PA-C) History of colonoscopy History of right cataract surgery 06/12/18: was given 2mg of IV versed History of exploratory laparotomy 11/02/17 History of repair of right rotator cuff History of total left knee replacement (TKR) History of umbilical hernia repair History of Mohs micrographic surgery for skin cancer x3 History of tooth extraction History of heart artery stent 1997--2 stents @ [facility] [place] History of angioplasty 1997 Hx of cholecystectomy History of thyroidectomy Family History Other No family history of adverse response to anesthesia Social History Smoking Status: Former smoker Tobacco Type: Cigarettes Age Started Using Tobacco: 17; packs per day: 1; Second Hand Exposure: No; Do You Dip or Chew Tobacco: No; Hx Alcohol Use: Yes Alcohol type: beer Hx Substance Use: No Preferred Language: Luxembourgish Communication Ability: Effective Visual Impairment: No Limitations Construction 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 Operator Required: No Beliefs That Will Affect Care: None marital status: Current Living Situation: Spouse Other Information That Helps Us Care for You: No Feels Safe at Home: Yes Safety Concerns: Feels Safe At This Time Assistive Devices: Cane, Glasses and Walker Review of Systems Review of Systems: All systems reviewed & are unremarkable except as noted in Subjective Physical Exam Physical Exam: General: awake, alert, NAD HEENT: no scleral icterus, moist oral mucosa Neck: supple, trachea midline Heart: RRR, +murmur Lungs: CTA bilaterally on the anterior Abdomen: soft, NT, +BS Extremities: distal pulses intact and equal, trace LE edema Skin: multiple areas of ecchymosis on UE, no jaundice Neurologic: Ox3, no confusion or dysarthria, moving all extremities Results & Data Results & Data Vital Signs (Past 12 Hours) Vital Signs Temp Pulse Pulse Resp BP BP Pulse Ox 11/03/24 08:25 63 20 118/62 94 11/03/24 08:23 66 11/03/24 08:16 98 11/03/24 07:53 36.6 C 65 18 113/66 97 O2 Del Method 11/03/24 08:25 Room Air 11/03/24 08:23 11/03/24 08:16 Room Air 11/03/24 07:53 Laboratory Results Lab Results 11/03/24 11/03/24 Range/Units 08:09 08:18 WBC 8.54 (4.8-10.8) K/ul RBC 3.27 L (4.70-6.10) M/uL Hgb 9.8 L (14.0-18.0) g/dl POC Hgb 10.5 L (14.0-18.0) g/dl Hct 30.8 L (42.0-52.0) % POC Hct 31 L (42-52) % MCV 94.2 (80.0-100.0) fL MCH 30.0 (25.0-34.0) pg MCHC 31.8 L (32.0-36.0) g/dL RDW Std Deviation 58.4 H (36.4-46.3) fL RDW Coeff of Ed 16.9 H (11.5-14.5) % Plt Count 176 (130-400) K/uL MPV 9.5 (9.4-12.4) fL Immature Gran % (Auto) 0.5 % Neut % (Auto) 76.0 % Lymph % (Auto) 11.8 % [place] % (Auto) 7.5 % Eos % (Auto) 3.5 % Baso % (Auto) 0.7 % Neut # (Auto) 6.49 (1.40-6.50) K/uL Lymph # (Auto) 1.01 L (1.20-3.40) K/uL [place] # (Auto) 0.64 H (0.11-0.59) K/uL Eos # (Auto) 0.30 (0.00-0.50) K/uL Baso # (Auto) 0.06 (0.00-0.20) K/uL Immature Gran # (Auto) 0.04 (0.01-0.20) K/uL PT 11.4 (9.0-12.0) Seconds INR 1.1 (0.9-1.1) APTT 30 (21-31) Seconds PTT Ratio 1.1 VBG pH 7.38 (7.36-7.41) VBG pCO2 45 (38-50) mmHg VBG pO2 30 mmHg VBG HCO3 27 mmol/L VBG O2 Saturation < 60.0 % VBG Base Excess 1.2 mEq/L POC Sodium 137 (135-144) mmol/L Sodium 139 (136-145) mmol/L POC Potassium 4.9 (3.3-5.0) mmol/L Potassium 4.9 (3.5-5.1) mmol/L POC Chloride 104 (101-112) mmol/L Chloride 101 (98-107) mmol/L Carbon Dioxide 26 (21-32) mmol/L POC Total CO2 24 (24-31) mmol/L Anion Gap 12 H (3-11) POC Anion Gap 15.0 L (16-25) mmol/L POC BUN 52 H (7-18) mg/dl BUN 57 H D (6-23) mg/dl Creatinine 6.53 H* D (0.6-1.4) mg/dl POC Creatinine 7.3 H* (0.6-1.3) mg/dl Est Cr Clr Drug Dosing 6.7 ml/min eGFR 7.57 BUN/Creatinine Ratio 8.7 L (10-20) Glucose 121 H (70-99(Fasting)) mg/dl POC Glucose (other) 117 H (70-99) mg/dl Calcium 9.1 (8.6-10.3) mg/dl POC Ioniz Calcium July 1.18 (1.12-1.32) mmol/l Phosphorus 5.4 H (2.5-4.9) mg/dl Magnesium 2.5 H (1.7-2.4) mg/dl Total Bilirubin 0.7 (0.2-1.0) mg/dl AST 15 (13-39) U/L ALT 8 (7-52) U/L Alkaline Phosphatase 50 (34-104) U/L Troponin I High Sens 11.5 (0-20) pg/ml Total Protein 6.3 (6.0-8.3) gm/dl Albumin 4.0 (3.4-5.0) gm/dl Globulin 2.3 L (2.5-4.0) gm/dl Albumin/Globulin Ratio 1.7 (0.9-2) Supervising Physician Co-Signing Physician Notes Attending Addendum: Case reviewed with the advanced practitioner. I have personally performed a history and physical examination on the patient. I have reviewed the advanced practitioner's documentation on the date of service referenced in note, and I agree with, and take responsibility for the plan of care. please refer to her notes for full details patient seen and examined, records reviewed by myself as well on exam, patient seen resting in bed, comfortable just had 2 episodes of hematochezia in the last 20 minutes as per patient mild lower abdominal discomfort no chest pain, dyspnea, palpitations, dizziness no other symptoms VS noted and reviewed oriented x3, not in distress, speaks in sentences with no effort nor accessory muscle use normal rate, regular rhythm, no murmurs clear breath sounds bilaterally non distended, soft, nontender no bipedal edema, erythema, warmth no neuro deficits all labs, imaging noted and reviewed ASSESSMENT AND PLAN> HEMATOCHEZIA Hg 9.8--> 9.2 evaluated by GI, felt to be secondary to hemorrhoidal bleed had 2 more episodes late afternoon, GI notified repeat Hg 9pm NPO post midnight hold ASA other diagnoses and plan of care as per advanced practitioner's notes I spent a total of 40 minutes coordinating, documenting, and providing care for this patient, excluding time spent in the performance of separately billed services or time spent by another provider/QHP. Yonas March MD (3) COPD (chronic obstructive pulmonary disease) COPD type: unspecified COPD Qualified Code(s): J44.9 - Chronic obstructive pulmonary disease, unspecified (4) CAD (coronary artery disease) Associated angina: without angina Coronary Disease-Associated Artery/Lesion type: [place] artery [place] vs. transplanted heart: [place] heart Qualified Code(s): I25.10 - Atherosclerotic heart disease of [place] coronary artery without angina pectoris (5) Hypertension Hypertension type: essential hypertension Qualified Code(s): I10 - Essential (primary) hypertension (6) Enlarged prostate with lower urinary tract symptoms (LUTS) Lower urinary tract symptom detail: unspecified Qualified Code(s): N40.1 - Benign prostatic hyperplasia with lower urinary tract symptoms (7) Hypothyroid Hypothyroidism type: unspecified Qualified Code(s): E03.9 - Hypothyroidism, unspecified
[2024-11-03] MEDS ORDERED: ACETAMINOPHEN 325 MG TAB PO PRN (11:20)
--- NOTE | 2024-11-03 11:29 | Nephrology Consultation ---
Date of Consultation November 03, 2024 Assessment & Plan (1) ESRD (end stage renal disease) on dialysis: on MWF HD via AVF at [facility]; due for tx today; not grossly overloaded; chemistries acceptable. hemodynacmially stable no XR/ imaging needed; if pRBC needed (and would have transfusion threshold of 8 for this pt) pls contact nephro so we can transfuse w/ HD if needed > so far pRBC needs unlikely >orders in for routine OP tx based on OP orders; no heparin -next HD on 11/05 or as clnical needs dictate (2) Rectal bleeding: per GI and primary service; hgb OP trends as above History of Present Illness Reason for Consultation: ESRD on HD Requesting Physician: Dr March Attending Physician: Yonas March MD History of Present Illness 89 y/o M whom I'm asked to see for ESRD on HD was admitted this am for evaluation of rectal bleeding, acute on chronic anemia w/ presenting hgb 9.8. PMH includes ESRD on HD (MWF), CAD s/p angioplasty with stent, HFpEF, aortic stenosis, COPD, HTN, hypothyroidism, LONI,, dyslipidemia, GERD, BPH. Rectal bleeding intermittent/dark blood began late 10/31; came to ED 11/01 and was sent home after eval w/ dx hemorrhoids. came back when bleeding recurred. No hematochezia, not passing clots. No new or worrisome bowel complaints > stable mild constipation uses miralax; strains at times. denies abdominal bloating or pain. no worsening fatigue or dyspnea; no chest pain or palpitations. minimal UOP but stable and w/o faby shematuria. no cough or wheeze. Adherent to HD treatments. Colonoscopy 08/28/19 - fair prep, non-thrombosed external hemorrhoids, moderate internal hemorrhoids, 6 mm transverse colon polyp (early tubular adenoma, negative for high-grade dysplasia), mild diverticulosis in ascending colon, moderate diverticulosis in the sigmoid and descending colon, exam o/w normal. advised per pt not to have another colonoscopy). GI evaluated pt and recommending OP hemorrhoid banding. Last Hgb at HD this month 10/20 was 11; generally runs 9's/10's. He just completed a venofer load at HD (10 x 100 mg IV) since 10/14. Allergies Allergy/AdvReac Type Severity Reaction Status Date / Time No Known Allergies Allergy Verified 10/28/24 09:00 Home Medications Medication Instructions Recorded Confirmed Type allopurinol 100 mg tablet 100 mg PO QAM 10/30/17 11/03/24 History (Zyloprim) melatonin 3 mg tablet 3 mg PO HS Sleep 10/30/17 11/03/24 History omeprazole 20 mg capsule,delayed 20 mg PO QAM 10/30/17 11/03/24 History release aspirin 81 mg tablet,delayed 81 mg PO QAM 05/31/19 11/03/24 History release zolpidem 10 mg tablet (Ambien) 10 mg PO HS Sleep 08/05/20 11/03/24 History atorvastatin 80 mg tablet (Lipitor) 40 mg PO QPM 09/16/20 11/03/24 History fluticasone furoate 200 1 inh inhalation DAILY #28 ea 03/10/21 11/03/24 Rx mcg-vilanterol 25 mcg/dose inhalation powder (Breo Ellipta) amlodipine 10 mg tablet 10 mg PO QAM 11/27/22 11/03/24 History ezetimibe 10 mg tablet (Zetia) 10 mg PO QPM 11/27/22 11/03/24 History isosorbide mononitrate 30 mg 30 mg PO QAM 11/27/22 11/03/24 History tablet,extended release 24 hr lisinopril 40 mg tablet 40 mg PO QAM 11/27/22 11/03/24 History polyethylene glycol 3350 17 gram 17 g PO DAILY PRN constipation 11/27/22 11/03/24 History oral powder packet sevelamer carbonate 800 mg tablet 800 - 1,600 mg PO DIRECTED 11/27/22 11/03/24 History ipratropium bromide 0.02 % 2.5 ml inhalation QID shortness of 11/28/22 11/03/24 Rx solution for inhalation breath or wheezing #300 mL albuterol sulfate 2.5 mg/3 mL 2.5 mg (3 mL) inhalation QID 11/29/23 11/03/24 Rx (0.083 %) solution for nebulization shortness of breath or wheezing #360 mL carvedilol 12.5 mg tablet 12.5 mg PO BIDM 11/01/24 11/03/24 History dutasteride 0.5 mg capsule 0.5 mg PO QPM 11/01/24 11/03/24 History (Avodart) gabapentin 100 mg capsule 100 mg PO HS 11/01/24 11/03/24 History levothyroxine 137 mcg tablet 137 mcg PO DAILYBB 11/01/24 11/03/24 History phenylephrine-witch campbell 0.25 1 applic topical BID PRN 11/01/24 11/03/24 Rx %-50 % topical gel (Preparation H hemorrhoids #26 grams (phenylephrine,witch campbell)) vitamin B complex and vitamin C 1 cap PO QAM 11/01/24 11/03/24 History no.20-folic acid 1 mg capsule (Triphrocaps) Patient History Medical History Diverticulosis 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 AV fistula LEFT ARM Osteoarthritis GERD (gastroesophageal reflux disease) Hypothyroidism Hyperlipidemia Arthritis Chronic GERD Benign prostatic hyperplasia Surgical History History of colonoscopy History of right cataract surgery 06/12/18: was given 2mg of IV versed History of exploratory laparotomy 11/02/17 History of repair of right rotator cuff History of total left knee replacement (TKR) History of umbilical hernia repair History of Mohs micrographic surgery for skin cancer x3 History of tooth extraction History of heart artery stent 1997--2 stents @ [facility] [place] History of angioplasty 1997 Hx of cholecystectomy History of thyroidectomy Family History Other No family history of adverse response to anesthesia Social History Smoking Status: Former smoker Tobacco Type: Cigarettes Age Started Using Tobacco: 17; packs per day: 1; Second Hand Exposure: No; Do You Dip or Chew Tobacco: No; Hx Alcohol Use: Yes Alcohol type: beer Hx Substance Use: No Preferred Language: Mongolian Communication Ability: Effective Visual Impairment: No Limitations Wheel Braider Required: No Beliefs That Will Affect Care: None marital status: Current Living Situation: Spouse Other Information That Helps Us Care for You: No Feels Safe at Home: Yes Safety Concerns: Feels Safe At This Time Assistive Devices: Cane, Glasses and Walker Review of Systems 2 Review of Systems: All systems reviewed & are unremarkable except as noted in HPI & below Physical Exam 2 Constitutional: well developed and well nourished Eyes: EOM intact bilaterally ENMT: Mouth: + dry oral mucous membranes Respiratory: normal respiratory effort Auscultation: + diminished lung sounds Cardiovascular: Rate/Rhythm: regular rate and regular rhythm Heart Sounds: + murmur Extremities: + edema (trace, L>R) and + AV fistula (+ t/b) Gastrointestinal (Abdomen): Inspection/Auscultation: normal bowel sounds P ercussion/Palpation: abdomen soft; abdomen nontender Musculoskeletal: Extremities: strength 5/5 throughout Skin: no rashes, warm and dry Neurologic: pineda, fluent speech, no tremor Results & Data Vital Signs (Past 12 Hours) Vital Signs Temp Pulse Pulse Resp BP BP Pulse Ox 11/03/24 10:00 62 17 113/59 L 93 11/03/24 08:25 63 20 118/62 94 11/03/24 08:23 66 11/03/24 08:16 98 11/03/24 07:53 36.6 C 65 18 113/66 97 O2 Del Method 11/03/24 10:00 Room Air 11/03/24 08:25 Room Air 11/03/24 08:23 11/03/24 08:16 Room Air 11/03/24 07:53 Laboratory Results 11/03/24 08:09 11/03/24 08:09
[2024-11-03] MEDS ORDERED: SODIUM CHLORIDE 0.9% 1,000 ML IV PRN (11:30)
--- NOTE | 2024-11-03 12:27 | Gastrointestinal Consultation ---
Date of Consultation November 03, 2024 Assessment & Plan (1) Rectal bleeding: (2) Constipation: Plan Patient presented with Rectal bleeding in the setting of constipation that failed to see benefit as an outpatient with prep H. Currently, he denies further bleeding since being admitted. Patient seen with Dr. Fuentes. - start Hydrocortisone suppositories to see if this helps with hemorrhoids. - if failing to respond to conservative treatment, can consider banding with colorectal surgery as an outpatient. - recommend starting miralax 17gm daily, titrating up to TID as needed for constipation. Supervising Physician Co-Signing Physician Notes Pt seen with PA. Agree with his findings and assessment and plan. Very pleasant 89 yr old gentleman admitted with rectal bleeding. He states he developed BRBPR after straining to have a BM. This has happened to him in the past and he had his hemorrhoids banded. This worked nicely. Last cscope 5 yrs ago. I suspect he is having hemorrhoidal bleeding. I would favor holding off on an endoscopic workup given his age and comorbidities. Will give Anusol HC suppositories now. Bowel regimen with miralax to try and prevent straining. Outpt banding with colorectal surgery. History of Present Illness Reason for Consultation: Rectal bleeding Requesting Physician: Yara Trivedi PAC Attending Physician: Yonas March MD History of Present Illness Patient is an 89 year old male with ESRD on HD (), chronic diastolic HF, COPD, HTN, hypothyroidism, LONI, CAD s/p PCI to RCA (1996), dyslipidemia, GERD, BPH who presents to the ED today with ongoing rectal bleeding. He has known internal and external hemorrhoids as well as diverticulosis seen on last scope in 2019 through [facility]. He had been in the ED over the weekend for this complaint but symptoms persisted despite him doing a trial of preparation H. In the past, he had hsi hemorrhoids banded and found that was successful. He admits that he has constipation at baseline and only moves his bowels 2-3 times a week and does typically strain to move his bowels. He was using otc stool softeners without much benefit. Hgb had dropped from 11.2 to 9.8 since seen two days ago. He tells me that he has not had further bleeding since he had come to hospital. The remainder of the GI ROS were unremarkable. Colonoscopy 08/28/19 - fair prep, non-thrombosed external hemorrhoids, moderate internal hemorrhoids, 6 mm tubular adenoma polyp in transverse colon, mild diverticulosis in ascending colon, moderate diverticulosis in the sigmoid and descending colon. Allergies Allergy/AdvReac Type Severity Reaction Status Date / Time No Known Allergies Allergy Verified 10/28/24 09:00 Home Medications Medication Instructions Recorded Confirmed Type allopurinol 100 mg tablet 100 mg PO QAM 10/30/17 11/03/24 History (Zyloprim) melatonin 3 mg tablet 3 mg PO HS Sleep 10/30/17 11/03/24 History omeprazole 20 mg capsule,delayed 20 mg PO QAM 10/30/17 11/03/24 History release nebulizer accessories #1 ea 02/13/19 11/01/24 Rx nebulizer and compressor #1 ea 02/13/19 11/01/24 Rx aspirin 81 mg tablet,delayed 81 mg PO QAM 05/31/19 11/03/24 History release zolpidem 10 mg tablet (Ambien) 10 mg PO HS Sleep 08/05/20 11/03/24 History Flutter Valve #1 ea 09/16/20 11/01/24 Rx atorvastatin 80 mg tablet (Lipitor) 40 mg PO QPM 09/16/20 11/03/24 History fluticasone furoate 200 1 inh inhalation DAILY #28 ea 03/10/21 11/03/24 Rx mcg-vilanterol 25 mcg/dose inhalation powder (Breo Ellipta) amlodipine 10 mg tablet 10 mg PO QAM 11/27/22 11/03/24 History ezetimibe 10 mg tablet (Zetia) 10 mg PO QPM 11/27/22 11/03/24 History isosorbide mononitrate 30 mg 30 mg PO QAM 11/27/22 11/03/24 History tablet,extended release 24 hr lisinopril 40 mg tablet 40 mg PO QAM 11/27/22 11/03/24 History polyethylene glycol 3350 17 gram 17 g PO DAILY PRN constipation 11/27/22 11/03/24 History oral powder packet sennosides 8.6 mg capsule (senna) 8.6 mg PO DAILY 11/27/22 11/03/24 History sevelamer carbonate 800 mg tablet 800 - 1,600 mg PO DIRECTED 11/27/22 11/03/24 History Flutter Valve #1 ea 11/28/22 11/01/24 Rx ipratropium bromide 0.02 % 2.5 ml inhalation QID shortness of 11/28/22 11/03/24 Rx solution for inhalation breath or wheezing #300 mL albuterol sulfate 2.5 mg/3 mL 2.5 mg (3 mL) inhalation QID 11/29/23 11/03/24 Rx (0.083 %) solution for nebulization shortness of breath or wheezing #360 mL carvedilol 12.5 mg tablet 12.5 mg PO BIDM 11/01/24 11/03/24 History dutasteride 0.5 mg capsule 0.5 mg PO QPM 11/01/24 11/03/24 History (Avodart) gabapentin 100 mg capsule 100 mg PO HS 11/01/24 11/03/24 History levothyroxine 137 mcg tablet 137 mcg PO DAILYBB 11/01/24 11/03/24 History phenylephrine-witch campbell 0.25 1 applic topical BID PRN 11/01/24 11/03/24 Rx %-50 % topical gel (Preparation H hemorrhoids #26 grams (phenylephrine,witch campbell)) vitamin B complex and vitamin C 1 cap PO QAM 11/01/24 11/03/24 History no.20-folic acid 1 mg capsule (Triphrocaps) Patient History Medical History Diverticulosis 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 AV fistula LEFT ARM Osteoarthritis GERD (gastroesophageal reflux disease) Hypothyroidism Hyperlipidemia Arthritis Chronic GERD Benign prostatic hyperplasia Surgical History (Updated 11/03/24 @ 09:42 by Yara Trivedi PA-C) History of colonoscopy History of right cataract surgery 06/12/18: was given 2mg of IV versed History of exploratory laparotomy 11/02/17 History of repair of right rotator cuff History of total left knee replacement (TKR) History of umbilical hernia repair History of Mohs micrographic surgery for skin cancer x3 History of tooth extraction History of heart artery stent 1997--2 stents @ [facility] [place] History of angioplasty 1997 Hx of cholecystectomy History of thyroidectomy Family History Other No family history of adverse response to anesthesia Social History Smoking Status: Former smoker Tobacco Type: Cigarettes Age Started Using Tobacco: 17; packs per day: 1; Second Hand Exposure: No; Do You Dip or Chew Tobacco: No; Hx Alcohol Use: Yes Alcohol type: beer Hx Substance Use: No Preferred Language: Azeri Communication Ability: Effective Visual Impairment: No Limitations Court Deputy Required: No Beliefs That Will Affect Care: None marital status: Current Living Situation: Spouse Other Information That Helps Us Care for You: No Feels Safe at Home: Yes Safety Concerns: Feels Safe At This Time Assistive Devices: Cane, Glasses and Walker Review of Systems Review of Systems: All systems reviewed & are unremarkable except as noted in HPI & below Physical Exam Constitutional: WD/WN, vitals as above Respiratory: normal respiratory effort, lungs clear to auscultation Cardiovascular: Rate/Rhythm: regular rate and regular rhythm Gastrointestinal (Abdomen): normal bowel sounds, soft, nontender, no hepatosplenomegaly Psychiatric: Orientation: alert and oriented x 3 Affect: euthymic affect Results & Data Vital Signs (Past 12 Hours) Vital Signs Temp Pulse Pulse Resp BP BP Pulse Ox 11/03/24 11:10 97.9 F 62 18 136/76 97 11/03/24 10:00 62 17 113/59 L 93 11/03/24 08:25 63 20 118/62 94 11/03/24 08:23 66 11/03/24 08:16 98 11/03/24 07:53 97.9 F 65 18 113/66 97 O2 Del Method 11/03/24 11:10 Room Air 11/03/24 10:00 Room Air 11/03/24 08:25 Room Air 11/03/24 08:23 11/03/24 08:16 Room Air 11/03/24 07:53 Coding Level of Care Code 73068 INT INP/OBS CARE 2/55MIN Diagnoses Rectal bleeding K62.5 Constipation K59.00
[2024-11-03 13:08] LABS: Hep B Surface Ag with confirm Negative (Negative)
[2024-11-03] MEDS ORDERED: POLYETHYLENE (MIRALAX) 17 GM PACK PO PRN (13:53)
[2024-11-03] MEDS ORDERED: ALBUT/IPRATROP 3MG/0.5MG NEB 3 ML VIAL NEB PRN (13:54)
[2024-11-03] MEDS ORDERED: SEVELAMER CARBONATE 800 MG TAB PO PRN (14:06)
--- NOTE | 2024-11-03 15:19 | Electrocardiogram Report ---
Test Reason : Blood Pressure : */* mmHG Vent. Rate : 67 BPM Atrial Rate : 67 BPM P-R Int : 190 ms QRS Dur : 136 ms QT Int : 450 ms P-R-T Axes : 37 -21 -13 degrees QTcB Int : 475 ms Normal sinus rhythm Right bundle branch block Minimal voltage criteria for LVH, may be normal variant ( R in aVL ) Abnormal ECG When compared with ECG of 01-Nov-2024 21:01, No significant change was found Confirmed by Feroz Eubanks ([id number]) on 11/03/2024 3:19:37 PM Referred By: REFERRED SELF Confirmed By: Feroz Eubanks
[2024-11-03 16:15] LABS: Hematocrit (blood only) 29.2 % (42.0-52.0); Hemoglobin 9.2 g/dl (14.0-18.0)
[2024-11-03] MEDS: POLYETHYLENE (MIRALAX) 17 GM PACK PO SCH (16:41)
[2024-11-03] MEDS: SEVELAMER CARBONATE 800 MG TAB PO SCH (16:45)
[2024-11-03] MEDS: HYDROCORTISONE ACETATE 25 MG SUPP PR SCH (16:46)
[2024-11-03] MEDS: PANTOprazole 40 MG/10 ML SYR IV SCH (16:46)
[2024-11-03] MEDS: FINASTERIDE 5 MG TAB PO SCH (21:04)
[2024-11-03] MEDS: GABAPENTIN 100 MG CAP PO SCH (21:05)
[2024-11-03] MEDS: EZETIMIBE 10 MG TAB PO SCH (21:05)
[2024-11-03] MEDS: ATORVASTATIN 40 MG TAB PO SCH (21:05)
[2024-11-03] MEDS: ZOLPIDEM TARTRATE 5 MG TAB PO SCH (23:25)
[2024-11-03] MEDS: MELATONIN 3 MG TAB PO SCH (23:25)
[2024-11-04] MEDS: LEVOTHYROXINE SODIUM 137 MCG TABLET PO SCH (06:05)
[2024-11-04 06:43] LABS: Hematocrit (blood only) 26.5 % (42.0-52.0); Hemoglobin 8.3 g/dl (14.0-18.0); Immature Granulocytes # (auto) 0.05 K/uL (0.01-0.20); Immature Granulocytes % (auto) 0.6 %; Mean Corpuscular Hemoglobin 29.5 pg (25.0-34.0); Mean Corpuscular Volume 94.3 fL (80.0-100.0); Platelet Count 156 K/uL (130-400); RDW Standard Deviation 58.6 fL (36.4-46.3); Red Blood Count 2.81 M/uL (4.70-6.10); White Blood Count 7.75 K/ul (4.8-10.8)
[2024-11-04 07:32] LABS: Anion Gap 9.0 (3-11); Blood Urea Nitrogen 23.0 mg/dl (6-23); Calcium 8.5 mg/dl (8.6-10.3); Carbon Dioxide 29.0 mmol/L (21-32); Chloride 100.0 mmol/L (98-107); Creatinine Clr Calc Pharmacy 10.7 ml/min; Glucose 100.0 mg/dl (70-99(Fasting)); Magnesium 2.1 mg/dl (1.7-2.4); Potassium 4.3 mmol/L (3.5-5.1); Sodium 138.0 mmol/L (136-145)
[2024-11-04 07:53] VITALS: RESP 18
[2024-11-04] MEDS: FLUTICASONE/VILANTEROL 200/25MCG 14 PUFFS/INHALER INH SCH (08:35)
[2024-11-04] MEDS: NEPHROCAPS PO SCH (08:36)
[2024-11-04] MEDS: HYDROCORTISONE ACETATE 25 MG SUPP PR SCH (08:36)
[2024-11-04] MEDS: ISOSORBIDE MONO EXTENDED REL 30 MG TABCR PO SCH (08:36)
--- NOTE | 2024-11-04 09:28 | Gastroenterology Progress Note ---
Date of Service November 04, 2024 Assessment & Plan (1) Rectal bleeding: (2) Diarrhea: Plan Patient had some bloody, loose bowel movements over night and this morning. Case discussed with Dr. Fuentes who advised on plan. - check stool studies. orders placed for stool biofire and c diff. - continue to follow hgb/hct. transfuse as needed. - Further recommendations to come with Supervising GI provider on medical rounds. Please see co-signature comments. Admission and Anticipated Discharge Date Admission Date: November 03, 2024 Subjective patient has 2 bloody, loose bowel movements last evening and 1 bloody, loose bowel movement this morning. he denies any nausea, vomiting, heartburn, abdominal pain, rectal pain. hgb dropped from 9.2 to 8.3. The remainder of the GI ROS were unremarkable. Review of Systems Review of Systems: All systems reviewed & are unremarkable except as noted in HPI & below Physical Exam Constitutional: WD/WN, vitals as above Respiratory: normal respiratory effort, lungs clear to auscultation Cardiovascular: Rate/Rhythm: regular rate and regular rhythm Gastrointestinal (Abdomen): normal bowel sounds, soft, nontender, no hepatosplenomegaly Psychiatric: Orientation: alert and oriented x 3 Results & Data Results & Data Vital Signs (Past 12 Hours) Vital Signs Temp Pulse Pulse Resp BP Pulse Ox O2 Del Method 11/04/24 07:52 97.9 F 61 18 128/69 94 Room Air 11/04/24 02:15 98.1 F 65 16 112/68 93 Room Air 11/03/24 23:11 98.1 F 67 16 128/72 95 Room Air Coding Level of Care Code 09267 SUB INP/OBS CARE 2/35MIN Diagnoses Rectal bleeding K62.5 Diarrhea R19.7
--- NOTE | 2024-11-04 10:50 | Nephrology Progress Note ---
Date of Service November 04, 2024 Assessment & Plan (1) ESRD (end stage renal disease) on dialysis: Plan: on MWF HD via AVF at [facility]; not grossly overloaded; chemistries acceptable after HD yesterday. hemodynacmially stable no XR/ imaging needed; if pRBC needed (and would have transfusion threshold of 8 for this pt) pls contact nephro so we can transfuse w/ HD if needed > so far pRBC needs unlikely -next HD on 11/05 as OP unless he needs to stay today in which case will run him here tomorrow versus EARLy d/c and do HD as OP tomorrow (he's on second shift) Care coordinated w/ Dr Boyle regarding d/c dispo, GI and neph plans; we are in agreement (2) Rectal bleeding: Plan: per GI and primary service; hgb OP trends as above Admission and Anticipated Discharge Date Admission Date: November 03, 2024 Subjective no interval events clinically; doing ADLs; still some bleeding; no diarrhea; tolerated HD yesterday Review of Systems 2 Review of Systems: All systems reviewed & are unremarkable except as noted in Subjective Physical Exam 2 Constitutional: well developed and well nourished Eyes: EOM intact bilaterally ENMT: Mouth: + dry oral mucous membranes Respiratory: normal respiratory effort Auscultation: + diminished lung sounds Cardiovascular: Rate/Rhythm: regular rate and regular rhythm Heart Sounds: + murmur Extremities: + edema (trace, L>R) and + AV fistula (+ t/b) Gastrointestinal (Abdomen): Inspection/Auscultation: normal bowel sounds P ercussion/Palpation: abdomen soft; abdomen nontender Musculoskeletal: Extremities: strength 5/5 throughout Skin: no rashes, warm and dry Results & Data Vital Signs (Past 12 Hours) Vital Signs Temp Pulse Pulse Resp BP Pulse Ox O2 Del Method 11/04/24 07:52 36.6 C 61 18 128/69 94 Room Air 11/04/24 02:15 36.7 C 65 16 112/68 93 Room Air 11/03/24 23:11 36.7 C 67 16 128/72 95 Room Air Laboratory Results 11/04/24 05:55 11/04/24 05:55
[2024-11-04 10:51] VITALS: BP 111/64; TEMP 97.5; O2SAT 96
--- NOTE | 2024-11-04 12:32 | Discharge Summary ---
Discharge Summary Date of Service November 04, 2024 Principal Dx & Hospital Course #1 = Principal Diagnosis (1) Internal bleeding hemorrhoids: (2) ESRD (end stage renal disease) on dialysis: (3) COPD (chronic obstructive pulmonary disease): (4) CAD (coronary artery disease): (5) Hypertension: (6) Enlarged prostate with lower urinary tract symptoms (LUTS): (7) Hypothyroid: Plan Patient 89-year-old gentleman who presented to the emergency room for the second time in a couple days with complaints of rectal bleeding. Initial ER visit it was recommended that he use Preparation H for hemorrhoidal bleeding. He did go and get this but only used it once or twice and came to the emergency room because he continued with rectal bleeding. In the emergency room hemoglobin was stable but was referred for admission due to his complaints. Patient was observed in the hospital. He did have some ongoing bright red rectal bleeding. Was seen by gastroenterology who recommended Anusol HC suppositories. They did not feel that he needed any inpatient endoscopy or procedure. They recommended referral to outpatient colorectal surgery for possible hemorrhoidal banding. Time my evaluation patient was eating lunch. He is willing to give the Anusol suppositories to try. There were some minor external hemorrhoidal tissue on exam no active bleeding. Hemoglobin was stable. He will continue his usual hemodialysis session tomorrow. To be discharged home with plans to help him coordinate and refer to outpatient colorectal surgery. at the bedside at time of discharge and agreeable to the plan of care as well. Notes For Next Care Provider Medication Changes From Visit Anusol suppositories Admission HPI Per Admitting Provider This is an 89 y/o male with ESRD on HD (MWF), chronic diastolic HF, COPD, HTN, hypothyroidism, LONI, CAD s/p angioplasty with stent, dyslipidemia, GERD, BPH, and other history as outlined below who presents to the ED today with ongoing rectal bleeding. Pt reports that his symptoms started three days ago. He was seen in the ED two days ago - bleeding thought likely due to hemorrhoids. He was discharged with phenylephrine with witch campbell to use for hemorrhoids. However, pt reports continued issues with intermittent rectal bleeding, no pattern that he has noted. Currently having intermittent dark bleeding, no significant stool mixed in, no blood clots noted. At baseline his bowel pattern is irregular, may only have 2-3 BM/week, +straining at times. He uses prn Miralax ~2x/week but is unsure if this helps. Bowel pattern has not changed recently. Abdomen feels uncomfortable and unsettled preceding the episodes of bleeding, better after. Denies significant abdominal pain. Denies N/V, heartburn, indigestion. On daily omeprazole, which works well. He does take low-dose aspirin daily. He reports stable MARKS, which he attributes to known COPD. Using nebulizer prn, which helps. Denies CP, palpitations, dizziness, syncope. On HD M// - still makes urine but has not noted any hematuria. Appetite fair but stable, weight stable. He reports a similar episode of bleeding six years ago, for which he had a procedure that worked well. No issues with bleeding since that procedure. Last colonoscopy in August 2019 - reports he was told not to have another. Colonoscopy 08/28/19 - fair prep, non-thrombosed external hemorrhoids, moderate internal hemorrhoids, 6 mm transverse colon polyp (early tubular adenoma, negative for high-grade dysplasia), mild diverticulosis in ascending colon, moderate diverticulosis in the sigmoid and descending colon, exam o/w normal. Admission Exam Per Admitting Provider See H&P Discharge Exam Constitutional: Alert, nontoxic HEENT: Mucous membranes moist. Lungs: Clear to auscultation, decreased, no wheezes rales or rhonchi CV: S1-S2, regular Abdomen: Soft, nontender, nondistended Extremities: No significant edema AV fistula left upper extremity Rectal exam: External exam of the rectum, some noninflamed hemorrhoidal tissue. No evidence of active bleeding Neuro: No focal deficits Psych: Cooperative, normal mood Updated Medication List Medication Instructions Recorded Confirmed Type allopurinol 100 mg tablet 100 mg PO QAM 10/30/17 11/03/24 History (Zyloprim) melatonin 3 mg tablet 3 mg PO HS Sleep 10/30/17 11/03/24 History omeprazole 20 mg capsule,delayed 20 mg PO QAM 10/30/17 11/03/24 History release aspirin 81 mg tablet,delayed 81 mg PO QAM 05/31/19 11/03/24 History release zolpidem 10 mg tablet (Ambien) 10 mg PO HS Sleep 08/05/20 11/03/24 History atorvastatin 80 mg tablet (Lipitor) 40 mg PO QPM 09/16/20 11/03/24 History fluticasone furoate 200 1 inh inhalation DAILY #28 ea 03/10/21 11/03/24 Rx mcg-vilanterol 25 mcg/dose inhalation powder (Breo Ellipta) amlodipine 10 mg tablet 10 mg PO QAM 11/27/22 11/03/24 History ezetimibe 10 mg tablet (Zetia) 10 mg PO QPM 11/27/22 11/03/24 History isosorbide mononitrate 30 mg 30 mg PO QAM 11/27/22 11/03/24 History tablet,extended release 24 hr lisinopril 40 mg tablet 40 mg PO QAM 11/27/22 11/03/24 History polyethylene glycol 3350 17 gram 17 g PO DAILY PRN constipation 11/27/22 11/03/24 History oral powder packet sevelamer carbonate 800 mg tablet 800 - 1,600 mg PO DIRECTED 11/27/22 11/03/24 History ipratropium bromide 0.02 % 2.5 ml inhalation QID shortness of 11/28/22 11/03/24 Rx solution for inhalation breath or wheezing #300 mL albuterol sulfate 2.5 mg/3 mL 2.5 mg (3 mL) inhalation QID 11/29/23 11/03/24 Rx (0.083 %) solution for nebulization shortness of breath or wheezing #360 mL carvedilol 12.5 mg tablet 12.5 mg PO BIDM 11/01/24 11/03/24 History dutasteride 0.5 mg capsule 0.5 mg PO QPM 11/01/24 11/03/24 History (Avodart) gabapentin 100 mg capsule 100 mg PO HS 11/01/24 11/03/24 History levothyroxine 137 mcg tablet 137 mcg PO DAILYBB 11/01/24 11/03/24 History phenylephrine-witch campbell 0.25 1 applic topical BID PRN 11/01/24 11/03/24 Rx %-50 % topical gel (Preparation H hemorrhoids #26 grams (phenylephrine,witch campbell)) vitamin B complex and vitamin C 1 cap PO QAM 11/01/24 11/03/24 History no.20-folic acid 1 mg capsule (Triphrocaps) hydrocortisone acetate 25 mg See Rx Instructions .Route 11/04/24 Rx rectal suppository (Anucort-HC) .COMPLEX #24 ea polyethylene glycol 3350 17 gram 17 g PO DAILY #30 ea 11/04/24 Rx oral powder packet (Miralax) Hospital Stay Data Consultations 11/03/24 09:30 ED Decision to Admit Stat 11/03/24 10:14 Consult Gastroenterology Routine Consult Nephrology Routine Diagnostic Imagining Performed Reviewed imaging, laboratory and diagnostic studies. Pertinent findings as below. Hemoglobin 8.3 BMP consistent with his end-stage renal disease Pending Results Patient Have Any Pending Studies at Discharge: No Discharge Instructions Given to Patient (Per Discharging Provider) Recommend he use a suppository 3 times daily for the next 2 to 3 days then you can decrease the frequency as your symptoms improve We will send a referral to a colorectal surgeon and coordinate a appointment. Total Time Total Time Spent Total Time Spent (In Minutes): 32
[2024-11-04 13:25] VITALS: PULSE 67
== END 2024-11-04 14:16 | disposition home or self-care (01) | DRG 393 ==
LOC: ED 07:51 → SUATTDRO 10:16 → 2S 10:16 → INTOOBSV 10:16 → 2S 10:58